=== PATIENT | male | born 1930 | race Caucasian/White ===

== ENCOUNTER 2017-05-18 00:48 | Inpatient (IN) | payer OTHER, MEDICARE ==
[~2017-05-18] VITALS: Ht 170.2 cm; Wt 88.5 kg
[~2017-05-18 00:48] MED LIST: ALBUTEROL 3 ML3 ML INH; AMITIZA24 MCG PO; ARICEPT10 M1 PO; ATROVENT 0.02%2.5 ML INH; COUMADIN 2.5 M2.5 MG PO; COUMADIN 3 MG TA3 MG PO; COUMADIN 5 MG TA5 MG PO; CRESTOR 10MG10 MG PO; DRISDOL50000 IU PO; ECOTRIN81 MG PO; ENABLEX PO; FISH OIL500 MG PO; FLEXERIL10 MG PO; FUROSEMIDE20 MG PO; LASIX20 MG PO; LIPITOR20 M2 PO; MELATONIN3 M4 PO; MUCINEX ER600 MG PO; NEURONTIN300 M1 PO; ONE DAILY MULT1 EAC2 PO; Oxygen INH; PREDNISONE10 MG PO; PREVACID 30MG30 MG PO; PREVACID30 M1 PO; PROSCAR5 M1 PO; PROZAC 10MG10 MG PO; ROBITUSSIN NIG237 ML PO; SALINE 90 ML90 ML NASB; Senokot S PO; TRAMADOL50 MG PO
--- NOTE | 2017-05-18 01:09 | ED DYSPNEA/ASTHMA COMPLAINT ---
History of Present Illness General Chief Complaint: Dyspnea (COPD, CHF, Other) Stated Complaint: BIBA FOR EVAL DIFF BREATHER Source: patient, old records, EMS Exam Limitations: poor historian Vital Signs & Intake/Output Vital Signs & Intake/Output Vital Signs Date Time Temp Pulse Resp B/P B/P Pulse O2 O2 Flow FiO2 Mean Ox Delivery Rate 05/18 0246 97.9 108 24 101/61 93 Nasal 6.0L Cannula 05/18 0143 91 Nasal 5.0L Cannula 05/18 0108 89 Nasal 3.0L Cannula 05/18 0053 98.5 121 22 99/55 86 Nasal 3.0L Cannula Allergies Coded Allergies: Penicillins (Intermediate, HIVES/BAD RASH 09/04/15) Reconcile Medications Albuterol Sulfate (Proventil) 2.5 MG/3 ML NEB 3 ML INH Q4 PRN BREATHING PROBLEMS (Reported) Reason to Stop at ADM:TRC NEBS Atorvastatin Calcium (Lipitor) 20 MG TABLET 1 TAB PO QHS CHOLESTEROL ( Reported) Donepezil Hyrochloride (Aricept 5MG Tab) 5 MG TABLET 2 TAB PO AT BEDTIME DEMENTIA (Reported) ERGOCALCIFEROL (VITAMIN D2) (Drisdol) 50,000 UNIT CAPSULE 50,000 IU PO Q168 Vit D deficiency take for 8 weeks then see your PCP Finasteride (Proscar) 5 MG TAB 1 TAB PO DAILY PROSTATE (Reported) Gabapentin (Neurontin) 300 MG CAP 1 CAP PO AT BEDTIME PAIN (Reported) Guaifenesin (Mucinex) 600 MG TAB.ER.12H 1 TAB PO DAILY COUGH (Reported) Lansoprazole (Prevacid) 30 MG CAPSULE.DR 1 CAP PO DAILY GERD (Reported) Lubiprostone (Amitiza) 24 MCG CAPSULE 1 CAP PO DAILY GI (Reported) Melatonin 5 MG TABLET 1 TAB PO AT BEDTIME SLEEP (Reported) Multivitamin (One Daily Multivitamin) 1 EACH TABLET 1 TAB PO DAILY SUPPLEMENT (Reported) Triage Note: [facility]. PER EMS REPORT PT HAS HAD PRODUCTIVE COUGH AND FEVERS X2 DAYS. SPO2 88% ON NASAL CANULA. PT RECEIVED 125 MG OF SOLUMEDROL FROM EMS AND 1 NEB TREATMENT. RESPIRATIONS EVEN AND MODERATELY LABORED. SKIN IS PALE, WARM AND DRY. Triage Nurses Notes Reviewed? yes HPI: Patient presents for evaluation of dyspnea that began gradually about 2 days ago. Although the patient denies any associated fever or cold symptoms cough or leg swelling he states he has been wheezing. Past History Travel History Traveled to [place] past 21 day No Medical History Any Pertinent Medical History? see below for history Neurological: dementia EENT: NONE Cardiovascular: diastolic CHF, hypertension, hyperlipidemia Respiratory: COPD, obstructive sleep apnea Gastrointestinal: GERD, hiatal hernia Hepatic: NONE Renal: benign prost hyperplasia Musculoskeletal: osteoarthritis Psychiatric: depression, insomnia Endocrine: NONE Blood Disorders: DVT Cancer(s): NONE MONOTYPE CASTER/Reproductive: NONE History of MRSA: No History of VRE: No History of CDIFF: No Pneumonia Vaccine: 06/14/06 Surgical History Surgical History: stent for kidney stone Psychosocial History Who do you live with Other (see notes) What is your primary language Monegasque Tobacco Use: Cognitive Impairment Daily Tobacco Use Amount/Type: =< 4 Cigarettes daily Family History Family History, If Any: No Known Family History. Hx Contributory? No Review of Systems Review of Systems Constitutional: Reports: no symptoms. EENTM: Reports: no symptoms. Respiratory: Reports: see HPI. Cardiovascular: Reports: no symptoms. GI: Reports: no symptoms. Genitourinary: Reports: no symptoms. Musculoskeletal: Reports: no symptoms. Skin: Reports: no symptoms. Neurological/Psychological: Reports: no symptoms. Hematologic/Endocrine: Reports: no symptoms. Immunologic/Allergic: Reports: no symptoms. All Other Systems: Reviewed and Negative Physical Exam Physical Exam Respiratory: SEE BELOW Comments: Gen.: Well-nourished, well-developed, moderate respiratory distress. Tachypneic /dyspneic. Head: Normocephalic, atraumatic. Eyes: Normal inspection bilaterally Ears: Normal inspection bilaterally Nose: Normal inspection Throat/mouth : Moist mucosa Neck: Supple, full range of motion, no goiter, no JVD Heart: Rapid slightly IRRegular rate and rhythm, no murmurs rubs or gallops Lungs: Bilateral rhonchi Chest: Nontender Back: Normal range of motion Abdomen: Soft, diffuse tenderness without rebound or guarding, nondistended, normal bowel sounds Extremities: Normal range of motion grossly, equal radial pulses, no cyanosis, bilateral 1+ lower extremity pitting edema Neurologic: Cranial nerves grossly intact, speech is clear Skin: warm and dry Psychiatric: Calm, cooperative, no apparent delusions or hallucinations Core Measures ACS in differential dx? No CVA/TIA Diagnosis No Sepsis Present: Yes Sepsis Focused Exam Completed? Yes Progress Differential Diagnosis: AMI, bronchitis, CHF, pneumonia, unstable angina Plan of Care: Orders Procedure Date/time Status Clear Liquid Diet 05/18 B Active LACTIC ACID 05/18 06 Active CBC WITHOUT DIFFERENTIAL 05/18 599 Active BASIC ELECTROLYTES PLUS BUN&CR 05/18 599 Active LACTIC ACID 05/18 0334 Active Pathway - chart 05/18 033 Active House Staff 05/18 033 Active Patient Data 05/18 332 Active Patient Data 05/18 032 Active Misc Message 05/18 032 Active ED Holding Orders 05/18 032 Active Admit to inpatient 05/18 032 Active Vital Signs 05/18 032 Active Code Status 05/18 032 Active BLOOD CULTURE 05/18 031 Active Add-on Test (ER Only) 05/18 024 Active Add-on Test (ER Only) 05/18 024 Active URINALYSIS 05/18 011 Active BLOOD CULTURE 05/18 010 Active TROPONIN LEVEL 05/18 010 Complete COMPREHENSIVE METABOLIC PANEL 05/18 010 Complete CBC WITHOUT DIFFERENTIAL 05/18 010 Complete B-TYPE NATRIURETIC PEP (BNP) 05/18 010 Complete PROTHROMBIN TIME 05/18 010 Complete LACTIC ACID 05/18 010 Complete EKG 05/18 010 Active VTE Mechanical Prophylaxis 05/18 UNK Active Telemetry/Bilingual Instructor 05/18 UNK Active Current Medications Sig/Pierre Start time Last Medication Dose Stop Time Status Admin Acetaminophen 650 MG Q6PRN PRN 05/18 0345 UNVr (Tylenol) Acetaminophen 1,000 MG Q6PRN PRN 05/18 034 UNVr (Ofirmev) Ceftriaxone Sodium 1,000 MG ONCE ONE 05/18 0300 UNVr (Rocephin) 05/18 030 Heparin Sodium 4,000 UNIT ONCE ONE 05/18 030 CAN (Porcine) 05/18 030 (Heparin Bolus) Metronidazole 500 MG ONCE ONE 05/18 030 UNir (Flagyl) 05/18 035 N/A 1 UNIT (No Carrier) Sodium Chloride 500 ML BOLUS ONE 05/18 0245 UNVr 05/18 (Normal Saline 0.9%) 05/18 034 0249 Laboratory Tests 05/18/17 0333: Sodium Cancelled, Potassium Cancelled, Chloride Cancelled, Carbon Dioxide Cancelled, Anion Gap Cancelled, BUN Cancelled, Creatinine Cancelled, BUN/ Creatinine Ratio Cancelled, CBC w Diff Cancelled, WBC Cancelled, RBC Cancelled, Hgb Cancelled, Hct Cancelled, MCV Cancelled, MCH Cancelled, RDW Cancelled, Plt Count Cancelled, MPV Cancelled, PUBS MCHC Cancelled 05/18/17 0100: Anion Gap 13, Estimated GFR > 60, BUN/Creatinine Ratio 17.8, Glucose 159 H, Lactic Acid 2.3 H, Calcium 9.0, Total Bilirubin 1.0, AST 28, ALT 37, Alkaline Phosphatase 101, Troponin I 0.02, Mcl-X-Dxiyxguvcgr Pept 1390 H, Total Protein 6.6, Albumin 3.7, Globulin 2.9, Albumin/Globulin Ratio 1.3, PT 13.4 H, INR 1.28 H, CBC w Diff MAN DIFF ORDERED, RBC 4.30 L, MCV 86.7, MCH 28.3, RDW 16.5 H, MPV 8.0, Gran % 84.4 H, Lymphocytes % 8.4 L, Monocytes % 6.3, Eosinophils % 0.6, Basophils % 0.3, Absolute Granulocytes 8.1 H, Segmented Neutrophils 80 H, Band Neutrophils 3, Absolute Lymphocytes 0.8 L, Lymphocytes 9 L, Monocytes 8, Absolute Monocytes 0.6, Absolute Eosinophils 0.1, Absolute Basophils 0, Platelet Estimate ADEQUATE, Polychromasia 1+, Hypochromic-Microcytic 1+, Poikilocytosis 1 +, Ovalocytes 1+, PUBS MCHC 32.7 L, Fld Total RBCs Counted 100 Microbiology 05/18 0335 BLOOD: Blood Culture - RECD 05/18 99 BLOOD: Blood Culture - RECD Diagnostic Imaging: Discussed w/RAD: Radiology Read. CXR Impression: PATIENT: SHEILA NOLASCO PRESENT AGE: 87 PATIENT ACCOUNT NO: [id number] : 32 LOCATION: [facility] ORDERING PHYSICIAN: Javan Ragland MD SERVICE DATE: 05/18/17 EXAM TYPE: RAD - XRY-PORTABLE CHEST XRAY EXAMINATION: XR PORTABLE CHEST CLINICAL INFORMATION: Shortness of breath, cough COMPARISON: Chest radiographs dated 10/07/2015. TECHNIQUE: Portable frontal view of the chest was obtained. FINDINGS: There is redemonstrated eventration of the left hemidiaphragm which results in increased density over the heart and loss of visualization of the medial left hemidiaphragm. No focal consolidation or effusion. Cardiac mediastinal silhouette is prominent but stable. No pneumothorax. No acute osseous abnormalities. IMPRESSION: 1. No focal consolidation or effusion. 2. Increased density over the heart favored to represent chronic eventration of the left hemidiaphragm. DICTATED BY: Sonu Spangler MD DATE/TIME DICTATED:05/18/17115 EGG WORKER:SHAMEKA DATE/TIME TRANSCRIBED:05/18/17115 CONFIDENTIAL, DO NOT COPY WITHOUT APPROPRIATE AUTHORIZATION. <Electronically signed in Other Vendor System> SIGNED BY: Sonu Spangler MD 05/18/17 0123 Initial ED EKG: rate (133), AFIB Prior EKG: changed (SINUS TACHY ON PRIOR) Rhythm Strip: atrial fibrillation Comments: 05/18/2017 2:46:06 AM I have updated Sheila and his on test results to this point. With auscultation of the lungs there is wheezes and congestion over the left chest and I suspect he has a pneumonia developing despite the lack of pneumonia on chest x-ray. He also feels warm to the touch and a repeat set of vital signs being obtained. He continues to be tachypneic. I suspect a left sided pneumonia and have ordered fluids (I do not feel he is in congestive heart failure). He also appears to be in new-onset atrial fibrillation. 05/18/2017 3:13:18 AM I have initiated therapy for the patient's new onset atrial fibrillation with heparin and the diverticulitis and aspiration pneumonia with Rocephin and Flagyl. I've discussed this patient's case with Dr. Serrano. 05/18/2017 3:54:37 AM I received a call from Dr. Serrano who reviewed this patient's previous records and noted that the patient suffered an intracranial bleeding episode associated with anticoagulation for prior DVT. She has asked to discontinue the heparin orders. ED Sepsis Exam Date of Focused Sepsis Exam: 05/18/17 Time of Focused Sepsis Exam: 0330 Sepsis Cardiac Exam: Tachycardia Sepsis Resp Exam: Ronchi Sepsis Cap Refill Exam: <2 Sec Sepsis Peripheral Pulse Exam: Normal Sepsis Peripheral Pulse Location: Radial Sepsis Skin Color Exam: Normal for Ethnicity Skin Temp/Moisture Exam: Warm/Dry Departure Departure Disposition: STILL A PATIENT Condition: Guarded Clinical Impression Primary Impression: Aspiration pneumonia Qualifiers: Aspiration pneumonia type: unspecified Laterality: right Lung location: upper lobe of lung Qualified Code: J69.0 - Pneumonitis due to inhalation of food and vomit Secondary Impressions: Anemia Qualifiers: Anemia type: unspecified type Qualified Code: D64.9 - Anemia, unspecified Diverticulitis Qualifiers: Diverticulitis site: large intestine Diverticulitis bleeding: without bleeding Diverticulitis complication: without perforation or abscess Qualified Code: K57.32 - Diverticulitis of large intestine without perforation or abscess without bleeding Ureterolithiasis Referrals: Mohsen Cardona MD (PCP/Family) Departure Forms: Customer Survey General Discharge Information Admission Note Spoke With: Jael Serrano MD Documentation of Exam: Documentation of any treatments & extenuating circumstances including Concerns Regarding Discharge (functional status, medication knowledge or non-compliance, living conditions, etc.) that warrant an admission rather than observation: Patient presents with worsening dyspnea and tachypnea along with hypoxia. He has aspiration pneumonia, diverticulitis and a large obstructing ureteral calculus. This patient cannot be treated safely as an outpatient given the multitude of an acute medical issues. Given his advanced age and multiple medical comorbidities I feel he has a significant risk of mortality. In addition to the above he has what appears to be new onset atrial fibrillation, complicating his overall clinical picture. He now requires hospitalization for aggressive management of his aspiration pneumonia and diverticulitis to prevent subsequent sepsis and . He is also at high risk of urosepsis given his obstructive renal calculus. Cardiology consultation should be considered given the atrial fibrillation. Patient to be placed on continuous pvc monitor and treated with anticoagulation to prevent cardioembolic phenomenon. If necessary rate controlling medications should also be administered. Regarding the patient 's obstructive renal calculus a urology consultation should be considered the possibility of stenting. Regarding the patient's pneumonia and diverticulitis, these should be treated with IV antibiotics and pulmonary, infectious disease and GI consultations obtained as needed. Culture results should be followed and treated accordingly. Patient will require a multiple day hospitalization. Patient's current prognosis is guarded. Critical Care Note Critical Care Note Critical Care Time: 30-74 min
[2017-05-18 01:18] LABS: ABSOLUTE BASOPHIL COUNT 0 /CUMM (0.0-0.2); ABSOLUTE EOSINOPHIL COUNT 0.1 /CUMM (0.0-0.7); ABSOLUTE GRANULOCYTE CT 8.1 /CUMM (1.4-6.5); ABSOLUTE LYMPH COUNT 0.8 /CUMM (1.2-3.4); ABSOLUTE MONOCYTE COUNT 0.6 /CUMM (0.10-0.60); BASOPHIL % 0.3 % (0.0-2.0); EOSINOPHIL % 0.6 % (0-5); HEMATOCRIT 37.2 % (42-52); MEAN CORPUSCULAR HGB 28.3 PG (27.0-31.0); MEAN CORPUSCULAR HGB CONC 32.7 G/DL (33.0-37.0); MEAN CORPUSCULAR VOLUME 86.7 FL (80.0-94.0); PLATELET COUNT 191 /CUMM (130-400); RBC DISTRIBUTION WIDTH 16.5 % (11.5-14.5); WHITE BLOOD CELL COUNT 9.6 /CUMM (4.8-10.8)
[2017-05-18 01:20] LABS: GRANULOCYTE % 84.4 % (42.2-75.2)
--- NOTE | 2017-05-18 01:23 | RADIOLOGY REPORT ---
EXAMINATION: XR PORTABLE CHEST CLINICAL INFORMATION: Shortness of breath, cough COMPARISON: Chest radiographs dated 10/07/2015. TECHNIQUE: Portable frontal view of the chest was obtained. FINDINGS: There is redemonstrated eventration of the left hemidiaphragm which results in increased density over the heart and loss of visualization of the medial left hemidiaphragm. No focal consolidation or effusion. Cardiac mediastinal silhouette is prominent but stable. No pneumothorax. No acute osseous abnormalities. IMPRESSION: 1. No focal consolidation or effusion. 2. Increased density over the heart favored to represent chronic eventration of the left hemidiaphragm.
--- NOTE | 2017-05-18 02:51 | CT SCAN REPORT ---
EXAMINATION: CT CHEST, ABDOMEN AND PELVIS WITH CONTRAST CLINICAL INFORMATION: Dyspnea, rhonchi, diffuse tenderness with mild distention. COMPARISON: CTA chest dated 02/08/2014, CT abdomen and pelvis dated 11/04/2013. TECHNIQUE: Multidetector volumetric imaging was performed from the thoracic inlet through the pubic symphysis following the administration of: Oral contrast: None Intravenous contrast: 95 mL Optiray 320 No contrast reaction reported Sagittal and coronal reformatted images were obtained on the technologist workstation. Total exam dose-length product 945 mGy-cm FINDINGS: CHEST: LUNGS: Evaluation of the lung parenchyma is limited secondary to respiratory motion. There is streaky and patchy consolidation in the right lower lobe and posterior right upper lobe. There is consolidation and volume loss in the left lower lobe which may represent compressive atelectasis secondary to the patient's chronic large hiatal hernia into the posterior left hemithorax. MEDIASTINUM: Normal heart size. No pericardial effusion. No hilar or mediastinal lymphadenopathy. Large hiatal hernia containing the entire stomach filling the posterior inferior left hemithorax, unchanged from prior. VASCULAR: No thoracic aortic aneurysm or dissection. Scattered atherosclerotic vascular calcifications are noted within the thoracic aorta. Central pulmonary arteries opacify normally. ABDOMEN/PELVIS: LIVER, GALLBLADDER, AND BILIARY TREE: The liver is normal in size, shape, and attenuation. No focal hepatic lesion or biliary ductal dilatation is present. The gallbladder is unremarkable with no evidence of radiopaque gallstones, gallbladder wall thickening, or obvious pericholecystic inflammatory changes. PANCREAS: A prominent small bowel diverticulum is noted in the region of the head of the pancreas. The pancreas is mildly atrophic, with a punctate calcification in the tail the pancreas, unchanged. SPLEEN: Normal size. No focal lesion. ADRENAL GLANDS: Normal; no mass. KIDNEYS AND URETERS: There is a 1.8 cm proximal right ureteral stone with associated hydronephrosis. Additional densities within the right renal collecting system are noted measuring up to 1.6 cm transaxially, suspicious for additional nonobstructive intrarenal calculi. Bilateral exophytic lower pole renal cysts are again noted. GASTROINTESTINAL TRACT: No dilated or abnormal appearing small bowel. There is sigmoid diverticulosis. There is some focal colonic wall thickening and pericolonic fat stranding in the left lower quadrant suspicious for acute diverticulitis. The appendix is not definitively seen but there is no focal right lower quadrant inflammatory stranding to suggest acute appendicitis. ABDOMINAL WALL: No significant hernia is appreciated. LYMPHOVASCULAR STRUCTURES: No lymphadenopathy. There are diffuse atherosclerotic vascular calcifications. There is mild ectasia of the abdominal aorta without aneurysm. A permanent infrarenal IVC filter is noted. The IVC distal to this is small in caliber, unchanged from prior. BLADDER: No focal mass or wall thickening seen. No bladder calculi. PELVIC VISCERA: Unremarkable. OSSEOUS STRUCTURES: No acute or suspicious osseous abnormality. Multilevel degenerative changes are noted throughout the spine. IMPRESSION: 1. Acute diverticulitis of the proximal sigmoid colon in the left lower quadrant. No abscess or pneumoperitoneum. 2. Obstructive 1.8 cm proximal right ureteral calculus with associated right hydronephrosis. Additional large nonobstructive right sided intrarenal calculi are noted. 3. Streaky and patchy consolidation in the right lower lobe and posterior right upper lobe. Findings could represent atelectasis or pneumonia. 4. Stable large hiatal hernia containing the entire stomach.
[2017-05-18 03:08] LABS: PT 13.4 SEC (9.4-12.5)
--- NOTE | 2017-05-18 04:55 | History & Physical ---
Bennie SANTIAGO,[facility] 05/18/17 0454: General Information and HPI History of Present Illness: Mr. 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 Most of the history was obtained from patient's . According to her, she visits her regimen almost every day but for the past 1 week he seems more weak and lethargic. He started having productive cough and fever for the past 2 days. decided to bring him to the hospital after she received a call from nursing facility today regarding Mr. Umanzor spiking a temperature of 101.0. and his O2 sats were 88% on 2 L of oxygen. Patient denies any chest pain, shortness of breath, palpitations, nausea, vomiting, diarrhea/constipation, abdominal pain , pain or burning with urination or blood in the urine. Of note, patient has been wheelchair-bound for the past 2 years. Patient received IV Solu-Medrol 125 mg and 1 nebulization treatment En Route to the hospital. Allergies/Medications Allergies: Coded Allergies: Penicillins (Intermediate, HIVES/BAD RASH 09/04/15) Home Med list Atorvastatin Calcium (Lipitor) 20 MG TABLET 1 TAB PO QPM CHOLESTEROL ( Reported) Citalopram Hydrobromide (Celexa) 10 MG TABLET 0.5 TAB PO DAILY MENTAL HEALTH (Reported) Docusate Sodium 100 MG CAPSULE 1 CAP PO DAILY CONSTIPATION (Reported) Donepezil HCl (Aricept) 10 MG TABLET 1 TAB PO QPM DEMENTIA (Reported) Finasteride (Proscar) 5 MG TABLET 1 TAB PO DAILY PROSTATE (Reported) Gabapentin (Neurontin) 300 MG CAPSULE 1 CAP PO QPM PAIN (Reported) Ipratropium/Albuterol Sulfate (Iprat-Albut 0.5-3(2.5) MG/3 Ml) 0.5 MG-3 MG (2.5 MG BASE)/3 ML AMPUL.NEB 1 UNIT PO BID SHORTNESS OF BREATH (Reported) Lansoprazole (Prevacid) 30 MG CAPSULE.DR 1 CAP PO DAILY GERD (Reported) Melatonin 3 MG TABLET 1 TAB PO QPM SLEEP (Reported) Mirtazapine 30 MG TABLET 1 TAB PO QPM SLEEP (Reported) Multivitamin (One Daily Multivitamin) 1 EACH TABLET 1 TAB PO DAILY VITAMIN SUPPORT (Reported) Polyvinyl Alcohol (Artificial Tears) 1.4 % DROPS 3 DROP OS BID DRY EYE ( Reported) Sennosides (Senna) 8.6 MG TABLET 1 TAB PO BID CONSTIPATION (Reported) Past History Travel History Traveled to [place] past 21 day No Medical History Neurological: dementia EENT: NONE Cardiovascular: diastolic CHF, hypertension, hyperlipidemia Respiratory: COPD, obstructive sleep apnea Gastrointestinal: GERD, hiatal hernia Hepatic: NONE Renal: benign prost hyperplasia Musculoskeletal: osteoarthritis Psychiatric: depression, insomnia Endocrine: NONE Blood Disorders: DVT Cancer(s): NONE CORRECTIONAL NURSE/Reproductive: NONE History of MRSA: No History of VRE: No History of CDIFF: No Pneumonia Vaccine: 06/14/06 Surgical History Surgical History: stent for kidney stone Past Family/Social History Family History Relations & Conditions if any No Known Family History. Psychosocial History Where do you live? Senior Living Facility Primary Language: Macanese Smoking Status: Former Smoker ETOH Use: occasional use Illicit Drug Use: denies illicit drug use Functional Ability Ambulation: wheel chair Review of Systems Review of Systems Constitutional: Reports: weakness. EENTM: Reports: no symptoms. Cardiovascular: Reports: no symptoms. Respiratory: Reports: cough, short of breath, sputum production. GI: Reports: no symptoms. Genitourinary: Reports: no symptoms. Musculoskeletal: Reports: no symptoms. Skin: Reports: no symptoms. Neurological/Psychological: Reports: no symptoms. Hematologic/Endocrine: Reports: no symptoms. Immunologic/Allergic: Reports: no symptoms. All Other Systems: Reviewed and Negative Exam & Diagnostic Data Last 24 Hrs of Vital Signs/I&O Vital Signs Date Time Temp Pulse Resp B/P B/P Pulse O2 O2 Flow FiO2 Mean Ox Delivery Rate 05/18 0246 97.9 108 24 101/61 93 Nasal 6.0L Cannula 05/18 0143 91 Nasal 5.0L Cannula 05/18 0108 89 Nasal 3.0L Cannula 05/18 0053 98.5 121 22 99/55 86 Nasal 3.0L Cannula Intake & Output 05/18 0800 05/18 0000 05/17 1600 Intake Total 0 Output Total Balance 0 Intake, Oral 0 Patient 220 lb Weight Weight Estimated Measurement Method Physical Exam General Appearance Alert, Cooperative, No Acute Distress Skin No Rashes, No Breakdown HEENT Atraumatic, PERRLA, EOMI, dry mucous membranes Cardiovascular Normal S1, Normal S2, Irregular Lungs bilateral rhonchi Abdomen Normal Bowel Sounds, Soft, left lower quadrant tenderness Extremities No Clubbing, No Cyanosis, Normal Pulses, +1 pitting edema bilaterally Last 24 Hrs of Labs/Jack: Laboratory Tests 05/18/17 0530: pH Pending, pCO2 Pending, pO2 Pending, HCO3 Pending, ABG O2 Sat (Measured) Pending, P-50 (Temp Corrected) Pending, Carboxyhemoglobin Pending, O2 Concentration % Pending, Temperature Pending, O2 Delivery Method Pending, Phlebotomy Draw Site Pending 05/18/17 0334: Lactic Acid Cancelled 05/18/17 0333: Sodium Cancelled, Potassium Cancelled, Chloride Cancelled, Carbon Dioxide Cancelled, Anion Gap Cancelled, BUN Cancelled, Creatinine Cancelled, BUN/ Creatinine Ratio Cancelled, CBC w Diff Cancelled, WBC Cancelled, RBC Cancelled, Hgb Cancelled, Hct Cancelled, MCV Cancelled, MCH Cancelled, RDW Cancelled, Plt Count Cancelled, MPV Cancelled, PUBS MCHC Cancelled 05/18/17 0100: Anion Gap 13, Estimated GFR > 60, BUN/Creatinine Ratio 17.8, Glucose 159 H, Lactic Acid 2.3 H, Calcium 9.0, Total Bilirubin 1.0, AST 28, ALT 37, Alkaline Phosphatase 101, Troponin I 0.02, [id number]-Zlsrstoswzd Pept 1390 H, Total Protein 6.6, Albumin 3.7, Globulin 2.9, Albumin/Globulin Ratio 1.3, PT 13.4 H, INR 1.28 H, CBC w Diff MAN DIFF ORDERED, RBC 4.30 L, MCV 86.7, MCH 28.3, RDW 16.5 H, MPV 8.0, Gran % 84.4 H, Lymphocytes % 8.4 L, Monocytes % 6.3, Eosinophils % 0.6, Basophils % 0.3, Absolute Granulocytes 8.1 H, Segmented Neutrophils 80 H, Band Neutrophils 3, Absolute Lymphocytes 0.8 L, Lymphocytes 9 L, Monocytes 8, Absolute Monocytes 0.6, Absolute Eosinophils 0.1, Absolute Basophils 0, Platelet Estimate ADEQUATE, Polychromasia 1+, Hypochromic-Microcytic 1+, Poikilocytosis 1 +, Ovalocytes 1+, PUBS MCHC 32.7 L, Fld Total RBCs Counted 100 Microbiology 05/18 529 URINE ROUT: Urine Culture - ORD 05/18 502 URINE ROUT: Legionella Antigen - COLB 05/18 502 URINE ROUT: Streptococcus pneumoniae Antigen (M - COLB 05/18 050 LOWER RESP: Respiratory Culture - COLB 05/18 502 LOWER RESP: Gram Stain - COLB 05/18 033 BLOOD: Blood Culture - RECD 05/18 99 BLOOD: Blood Culture - RECD Diagnostic Data EKG Results Atrial flutter Heart rate 133 CXR Results IMPRESSION: 1. No focal consolidation or effusion. 2. Increased density over the heart favored to represent chronic eventration of the left hemidiaphragm. Other Results CT ABD & PELVIS W IV CONTRAST; CT CHEST W IV CONTRAST IMPRESSION: 1. Acute diverticulitis of the proximal sigmoid colon in the left lower quadrant. No abscess or pneumoperitoneum. 2. Obstructive 1.8 cm proximal right ureteral calculus with associated right hydronephrosis. Additional large nonobstructive right sided intrarenal calculi are noted. 3. Streaky and patchy consolidation in the right lower lobe and posterior right upper lobe. Findings could represent atelectasis or pneumonia. 4. Stable large hiatal hernia containing the entire stomach. Assessment/Plan Assessment: Mr. 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 A/P; 1. Sepsis secondary to Pneumonia(aspiration or community-acquired); Patient meets SIRS criteria with a heart rate of 121, respiratory rate of 22, blood pressure of 99/55, white blood cell count of 9.6 but high segmented neutrophils and 3 bands, a lactic acid level of 2.3 and with the chest x-ray/CT scan evidence of patchy consolidation in the right lower lobe and posterior right upper lobe suggestive of pneumonia. - We'll start the patient on ceftriaxone and Flagyl(to cover gram negatives and anaerobes) - Aspiration precautions - Follow-up blood culture - Urine strep pneumonia and legionella antigens - Continue supplemental oxygen - Continue gentle IV hydration.(We will watch for any signs of fluid overload as the patient has a history of diastolic CHF and has a proBNP of 1390). - Initial lactic acid level is 2.3, will repeat. 2. New onset atrial fibrillation; - Likely secondary to underlying infection - Will monitor heart rate - Patient has a TOD VASC score of 4, but will hold off on anticoagulation for now because of the history of intracranial bleeding with Coumadin. - Repeat strokes and EKG 2 - We'll obtain an echocardiogram - Cardiology consult 3. Diverticulitis; - Continue IV ceftriaxone and Flagyl - We'll start the patient on clear liquid diet. 4. Right ureteral calculus with right-sided hydronephrosis; - Urology consult - Follow-up UA and urine culture. 5. Chronic medical conditions; - Continue home medications. DVT prophylaxis; subcutaneous heparin Patient is full code As Ranked By This Provider Problem List: 1. Sepsis 2. Aspiration pneumonia Qualifiers Aspiration pneumonia type: unspecified Laterality: right Lung location: upper lobe of lung Qualified Code: J69.0 - Pneumonitis due to inhalation of food and vomit 3. Diverticulitis Qualifiers Diverticulitis site: large intestine Diverticulitis bleeding: without bleeding Diverticulitis complication: without perforation or abscess Qualified Code: K57.32 - Diverticulitis of large intestine without perforation or abscess without bleeding 4. Ureterolithiasis Core Measures/Misc (01/28) Acute Coronary Syndrome ACS Diagnosis: No Congestive Heart Failure Congestive Heart Failure Diagnosis No Cerebrovascular Accident CVA/TIA Diagnosis: No VTE (View Protocol) VTE Risk Factors Age>40 No Mechanical VTE Prophylaxis d/t N/A MechProphylax Ordered No VTE Pharm Prophylaxis d/t NA PharmProphylax ordered Sepsis (View protocol) Sepsis Present: Yes Kanwal Flanagan 05/18/17 0501: Resident Review Statement Resident Statement: examined this patient, discussed with manufacturing engineering intern Other Findings: Patient is a 87-year-old gentleman with a past medical history significant for hypertension hyperlipidemia, diastolic heart failure, history of DVT with IVC filter currently not on any anticoagulation due to intracranial bleed/hemorrhage presented to the ED throwing ambulance from [facility] with a chief complaints of worsening weakness , fever and productive cough. Patient is a poor historian so most of the history was obtained from the . As per , patient has been feeling more weak and lethargic for the last 1 week(bedridden most of the time). He has been having productive cough with trouble breathing as well. Appetite has been low. Today the got a call from the long-term that patient had a temperature of 101.1 and he desaturated to 88% on 2 L, was sent into the ER for further assessment. On review of systems patient denied any nausea vomiting/abdominal discomfort denied any urinary complaints. He is wheelchair-bound for the last 2 years(? No clear-cut etiology). Vitals on admission temperature 98.5, pulse 125, respiratory rate 22, blood pressure 99/55 improved to 101/61 on 3 L initially currently on 6 L. On examination General Appearance: well developed/nourished, Alert, Oriented X3, mild distress , appeared lethargic HEENT :Atraumatic,PERRLA, EOMI, Mucous Membr. Dry mucous membranes Neck: Supple, No JVD, Carotid bruits.Normal inspection, full range of motion Respiratory:decreased breath sounds with ronchi in all lung fernandes. Cardiovascular: Irregularly irregular rate and rhythm No murmurs Gastrointestinal: Normal Bowel Sounds, Soft, LLQ tenderness. Back: normal inspection Extremities: Bilateral 2+ pitting edema. Pertinent labs on admission: No evidence of leukocytosis but bandemia and granulocytosis, H&H low at 0.2/37.2 with RDW 16.5, normal BP elevated proBNP 1390 elevated lipase level to 2.3. Full set of troponin 0.02 EKG showed A. fib with RVR, rate of [address] abdomen and pelvis showed:: 1. Acute diverticulitis of the proximal sigmoid colon in the left lower quadrant. No abscess or pneumoperitoneum. 2. Obstructive 1.8 cm proximal right ureteral calculus with associated right hydronephrosis. Additional large nonobstructive right sided intrarenal calculi are noted. 3. Streaky and patchy consolidation in the right lower lobe and posterior right upper lobe. Findings could represent atelectasis or pneumonia. 4. Stable large hiatal hernia containing the entire stomach. Problem list. 1. Acute hypoxic respiratory failure with sepsis due to community-acquired pneumonia/aspiration pneumonia. 2. Acute diverticulitis of the proximal sigmoid colon 3. A. fib with RVR in the setting of underlying infection/dehydration 4. Obstructive right ureteral calculus with associated right-sided hydronephrosis. 5. Acute on chronic diastolic heart failure. 6. History of BPH 7. History of attention hyperlipidemia 8. History of dementia 9. History of COPD 10. History of GERD Plann: 1. Acute hypoxic respiratory failure with sepsis due to community-acquired pneumonia/aspiration pneumonia. * Admit the patient to telemetry floor * Continue with IV ceftriaxone. * Obtain blood and urine cultures, urine strep pneumo antigens. * Continue gentle hydration(watch for any signs of fluid overload in setting of elevated proBNP). * Monitor vitals every 4 hours * Continue oxygen saturation above 92%. 2. Acute diverticulitis of the proximal sigmoid colon: * Continue IV ceftriaxone and Flagyl. * Clear liquid diet for now. 3. A. fib with RVR in the setting of underlying infection/dehydration: * [id number] score is high, but will hold off any anticoagulation at this time due to the history of intracranial bleed. * Risks and benefits of not starting the pt on anticoagulation has been discussed with the patient and . * Will do 2 more sets of troponin and EKG. * Obtain cardiology consult the morning 4. Obstructive right ureteral calculus with associated right-sided hydronephrosis. * Obtain urology consult in the morning for stone removal/stent placement. 5. Acute on chronic diastolic heart failure. * Careful with the fluids * Obtain 2-D echocardiogram * Obtain cardiology consult 6. History of BPH * Resume medications 7. History of hypertension hyperlipidemia * Hold antihypertensive for borderline blood pressure * Continue atorvastatin 8. History of dementia * Continue Aricept. 9. History of COPD * Continue home inhalers. 10. History of GERD * Continue PPI DVT prophylaxis with Lovenox Patient is full code Jael Serrano 05/18/17 0727: Attending MD Review Statement Attending Statement Attending MD Statement: examined this patient, discuss w/resident/PA/LAB REP, agreed w/resident/PA/LAB REP, discussed with family, reviewed EMR data (avail), reviewed images, amended to note Attending Assessment/Plan: CC: Shortness of breath PMH: Dementia,HFpEF, HTN, HLD, COPD on 2 L nasal cannula and nighttime, JACK not on CPAP, BPH, history of nephrolithiasis, history of DVT and decortication secondary to intracranial hemorrhage, s/p ivc filter History is mostly obtained from patient's as patient is tachypneic and respiratory discomfort and hard of hearing. Patient's received a call from long-term that patient's fever was 101 today and his oxygen saturation dropped to 88% so he was sent to ER. According to patient's patient has been lethargic and weak since last 1 week and she has noticed productive cough, chest congestion since last 2 days patient does not endorse any nausea, vomiting , choking, abdominal pain. He is bedbound for unclear reasons, urinary incontinence. Vitals: T max 98.5, pulse 121, RR 22, blood pressure 99/55, saturating 93% on 6 L nasal cannula On exam: A O 3, cooperative, hard of hearing, moderate respiratory distress, neck supple, JVD not elevated, no lymphadenopathy, mucosa dry, decreased strength bilateral lower extremity, tone normal, bilateral lower extremity pitting edema +2, no obvious skin rashes or inflammation CVS: S1-S2, irregular. RS: Rhonchorous throughout the lung fernandes. Abdomen: Soft, tender left lower quadrant, no guarding or rigidity ND, bowel sounds present. No pressure ulcers or skin breakdowns Labs: WBC 9.6, neutrophils 84%, bands 3, hemoglobin 12.2, hematocrit 37.2, platelet 191, sodium 141, potassium 3.9, chloride 104, bicarbonate 24, BUN 16, creatinine 0.9, glucose 159, calcium 9.0, BNP 1390, lactate 2.3, INR 1.28 AB.41/36/88/23 on [address] abdomen and pelvis and chest without IV contrast: 1. Acute diverticulitis of the proximal sigmoid colon in the left lower quadrant. No abscess or pneumoperitoneum. 2. Obstructive 1.8 cm proximal right ureteral calculus with associated right hydronephrosis. Additional large nonobstructive right sided intrarenal calculi are noted. 3. Streaky and patchy consolidation in the right lower lobe and posterior right upper lobe. Findings could represent atelectasis or pneumonia. 4. Stable large hiatal hernia containing the entire stomach. Assessment and plan 87-year-old male with significant past medical history presented in ER from long-term for fever spike and hypoxia, patient has been weak and lethargic since last 1 week and who cough with sputum production and chest congestion since last 2 days. Patient is dehydrated on examination JVD is not elevated, coarse crackles on right side and wheezing and rhonchi on left side of the chest. Bilateral pedal edema, no skin rashes this tenderness on left lower quadrant on palpation. He is found to have A. fib with RVR, initially mildly hypotensive on arrival, no significant leukocytosis but left shift, lactic acidosis. Patient's proBNP is mildly elevated but patient does not appear in congestive heart failure at this point. I think his A. fib with RVR is secondary to pneumonia which is clear on has CT imaging. He also is found to have left- sided diverticulitis, obstructive 1.8 cm proximal right ureteral calculus with hydronephrosis. Given his infiltrates on right side, continue on ceftriaxone and Flagyl which will cover diverticulitis as well as pneumonia. Heart rate improved after hydration, now rate controlled medications required, currently not on heparin secondary to history of intracranial hemorrhage. I had detailed discussion with patient's regarding multiple conditions and plan. Patient has urinary incontinence. No obvious skin rashes or breakdowns + Severe sepsis secondary to pneumonia + Acute hypoxic respiratory failure secondary to pneumonia + Acute diverticulitis + Right-sided hydronephrosis with obstructing ureteric + A. fib with RVR - Admit to telemetry - Continuous telemetry monitoring - Strict I's and O's - Continue normal saline at 75 - 100 mL per hour - Watchful for any respiratory decompensation - Blood cultures, UA and urine cultures, sputum cultures, influenza - Continue IV ceftriaxone and Flagyl for now, broadened antibiotic is significant leukocytosis or fever spike to ceftaz and Flagyl consider adding vancomycin - Low threshold to transfer to ICU if patient persistently hypoxic or hypotensive - Serial troponin and EKG - Cardiology consult in a.m. - 2-D echo in a.m. - No anticoagulation for now for A. fib, risks discussed with patient's - Urology consult for hydronephrosis - Continue his home medications - Adequate pain control - TRC and nebulization with albuterol and ipratropium
--- NOTE | 2017-05-18 07:28 | Admission Certification ---
Admission Certification Certification Statement - As attending physician, I certify that at the time of - admission, based on clinical presentation, severity of - symptoms, need for further diagnostic testing and - therapeutic interventions, and risk of adverse outcomes - without in-hospital treatment, in my clinical assessment, - this patient requires an acute hospital stay for a minimum - of two nights or longer. I have also considered psychsocial - factors such as support system, advanced age, financial - issues, cognitive issues, and failed out-patient treatments, - past re-admission history, safety of patient, and lack of - compliance as applicable. Specific rationale supporting this admission is: Acute hypoxic respiratory failure secondary to pneumonia, A. fib with RVR, hydronephrosis, diverticulitis
[2017-05-18 07:50] LABS: ABSOLUTE BASOPHIL COUNT 0 /CUMM (0.0-0.2); ABSOLUTE EOSINOPHIL COUNT 0 /CUMM (0.0-0.7); ABSOLUTE LYMPH COUNT 0.9 /CUMM (1.2-3.4); HEMATOCRIT 33.5 % (42-52)
[2017-05-18 07:51] LABS: ABSOLUTE GRANULOCYTE CT 10.2 /CUMM (1.4-6.5); ABSOLUTE MONOCYTE COUNT 1.1 /CUMM (0.10-0.60); BASOPHIL % 0.2 % (0.0-2.0); EOSINOPHIL % 0.1 % (0-5); GRANULOCYTE % 82.7 % (42.2-75.2); MEAN CORPUSCULAR HGB 28.5 PG (27.0-31.0); MEAN CORPUSCULAR HGB CONC 32.9 G/DL (33.0-37.0); MEAN CORPUSCULAR VOLUME 86.4 FL (80.0-94.0); MEAN PLATELET VOLUME 8.6 FL (7.4-10.4); PLATELET COUNT 176 /CUMM (130-400); RBC DISTRIBUTION WIDTH 16.3 % (11.5-14.5); RED BLOOD CELL CT 3.88 /CUMM (4.70-6.10); WHITE BLOOD CELL COUNT 12.3 /CUMM (4.8-10.8)
[2017-05-18] MEDS ORDERED: CELEXA10 M1 PO (08:11)
[2017-05-18] MEDS ORDERED: DOCUSATE SODIU100 M3 PO (08:12)
[2017-05-18] MEDS ORDERED: ARTIFICIAL TEAR15 M8 OS (08:15)
[2017-05-18] MEDS ORDERED: SENNA8.6 M3 PO (08:16)
[2017-05-18] MEDS ORDERED: IPRAT-ALBUT 0.5-3 ML PO (08:16)
[2017-05-18] MEDS ORDERED: MIRTAZAPINE30 M2 PO (08:21)
--- NOTE | 2017-05-18 11:45 | Event Note ---
Event Note Event Note: Patient is an 85-year-old male with a past medical history of COPD on 2 L, diastolic CHF, chronic DVT status post IVC not on anticoagulation due to intracranial bleed, hypertension, hyperlipidemia, that came in from [facility] for productive cough and fever for the past 2 days. His temperature here was found to be 101.0 and O2 sats are 88% on 2 L of oxygen. He denied chest pain, shortness of breath, palpitations, nausea vomiting, diarrhea constipation, abdominal pain, bloody bowel movements, urinary incontinence, burning, hematuria. Patient's WBC count was found to be 9.6 on arrival and 13 later in the day. Hemoglobin was 12.2, creatinine 9, lactic acid was found to be 2.3 at admission and 3.4 later in the day which fell to 2.4 and then hay to 2. 6 in the evening. He was also found to have proBNP of 1390 and left shift. Chest x-ray showed no focal consolidation CT abdomen and pelvis showed acute diverticulitis of the proximal sigmoid colon in the lower left quadrant with no abscess or pneumoperitoneum. Additionally ureteral calculus with hydronephrosis is seen. CT chest showed stable large hiatal hernia containing the entire stomach and streaky and patchy consolidation in the right lower lobe and posterior right upper lobe labor representative of atelectasis or pneumonia. We took urine, lower respiratory, blood cultures and started the patient on ceftriaxone and Flagyl. We also check urine strep pneumonia and legionella antigens. We started the patient 100 mL per hour of fluid and follow lactic acid. We decided to add Vanco as patient came from [facility]. We later in the day switched ceftriaxone to ceftaz edema after consult with Quinn Redmond MD, infectious disease. He is allergic to penicillin but he was tolerating ceftriaxone well. We ordered an echocardiogram and a flu swab and increase the fluids to 125 for low blood pressure with resulting blood pressure of 110/60. We also started the patient on aspirin. Cardio consult was reportedly placed but we did not see collar closer lockstitch follow-up in the notes as of 6:30 PM. Urology was consulted for ureteral calculus with hydronephrosis.
--- NOTE | 2017-05-18 15:32 | Cons- Infect Disease ---
General Information and HPI Consulting Request Date of Consult: 05/18/17 Requested By: Siobhan Paul MD Reason for Consult: Rule out pneumonia and diverticulitis Source of Information: patient, old records Exam Limitations: clinical condition, dementia, poor historian History of Present Illness: This is an 87-year-old man, long-term resident, wheelchair bound over the past 2 years, with a history of dementia, COPD, maintained on 2 L of oxygen, obstructive sleep apnea, not on CPAP, diastolic CHF, chronic DVT, status post IVC filter and not on anticoagulation because of an intracranial bleed, hypertension, hyperlipidemia, nephrolithiasis, BPH, and GERD admitted early this morning after he was sent to the emergency room with a one-week history of lethargy and weakness and more acute onset of a productive cough and fever, with one dose of Solumedrol 125 mg and one nebulizer treatment given by EMS. On admission he was initially afebrile but developed a low-grade fever to 100.5 later in the morning. Laboratory data revealed a white blood cell count of 10, 000, BUN/creatinine 16 and 0.9, lactic acid 2.3, with normal liver enzymes, proBNP 1390, INR 1.28. ABG 7.41/36/88 on 6 L/m. Urinalysis 5-10 RBCs/3-5 WBCs. EKG revealed atrial fibrillation with a rapid ventricular response. Chest x- ray was negative. CT of the chest, abdomen and pelvis revealed diverticulitis of the proximal sigmoid colon in the left lower quadrant, an obstructive 1.8 cm proximal right ureteral calculus with associated right hydronephrosis and large nonobstructive right-sided intrarenal calculi and streaky and patchy consolidation in the right lower lobe and posterior right upper lobe. He was begun on Ceftriaxone and Flagyl and given 1 dose of Vancomycin. He is unable to provide a reliable history but at present denies any pain. He does note a cough and shortness of breath. He denies any GI or symptoms. Allergies/Medications Allergies: Coded Allergies: Penicillins (Intermediate, HIVES/BAD RASH 09/04/15) Home Med List: Atorvastatin Calcium (Lipitor) 20 MG TABLET 1 TAB PO QPM CHOLESTEROL ( Reported) Citalopram Hydrobromide (Celexa) 10 MG TABLET 0.5 TAB PO DAILY MENTAL HEALTH (Reported) Docusate Sodium 100 MG CAPSULE 1 CAP PO DAILY CONSTIPATION (Reported) Donepezil HCl (Aricept) 10 MG TABLET 1 TAB PO QPM DEMENTIA (Reported) Finasteride (Proscar) 5 MG TABLET 1 TAB PO DAILY PROSTATE (Reported) Gabapentin (Neurontin) 300 MG CAPSULE 1 CAP PO QPM PAIN (Reported) Ipratropium/Albuterol Sulfate (Iprat-Albut 0.5-3(2.5) MG/3 Ml) 0.5 MG-3 MG (2.5 MG BASE)/3 ML AMPUL.NEB 1 UNIT PO BID SHORTNESS OF BREATH (Reported) Lansoprazole (Prevacid) 30 MG CAPSULE.DR 1 CAP PO DAILY GERD (Reported) Melatonin 3 MG TABLET 1 TAB PO QPM SLEEP (Reported) Mirtazapine 30 MG TABLET 1 TAB PO QPM SLEEP (Reported) Multivitamin (One Daily Multivitamin) 1 EACH TABLET 1 TAB PO DAILY VITAMIN SUPPORT (Reported) Polyvinyl Alcohol (Artificial Tears) 1.4 % DROPS 3 DROP OS BID DRY EYE ( Reported) Sennosides (Senna) 8.6 MG TABLET 1 TAB PO BID CONSTIPATION (Reported) Past History Travel History Traveled to [place] past 21 day No Medical History Neurological: dementia EENT: NONE Cardiovascular: diastolic CHF, hypertension, hyperlipidemia Respiratory: COPD, obstructive sleep apnea Gastrointestinal: GERD, hiatal hernia Hepatic: NONE Renal: benign prost hyperplasia, nephrolithiasis Musculoskeletal: gout, osteoarthritis Psychiatric: depression, insomnia Endocrine: NONE Blood Disorders: DVT Cancer(s): NONE DENTAL CERAMIST/Reproductive: NONE History of MRSA: No History of VRE: No History of CDIFF: No Isolation History: Standard Pneumonia Vaccine: 06/14/06 Surgical History Surgical History: stent for kidney stone, neck surgery Family History Relations & Conditions If Any: No Known Family History. Psychosocial History Where Do You Live? Care Home Facility Primary Language: Icelandic Smoking Status: Former Smoker ETOH Use: occasional use Illicit Drug Use: denies illicit drug use Functional Ability Ambulation: wheel chair Review of Systems Comments U unobtainable nobtainable Exam & Diagnostic Data Last 24 Hrs of Vital Signs/I&O Vital Signs Date Time Temp Pulse Resp B/P B/P Pulse O2 O2 Flow FiO2 Mean Ox Delivery Rate 05/18 1449 98.2 84 24 115/60 94 Nasal Cannula 05/18 1343 Nasal 5.0L Cannula 05/18 1245 97.5 98 20 124/66 95 Nasal Cannula 05/18 1035 100.0 90 20 103/60 94 Nasal 6.0L Cannula 05/18 1000 97 Nasal 6.0L Cannula 05/18 0918 100.0 05/18 0834 100.5 05/18 0828 100.5 92 20 110/60 96 Nasal 6.0L Cannula 05/18 0735 99.5 90 20 95 Nasal 6.0L Cannula 05/18 0657 100.3 93 24 93/59 93 Nasal 6.0L Cannula 05/18 0512 99.0 102 24 97/56 93 Nasal 6.0L Cannula 05/18 0246 97.9 108 24 101/61 93 Nasal 6.0L Cannula 05/18 0143 91 Nasal 5.0L Cannula 05/18 0108 89 Nasal 3.0L Cannula 05/18 0053 98.5 121 22 99/55 86 Nasal 3.0L Cannula Intake & Output 05/18 1600 05/18 0800 05/18 0000 Intake Total 100 Output Total 80 Balance 20 Intake, IV 100 Intake, Oral 0 Output, Urine 80 Patient 220 lb Weight Weight Estimated Measurement Method Physical Exam Other Physical Findings: MAXIMUM TEMPERATURE 100.5. He is awake and alert in mild respiratory distress. Skin reveals no rash. HEENT negative. Neck is supple with no adenopathy. Lungs diffuse crackles and rhonchi. Heart irregular rhythm with no murmur. Abdomen is soft, tender on palpation of the left lower quadrant, with no guarding or rebound, with positive bowel sounds. Back no CVA tenderness. Extremities bilateral lower extremity edema, right greater than left. Neuro is without focality. Last 24 Hours of Lab Results: Laboratory Tests 05/18 05/18 05/18 05/18 1344 1344 0928 0705 Chemistry Lactic Acid (0.7 - 2.1 mmol/L) 2.4 H 2.9 H Troponin I (<0.11 ng/ml) 0.05 Urines Urine Color (YEL,AMB,STR) YEL Urine Clarity (CLEAR) CLEAR Urine pH (5.0 - 8.0) 6.0 Ur Specific [place] (1.001 - 1.035) 1.025 Urine Protein (NEG,<30 MG/DL) 100 H Urine Ketones (NEG) TRACE H Urine Nitrite (NEG) NEG Urine Bilirubin (NEG) NEG Urine Urobilinogen (0.1 - 1.0 EU/dl) 0.2 Ur Leukocyte Esterase (NEG) NEG Ur Microscopic SEDIMENT EXAMINED Urine RBC (0 - 5 /HPF) 5-10 H Urine WBC (0 - 2 /HPF) 3-5 H Urine Bacteria (NEG/NONE) FEW H Urine Hemoglobin (NEG) MOD H Urine Glucose (N MG/DL) NEG 05/18 05/18 05/18 0700 0633 0633 Chemistry Sodium (137 - 145 mmol/L) 142 Potassium (3.5 - 5.1 mmol/L) 4.2 Chloride (98 - 107 mmol/L) 104 Carbon Dioxide (22 - 30 mmol/L) 27 Anion Gap (5 - 16) 11 BUN (9 - 20 mg/dL) 19 Creatinine (0.7 - 1.2 mg/dL) 1.1 Estimated GFR (>60 ml/min) > 60 BUN/Creatinine Ratio (7 - 25 %) 17.3 Lactic Acid (0.7 - 2.1 mmol/L) 3.0 H Troponin I (<0.11 ng/ml) Cancelled 0.07 Hematology CBC w Diff MAN DIFF ORDERED WBC (4.8 - 10.8 /CUMM) 12.3 H RBC (4.70 - 6.10 /CUMM) 3.88 L Hgb (14.0 - 18.0 G/DL) 11.0 L Hct (42 - 52 %) 33.5 L MCV (80.0 - 94.0 FL) 86.4 MCH (27.0 - 31.0 PG) 28.5 RDW (11.5 - 14.5 %) 16.3 H Plt Count (130 - 400 /CUMM) 176 MPV (7.4 - 10.4 FL) 8.6 Gran % (42.2 - 75.2 %) 82.7 H Lymphocytes % (20.5 - 51.1 %) 7.7 L Monocytes % (1.7 - 9.3 %) 9.3 Eosinophils % (0 - 5 %) 0.1 Basophils % (0.0 - 2.0 %) 0.2 Absolute Granulocytes (1.4 - 6.5 /CUMM) 10.2 H Segmented Neutrophils (42.2 - 75.2 %) 59 Band Neutrophils (0.0 - 5.0 %) 20 H Absolute Lymphocytes (1.2 - 3.4 /CUMM) 0.9 L Lymphocytes (20.5 - 51.1 %) 8 L Monocytes (1.7 - 9.3 %) 12 H Absolute Monocytes (0.10 - 0.60 /CUMM) 1.1 H Eosinophils (0 - 5.0 %) 1 Absolute Eosinophils (0.0 - 0.7 /CUMM) 0 Absolute Basophils (0.0 - 0.2 /CUMM) 0 Platelet Estimate (ADEQUATE) ADEQUATE Normochromic RBCs VERIFIED Anisocytosis 1+ Ovalocytes 1+ Elliptocytes FEW PUBS MCHC (33.0 - 37.0 G/DL) 32.9 L 05/18 05/18 05/18 05/18 0530 0334 0333 0113 Blood Gas pH (7.35 - 7.45 PH) 7.41 pCO2 (35 - 45 TORR) 36 pO2 (80 - 100 TORR) 88 HCO3 (21 - 28 MEQ/L) 23 ABG O2 Sat (Measured) (>96.0 %) 96.0 P-50 (Temp Corrected) N Carboxyhemoglobin (1.5 - 5.0 %) 0.3 L O2 Concentration % 6L O2 Delivery Method N/C Chemistry Sodium Cancelled Potassium Cancelled Chloride Cancelled Carbon Dioxide Cancelled Anion Gap Cancelled BUN Cancelled Creatinine Cancelled BUN/Creatinine Ratio Cancelled Lactic Acid Cancelled Hematology CBC w Diff Cancelled WBC Cancelled RBC Cancelled Hgb Cancelled Hct Cancelled MCV Cancelled MCH Cancelled RDW Cancelled Plt Count Cancelled MPV Cancelled PUBS MCHC Cancelled Miscellaneous Phlebotomy Draw Site RIGHT RADIAL Urines Urine Color Cancelled Urine Clarity Cancelled Urine pH Cancelled Ur Specific [place] Cancelled Urine Protein Cancelled Urine Ketones Cancelled Urine Nitrite Cancelled Urine Bilirubin Cancelled Urine Urobilinogen Cancelled Ur Leukocyte Esterase Cancelled Ur Microscopic Cancelled Urine Hemoglobin Cancelled Urine Glucose Cancelled 05/18 010 Chemistry Sodium (137 - 145 mmol/L) 141 Potassium (3.5 - 5.1 mmol/L) 3.9 Chloride (98 - 107 mmol/L) 104 Carbon Dioxide (22 - 30 mmol/L) 24 Anion Gap (5 - 16) 13 BUN (9 - 20 mg/dL) 16 Creatinine (0.7 - 1.2 mg/dL) 0.9 Estimated GFR (>60 ml/min) > 60 BUN/Creatinine Ratio (7 - 25 %) 17.8 Glucose (65 - 99 mg/dL) 159 H Lactic Acid (0.7 - 2.1 mmol/L) 2.3 H Calcium (8.4 - 10.2 mg/dL) 9.0 Total Bilirubin (0.2 - 1.3 mg/dL) 1.0 AST (17 - 59 U/L) 28 ALT (21 - 72 U/L) 37 Alkaline Phosphatase (< 127 U/L) 101 Troponin I (<0.11 ng/ml) 0.02 Wmw-[id number]-Ljianzujokp Pept (<125 pg/mL) 1390 H Total Protein (6.3 - 8.2 g/dL) 6.6 Albumin (3.5 - 5.0 g/dL) 3.7 Globulin (1.9 - 4.2 gm/dL) 2.9 Albumin/Globulin Ratio (1.1 - 2.2 %) 1.3 Coagulation PT (9.4 - 12.5 SEC) 13.4 H INR (0.90 - 1.17) 1.28 H Hematology CBC w Diff MAN DIFF ORDERED WBC (4.8 - 10.8 /CUMM) 9.6 RBC (4.70 - 6.10 /CUMM) 4.30 L Hgb (14.0 - 18.0 G/DL) 12.2 L Hct (42 - 52 %) 37.2 L MCV (80.0 - 94.0 FL) 86.7 MCH (27.0 - 31.0 PG) 28.3 RDW (11.5 - 14.5 %) 16.5 H Plt Count (130 - 400 /CUMM) 191 MPV (7.4 - 10.4 FL) 8.0 Gran % (42.2 - 75.2 %) 84.4 H Lymphocytes % (20.5 - 51.1 %) 8.4 L Monocytes % (1.7 - 9.3 %) 6.3 Eosinophils % (0 - 5 %) 0.6 Basophils % (0.0 - 2.0 %) 0.3 Absolute Granulocytes (1.4 - 6.5 /CUMM) 8.1 H Segmented Neutrophils (42.2 - 75.2 %) 80 H Band Neutrophils (0.0 - 5.0 %) 3 Absolute Lymphocytes (1.2 - 3.4 /CUMM) 0.8 L Lymphocytes (20.5 - 51.1 %) 9 L Monocytes (1.7 - 9.3 %) 8 Absolute Monocytes (0.10 - 0.60 /CUMM) 0.6 Absolute Eosinophils (0.0 - 0.7 /CUMM) 0.1 Absolute Basophils (0.0 - 0.2 /CUMM) 0 Platelet Estimate (ADEQUATE) ADEQUATE Polychromasia 1+ Hypochromic-Microcytic 1+ Poikilocytosis 1+ Ovalocytes 1+ PUBS MCHC (33.0 - 37.0 G/DL) 32.7 L Other Body Source Fld Total RBCs Counted (%) 100 Last 24 Hours of Jack Results: Blood cultures May 18 pending Urine strep pneumo antigen and Legionella antigen May 18 negative Urine culture May 18 pending Diagnostic Data Recent Imaging Findings: Chest x-ray negative. CT of the chest, abdomen and pelvis revealed diverticulitis of the proximal sigmoid colon in the left lower quadrant, an obstructive 1.8 cm proximal right ureteral calculus with associated right hydronephrosis and large nonobstructive right-sided intrarenal calculi and streaky and patchy consolidation in the right lower lobe and posterior right upper lobe. Assessment/Plan Assessment/Plan Impression: This is an 87-year-old man, long-term resident, with a history of dementia, COPD, maintained on 2 L of oxygen, obstructive sleep apnea, not on CPAP, diastolic CHF, chronic DVT, status post IVC filter, not on anticoagulation because of an intracranial bleed, and nephrolithiasis admitted early this morning with a one-week history of lethargy and weakness and more acute onset of a productive cough and fever, found to have a low-grade fever, a mild leukocytosis with bandemia, atrial fibrillation with a CT of the chest, abdomen and pelvis revealing diverticulitis of the proximal sigmoid colon in the left lower quadrant, an obstructive 1.8 cm proximal right ureteral calculus with associated right hydronephrosis and streaky and patchy consolidation in the right lower lobe and posterior right upper lobe. His clinical picture is consistent with sepsis, with several possible sources including sigmoid diverticulitis, multilobar pneumonia and the urinary tract. He can be covered broadly initially pending cultures and further evaluation, with his antibiotics eventually narrowed based on these results. Suggestion: 1. Attempt to obtain a sputum culture 2. Would obtain a nares screen for MRSA 3. Follow-up recent cultures 4. Consider Urology evaluation 5. Discontinue Ceftriaxone 6. Begin Ceftazidime 1 g IV every 8 hours 7. Continue Vancomycin 1500 mg IV every 24 hours and Flagyl 500 mg IV every 8 hours Consult Acknowledgment - Thank you for your consult request.
[2017-05-18 16:43] VITALS: BP 115/60
--- NOTE | 2017-05-18 18:46 | PN- Att Addend ---
Attending Addendum Attending Brief Note Pt seen and examined at bedside. d/w pt and pts family at bedside the care plan. Multiple issues- Acute sigmoid diverticulitis - started on ceftazidime and flagyl. cont to monitor Rt side Pneumonia- pt is from a facility. started on vanco and ceftazidime. f/u on ID recommendations and cultures. Acute rt hydronephrosis and rt side obstructive ureteral calculus- urology consult placed. Sepsis- cont iv fluids and repeat lactic acid.
[2017-05-19 01:01] VITALS: BP 138/74
[2017-05-19 08:14] LABS: ABSOLUTE BASOPHIL COUNT 0 /CUMM (0.0-0.2); ABSOLUTE EOSINOPHIL COUNT 0.3 /CUMM (0.0-0.7); ABSOLUTE GRANULOCYTE CT 5.7 /CUMM (1.4-6.5); ABSOLUTE LYMPH COUNT 1.3 /CUMM (1.2-3.4); ABSOLUTE MONOCYTE COUNT 0.9 /CUMM (0.10-0.60); BASOPHIL % 0.1 % (0.0-2.0); EOSINOPHIL % 3.8 % (0-5); GRANULOCYTE % 68.9 % (42.2-75.2); HEMATOCRIT 33.8 % (42-52); MEAN CORPUSCULAR HGB 28.8 PG (27.0-31.0); MEAN CORPUSCULAR HGB CONC 33.2 G/DL (33.0-37.0); MEAN CORPUSCULAR VOLUME 86.7 FL (80.0-94.0); MEAN PLATELET VOLUME 8.7 FL (7.4-10.4); PLATELET COUNT 158 /CUMM (130-400); RBC DISTRIBUTION WIDTH 16.8 % (11.5-14.5); WHITE BLOOD CELL COUNT 8.2 /CUMM (4.8-10.8)
--- NOTE | 2017-05-19 08:51 | ECHOCARDIOGRAM REPORT ---
SHEILA NOLASCO Age: 87 : 1930 Gender: M Exam Date: 05/18/2017 08:51 Exam Location: ER Ht (in): 67 Wt (lb): 185 BSA: 2.01 BP: 93 / 54 Ordering Physician: Kanwal Flanagan MD Referring Physician: Kanwal Flanagan MD Technologist: Saurabh Zimmer [facility] Room Number: 1 Indications: CARDIOMYOPATHY Rhythm: Sinus Technical Quality: poor/technically limited FINDINGS Left Ventricle Small and possibly underfilled left ventricle. Normal systolic function with apical akinesis based on limited views. Diastolic filling pattern is consistent wtih impaired LV relaxation. The ejection fraction is visually estimated at 55%. Right Ventricle The right ventricle is normal is poorly visualized. Right Atrium The right atrium is normal in size. Left Atrium The left atrium is normal in size. The interatrial septum is intact. Mitral Valve The mitral valve is normal in structure and function. There is no mitral regurgitation. Aortic Valve Structurally normal aortic valve without significant sclerosis or stenosis. There is no aortic regurgitation. Tricuspid Valve The tricuspid valve is normal in structure and function. There is trace tricuspid regurgitation. Pulmonary artery systolic pressure is normal. Pulmonic Valve The pulmonic valve is not visualized. There is no detected pulmonic regurgitation. Pericardium Normal pericardium without effusion. No pleural effusion. Great Vessels Normal aortic root dimension. The aortic arch and great vessels are not seen. CONCLUSIONS 1. Technically limited study. Consider a ANNA if clinically relevent. 2. Small and possibly underfilled left ventricle. 3. Normal EF of 55% with apical akinesis based on limited views. Impaired LV relaxation is noted. 4. Trace tricuspid regurgitation. Thai Banerjee M.D. (Electronically Signed) Final Date: 19 May 2017 08:50 MEASUREMENTS (Male / Female) Normal Values 2D ECHO LVOT Diameter 2.1 cm Aortic Root Diameter 3.7 cm Ascending Aorta Diameter 3.3 cm DOPPLER AV Peak Velocity 181.0 cm/s AV Peak Gradient 13.1 mmHg AV Mean Velocity 111.0 cm/s AV Mean Gradient 6.0 mmHg AV Velocity Time Integral 27.1 cm LVOT Peak Velocity 91.7 cm/s LVOT Peak Gradient 3.4 mmHg LVOT Mean Velocity 62.1 cm/s LVOT Mean Gradient 2.0 mmHg LVOT Velocity Time Integral 17.9 cm LVOT Stroke Volume 62.0 cm AV Area Cont Eq vti 2.3 cm AV Area Cont Eq pk 1.8 cm Mitral E Point Velocity 86.4 cm/s Mitral A Point Velocity 123.0 cm/s Mitral E to A Ratio 0.7 MV Deceleration Time 415.0 ms TR Peak Velocity 163.0 cm/s TR Peak Gradient 10.6 mmHg Right Atrial Pressure 5.0 mmHg Pulmonary Artery Systolic Pressu 15.6 mmHg Right Ventricular Systolic Press 15.6 mmHg PV Peak Velocity 92.4 cm/s PV Peak Gradient 3.4 mmHg PV Mean Velocity 63.6 cm/s PV Mean Gradient 2.0 mmHg PV Velocity Time Integral 15.2 cm LV E' Lateral Velocity 7.5 cm/s Mitral E to LV E' Lateral Ratio 11.5 LV E' Septal Velocity 7.6 cm/s Mitral E to LV E' Septal Ratio 11.4
--- NOTE | 2017-05-19 08:54 | PN- Housestaff ---
Ever SANTIAGO,Cassie 05/19/17 0853: Subjective Follow-up For: Pneumonia Acute diverticulitis Tele-Events Since Last Visit: Atrial fibrillation Subjective: Seen and examined. Patient resting comfortably offers no complaints. Review of Systems Constitutional: Reports: see HPI. Objective Last 24 Hrs of Vital Signs/I&O Vital Signs Date Time Temp Pulse Resp B/P B/P Pulse O2 O2 Flow FiO2 Mean Ox Delivery Rate 05/19 1447 98.3 83 32 120/70 96 Nasal 3.0L Cannula 05/19 1055 97 Nasal 4.0L Cannula 05/19 0800 95 Nasal 4.0L Cannula 05/19 0448 96 Nasal 4.0L Cannula 05/19 0110 98.3 84 05/19 0103 Nasal 4.0L Cannula 05/19 0101 138/74 05/18 2219 98.5 84 18 116/61 94 Nasal 4.0L Cannula 05/18 1935 98 Nasal 5.0L Cannula Intake & Output 05/19 1600 05/19 0800 05/19 0000 Intake Total 1190 650 Output Total Balance 1190 650 Intake, IV 950 650 Intake, Oral 240 Patient 190 lb Weight Weight Reported by Patient Measurement Method Physical Exam General Appearance: Alert, Oriented X3, Cooperative Cardiovascular: irregular Abdomen: Normal Bowel Sounds Current Medications: Current Medications Sig/Pierre Start time Last Medication Dose Route Stop Time Status Admin Acetaminophen 650 MG Q6PRN PRN 05/18 0345 AC 05/18 PO 0834 Acetaminophen 1,000 MG Q6PRN PRN 05/18 0345 AC 05/19 IV 1502 Albuterol Sulfate 3 ML BID 05/18 1400 AC 05/19 INH 1054 Aspirin 81 MG DAILY 05/18 1000 AC 05/19 PO 0902 Atorvastatin Calcium 20 MG AT BEDTIME 05/18 2200 AC 05/18 PO 2305 Ceftazidime 0 .STK-MED ONE 05/18 1744 DC .ROUTE Ceftazidime 1,000 MG IQ8 05/18 1730 AC 05/19 IV 1610 Ceftriaxone Sodium 1,000 MG DAILY 05/19 1000 CAN IV Donepezil HCl 10 MG AT BEDTIME 05/18 2200 AC 05/18 PO 2305 Enoxaparin Sodium 40 MG DAILY 05/18 1000 AC 05/19 SC 0904 Finasteride 5 MG DAILY 05/18 1000 AC 05/19 PO 0902 Gabapentin 300 MG AT BEDTIME 05/18 2200 AC 05/18 PO 2305 Metronidazole 500 MG Q8H 05/18 0500 AC 05/19 N/A 1 UNIT IV 1242 Omeprazole 20 MG DAILY AC 05/18 0700 AC 05/19 PO 0638 Sodium Chloride 1,000 ML Q8H 05/18 1045 AC 05/19 IV 1611 Vancomycin HCl 1,500 MG Q24H 05/19 1000 AC 05/19 Sodium Chloride 250 ML IV 1028 Last 24 Hrs of Lab/Jack Results Last 24 Hrs of Labs/Mics: Laboratory Tests 05/19/17 0657: Anion Gap 10, Estimated GFR > 60, BUN/Creatinine Ratio 20.0, CBC w Diff NO MAN DIFF REQ, RBC 3.90 L, MCV 86.7, MCH 28.8, RDW 16.8 H, MPV 8.7, Gran % 68.9, Lymphocytes % 16.0 L, Monocytes % 11.2 H, Eosinophils % 3.8, Basophils % 0.1, Absolute Granulocytes 5.7, Absolute Lymphocytes 1.3, Absolute Monocytes 0.9 H, Absolute Eosinophils 0.3, Absolute Basophils 0, PUBS MCHC 33.2 05/18/17 2139: Lactic Acid 1.3 Microbiology 05/18 1710 HEAD/NECK: Surveillance Culture - CAN Cancelled: SPECIMEN NOT RECEIVED IN LABORATORY Assessment/Plan Assessment: Patient is an 85-year-old male with a past medical history of COPD on 2 L, diastolic CHF, chronic DVT status post IVC not on anticoagulation due to intracranial bleed, hypertension, hyperlipidemia, that came in from [facility] for productive cough and fever for the past 2 days. His temperature here was found to be 101.0 and O2 sats are 88% on 2 L of oxygen. He denied chest pain, shortness of breath, palpitations, nausea vomiting, diarrhea constipation, abdominal pain, bloody bowel movements, urinary incontinence, burning, hematuria. Patient's WBC count was found to be 9.6 on arrival and 13 later in the day. Hemoglobin was 12.2, creatinine 9, lactic acid was found to be 2.3 at admission and 3.4 later in the day which fell to 2.4 and then hay to 2. 6 in the evening. He was also found to have proBNP of 1390 and left shift. Chest x-ray showed no focal consolidation CT abdomen and pelvis showed acute diverticulitis of the proximal sigmoid colon in the lower left quadrant with no abscess or pneumoperitoneum. Additionally ureteral calculus with hydronephrosis is seen. CT chest showed stable large hiatal hernia containing the entire stomach and streaky and patchy consolidation in the right lower lobe and posterior right upper lobe training representative of atelectasis or pneumonia. -- Patient remains afebrile with white scar renal cell count trending down #Acute sigmoid diverticulitis * Continue ceftazidime and flagyl. # Rt side Pneumonia * Continue vanco and ceftazidime #Urology was consulted for ureteral calculus with hydronephrosis. * Recommendation pending #Rule out PE To rule out PE setting of decreased oxygenation An IVC filter is not 100% effective and a PE may lead to atrial fibrillation with decreased oxygenation * Follow-up d-dimer and lower extremity dopplers * confirmation of a PE would not alter treatment of this disorder since he cannot tolerate anticoagulation, it may prevent diagnostic studies and treatment of other causes of hypoxia. Problem List: 1. COPD Pain Ratin Pain Location: n/a Pain Goal: Pain 4 or less Pain Plan: prn Tomorrow's Labs & Rationales: as ordered Raul Padilla 05/19/17 1333: Attending MD Review Statement Attending Statement Attending MD Statement: examined this patient, discuss w/resident/PA/HOME HEALTH CAREGIVER, agreed w/resident/PA/HOME HEALTH CAREGIVER, discussed with family, reviewed EMR data (avail), discussed with nursing, discussed with case mgmt, reviewed images, amended to note Attending Assessment/Plan: Pt seen and examined at bedside. d/w pt and pts family at bedside the care plan. Acute sigmoid diverticulitis - started on ceftazidime and flagyl. cont to monitor Rt side Pneumonia- pt is from a facility. started on vanco and ceftazidime. f/u on ID recommendations and cultures. Acute rt hydronephrosis and rt side obstructive ureteral calculus- urology consult placed. Sepsis- cont iv fluids and antibiotics as per ID. Follow cultures and taper abx as per C/S. wound consutl for sacral wounds, rotuine nursing care, sacral ulcer prevention protocol.
--- NOTE | 2017-05-19 11:32 | Cons- Cardiology ---
General Information and HPI Consulting Request Date of Consult: 05/19/17 Requested By: Humberto SANTIAGO,Siobhan Jacinto History of Present Illness: This patient is an 87 year old male with history of hypertension, dyslipidemia and diastolic heart failure. He also carries a history of dementia, COPD and DVT status post IVC filter. He is not on chronic anticoagulation due to prior intracranial bleeding. This patient was sent to [facility] for evaluation of fever and productive cough. He is weak and lethargic and demonstrated a decreased oxygen saturation on 2L of supplemental oxygen. The patient himself does not know why he is here and admits to no complaints of chest discomfort, shortness of breath, lightheadedness or palpitations. His memory is extremely poor. At baseline, this patient has been wheelchair bound for about two years. He is noted to be in atrial fibrillation of unknown duration with slightly increased heart rate. Hospital evaluation has disclosed evidence of infection with impending sepsis. The source may be a sigmoid diverticulitis or pneumonia both of which have been discovered during this admission. The patient also has a right hydronephrosis. Allergies/Medications Allergies: Coded Allergies: Penicillins (Intermediate, HIVES/BAD RASH 09/04/15) Home Med List: Atorvastatin Calcium (Lipitor) 20 MG TABLET 1 TAB PO QPM CHOLESTEROL ( Reported) Citalopram Hydrobromide (Celexa) 10 MG TABLET 0.5 TAB PO DAILY MENTAL HEALTH (Reported) Docusate Sodium 100 MG CAPSULE 1 CAP PO DAILY CONSTIPATION (Reported) Donepezil HCl (Aricept) 10 MG TABLET 1 TAB PO QPM DEMENTIA (Reported) Finasteride (Proscar) 5 MG TABLET 1 TAB PO DAILY PROSTATE (Reported) Gabapentin (Neurontin) 300 MG CAPSULE 1 CAP PO QPM PAIN (Reported) Ipratropium/Albuterol Sulfate (Iprat-Albut 0.5-3(2.5) MG/3 Ml) 0.5 MG-3 MG (2.5 MG BASE)/3 ML AMPUL.NEB 1 UNIT PO BID SHORTNESS OF BREATH (Reported) Lansoprazole (Prevacid) 30 MG CAPSULE.DR 1 CAP PO DAILY GERD (Reported) Melatonin 3 MG TABLET 1 TAB PO QPM SLEEP (Reported) Mirtazapine 30 MG TABLET 1 TAB PO QPM SLEEP (Reported) Multivitamin (One Daily Multivitamin) 1 EACH TABLET 1 TAB PO DAILY VITAMIN SUPPORT (Reported) Polyvinyl Alcohol (Artificial Tears) 1.4 % DROPS 3 DROP OS BID DRY EYE ( Reported) Sennosides (Senna) 8.6 MG TABLET 1 TAB PO BID CONSTIPATION (Reported) Review of Systems Review of Systems: A review of systems is unobtainable. 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 Psychosocial History [facility] You [facility] Primary Language: Vincentian Smoking Status: Former Smoker ETOH Use: occasional use Illicit Drug Use: denies illicit drug use Functional Ability Ambulation: wheel chair Exam & Diagnostic Data Vital Signs and I&O Vital Signs Date Time Temp Pulse Resp B/P B/P Pulse O2 O2 Flow FiO2 Mean Ox Delivery Rate 05/19 1055 97 Nasal 4.0L Cannula 05/19 0448 96 Nasal 4.0L Cannula 05/19 0110 98.3 84 05/19 0103 Nasal 4.0L Cannula 05/19 0101 138/74 05/18 2219 98.5 84 18 116/61 94 Nasal 4.0L Cannula 05/18 1935 98 Nasal 5.0L Cannula 05/18 1643 95 Nasal 5.0L Cannula 05/18 1643 98.2 84 24 115/60 94 Nasal 5.0L Cannula 05/18 1449 98.2 84 24 115/60 94 Nasal Cannula 05/18 1343 Nasal 5.0L Cannula 05/18 1245 97.5 98 20 124/66 95 Nasal Cannula Intake & Output 05/19 1600 05/19 0800 05/19 0000 05/18 1600 05/18 0800 05/18 0000 Intake Total 650 980 100 Output Total 80 Balance 650 980 20 Intake, IV 650 500 100 Intake, Oral 480 0 Output, Urine 80 Patient 190 lb 220 lb Weight Weight Reported by Patient Estimated Measurement Method Physical Exam: General: WD/obese male in NAD; awake and responsive with decreased memory HEENT: NC/AT, PERRL, EOMI Neck: no JVD, no carotid bruit Heart: irregularly irregular without murmur; bowel sounds heard in chest Lungs: decreased air movement at bases bilaterally with upper airway congestion Abdomen: soft, obese, NT, +ve bowel sounds Extremities: no edema Assessment/Plan Assessment/Plan * This patient has atrial fibrillation of unkown duration. His heart rate is reasonably well controlled without medications for rate control which is almost certainly an indication of conduction system disease. An old ECG from 2016 shows a long first degree AV block that is consistent with this thought. Unfortunately , this patient is not believed to be a candidate for chronic anticoagulation due to a prior intracerebral bleeding issue. Aspirin is reasonable although it is unlikely to be helpful to prevent stroke. Please check his TSH and free T4. * Although this patient may well have pneumonia causing his decreased oxygenation upon admission, I would also consider a PE. An IVC filter is not 100 % effective and a PE may lead to atrial fibrillation with decreased oxygenation. Obtain a D-dimer and lower extremity dopplers. Although, confirmation of a PE would not alter treatment of this disorder since he cannot tolerate anticoagulation, it may prevent diagnostic studies and treatment of other causes of hypoxia. The patient appears to have very little in the way of a cough. I do not see evidence of decompensated CHF. Do not overdiurese since this patient already appears to be underfilled on his echocardiogram. Consult Acknowledgment - Thank you for your consult request.
[2017-05-19 14:47] VITALS: BP 120/70
[2017-05-19 22:30] VITALS: BP 150/74
[2017-05-20 06:30] VITALS: BP 148/78
[2017-05-20 07:52] LABS: ABSOLUTE BASOPHIL COUNT 0 /CUMM (0.0-0.2); ABSOLUTE EOSINOPHIL COUNT 0.4 /CUMM (0.0-0.7); ABSOLUTE GRANULOCYTE CT 3.9 /CUMM (1.4-6.5); ABSOLUTE LYMPH COUNT 1.4 /CUMM (1.2-3.4); ABSOLUTE MONOCYTE COUNT 0.8 /CUMM (0.10-0.60); BASOPHIL % 0.6 % (0.0-2.0); EOSINOPHIL % 5.8 % (0-5); GRANULOCYTE % 60.2 % (42.2-75.2); HEMATOCRIT 30.5 % (42-52); MEAN CORPUSCULAR HGB CONC 33.6 G/DL (33.0-37.0); MEAN CORPUSCULAR VOLUME 86.2 FL (80.0-94.0); MEAN PLATELET VOLUME 7.7 FL (7.4-10.4); PLATELET COUNT 180 /CUMM (130-400); RBC DISTRIBUTION WIDTH 16.9 % (11.5-14.5); RED BLOOD CELL CT 3.54 /CUMM (4.70-6.10); WHITE BLOOD CELL COUNT 6.4 /CUMM (4.8-10.8)
--- NOTE | 2017-05-20 09:39 | PN- Infect Dx ---
Subjective Subjective: Afebrile. He reports some shortness of breath and occasional cough, but no chest pain. He denies any abdominal pain. Objective Last 24 Hrs of Vital Signs/I&O Vital Signs Date Time Temp Pulse Resp B/P B/P Pulse O2 O2 Flow FiO2 Mean Ox Delivery Rate 05/20 0859 96 Nasal 3.0L Cannula 05/20 0630 97.8 63 20 148/78 95 05/19 2230 98.3 64 24 150/74 94 05/19 2025 Nasal 3.0L Cannula 05/19 1935 97 Nasal 4.0L Cannula 05/19 174 Nasal 4.0L Cannula 05/19 1447 98.3 83 32 120/70 96 Nasal 3.0L Cannula 05/19 1055 97 Nasal 4.0L Cannula Intake & Output 05/20 1600 05/20 0800 05/20 0000 Intake Total 400 425 Output Total Balance 400 425 Intake, IV 200 225 Intake, Oral 200 200 Physical Exam Other Physical Findings: He appears comfortable in no acute distress Lungs diffuse rhonchi and crackles Heart regular rhythm with no murmur Abdomen is soft, tender on palpation over the left lower quadrant and, to a lesser extent, the right lower quadrant, with no guarding or rebound, positive bowel sounds Back no CVA tenderness Extremities no cyanosis, clubbing or edema Results Last 24 Hours of Lab Results: Laboratory Tests 05/20 05/19 05/19 0705 2310 2240 Chemistry Sodium (137 - 145 mmol/L) 145 Potassium (3.5 - 5.1 mmol/L) 3.7 Chloride (98 - 107 mmol/L) 110 H Carbon Dioxide (22 - 30 mmol/L) 25 Anion Gap (5 - 16) 10 BUN (9 - 20 mg/dL) 17 Creatinine (0.7 - 1.2 mg/dL) 0.8 Estimated GFR (>60 ml/min) > 60 BUN/Creatinine Ratio (7 - 25 %) 21.3 TSH (0.270 - 4.200 uIU/mL) 4.110 Free T4 (0.85 - 1.93 ng/dL) 1.52 Coagulation D-Dimer High Sensitivty (0 - 243 ng/ml) 1025 H Hematology CBC w Diff NO MAN DIFF REQ WBC (4.8 - 10.8 /CUMM) 6.4 RBC (4.70 - 6.10 /CUMM) 3.54 L Hgb (14.0 - 18.0 G/DL) 10.3 L Hct (42 - 52 %) 30.5 L MCV (80.0 - 94.0 FL) 86.2 MCH (27.0 - 31.0 PG) 29.0 RDW (11.5 - 14.5 %) 16.9 H Plt Count (130 - 400 /CUMM) 180 MPV (7.4 - 10.4 FL) 7.7 Gran % (42.2 - 75.2 %) 60.2 Lymphocytes % (20.5 - 51.1 %) 21.5 Monocytes % (1.7 - 9.3 %) 11.9 H Eosinophils % (0 - 5 %) 5.8 H Basophils % (0.0 - 2.0 %) 0.6 Absolute Granulocytes (1.4 - 6.5 /CUMM) 3.9 Absolute Lymphocytes (1.2 - 3.4 /CUMM) 1.4 Absolute Monocytes (0.10 - 0.60 /CUMM) 0.8 H Absolute Eosinophils (0.0 - 0.7 /CUMM) 0.4 Absolute Basophils (0.0 - 0.2 /CUMM) 0 PUBS MCHC (33.0 - 37.0 G/DL) 33.6 Last 24 Hours of Jack Results: Blood cultures May 18 negative Urine culture May 18 negative Rapid flu swab May 18 negative Assessment/Plan Impression: Improved with temperatures and white blood cell count now normal on Vancomycin, Flagyl and Ceftazidime for sigmoid diverticulitis and possible pneumonia with cultures negative. His CT scan also demonstrated a right sided obstructive uropathy, which will warrant Urology evaluation. Suggestion: 1. Urology evaluation in the a.m. 2. Discontinue Vancomycin and Ceftazidime 3. Begin Ceftriaxone 1 g IV every 24 hours 4. Continue Flagyl
--- NOTE | 2017-05-20 11:01 | PN- Cardiology ---
Subjective Subjective: * Mild shortness of breath. * Patient converted to a sinus rhythm with first degree AV block. * No evidence for a PE on his chest CT Objective Vital Signs and I&Os Vital Signs Date Time Temp Pulse Resp B/P B/P Pulse O2 O2 Flow FiO2 Mean Ox Delivery Rate 05/20 0859 96 Nasal 3.0L Cannula 05/20 0630 97.8 63 20 148/78 95 05/19 2230 98.3 64 24 150/74 94 05/19 2025 Nasal 3.0L Cannula 05/19 1935 97 Nasal 4.0L Cannula 05/19 174 Nasal 4.0L Cannula 05/19 1447 98.3 83 32 120/70 96 Nasal 3.0L Cannula 05/19 1055 97 Nasal 4.0L Cannula Intake & Output 05/20 1600 05/20 0805/20 0000 05/19 1600 05/19 0800 05/19 0000 Intake Total 632 740 7611 650 Output Total Balance 352 117 5026 650 Intake, IV 200 225 950 650 Intake, Oral 200 200 240 Patient 190 lb Weight Weight Reported by Patient Measurement Method Physical Exam: General: WD/obese male in NAD; awake and responsive with decreased memory HEENT: NC/AT, PERRL, EOMI Neck: no JVD, no carotid bruit Heart: RRR without murmur; bowel sounds heard in chest Lungs: decreased air movement at bases bilaterally with upper airway congestion and diffuse crackles Abdomen: soft, obese, NT, +ve bowel sounds Extremities: no edema Assessment/Plan Assessment/Plan * This patient presented with atrial fibrillation of unkown duration. His heart rate was reasonably well controlled without medications which is indicative of conduction system disease. He is now in a sinus rhythm. Begin Multaq 400mg BID to maintain a sinus rhythm and avoid the need for chronic anticoagulation. If he becomes bradycardic then Aricept can be stopped. TFT's have been normal. Unfortunately, this patient is not believed to be a candidate for chronic anticoagulation due to a prior intracerebral bleeding issue. Aspirin is reasonable although it is unlikely to be helpful to prevent stroke. * Although this patient may well have pneumonia causing his decreased oxygenation upon admission, I would also consider a PE. An IVC filter is not 100 % effective and a PE may lead to atrial fibrillation with decreased oxygenation. His chest CT was negative for any central pulmonary embolism but his D-dimer is quite high. Obtain a LE ultrasound. The patient appears to have very little in the way of a cough. I do not see evidence of decompensated CHF. Do not overdiurese since this patient already appears to be underfilled on his echocardiogram. Continue telemetry? Yes
--- NOTE | 2017-05-20 11:21 | PN- Housestaff ---
See Addendum Gold SANTIAGO,Radha 05/20/17 1121: Subjective Follow-up For: Pneumonia New onset A. fib with RVR Reticulitis Ureteral calculus Chronic and new acute DVTs Subjective: Patient was seen and examined. Patient notes no complaints. He denies any chest pain, shortness of breath, abdominal pain. Review of Systems Constitutional: Reports: no symptoms. Objective Last 24 Hrs of Vital Signs/I&O Vital Signs Date Time Temp Pulse Resp B/P B/P Pulse O2 O2 Flow FiO2 Mean Ox Delivery Rate 05/20 1600 Nasal 3.0L Cannula 05/20 1535 64 124/78 05/20 1450 98.7 64 36 124/78 98 Nasal 3.0L Cannula 05/20 0859 96 Nasal 3.0L Cannula 05/20 08 93 Nasal 3.0L Cannula 05/20 0630 97.8 63 20 148/78 95 05/19 2230 98.3 64 24 150/74 94 05/19 2026 Nasal 3.0L Cannula 05/19 1935 97 Nasal 4.0L Cannula 05/19 1747 Nasal 4.0L Cannula Intake & Output 05/20 1600 05/20 0800 05/20 0000 Intake Total 950 400 425 Output Total Balance 950 400 425 Intake, IV 750 200 225 Intake, Oral 200 200 200 Number 1 Bowel Movements Patient 195 lb Weight Weight Bed scale Measurement Method Physical Exam General Appearance: Alert, Oriented X3, Cooperative, No Acute Distress Skin: No Rashes, No Breakdown, No Significant Lesion Skin Temp/Moisture Exam: Warm/Dry HEENT: Atraumatic Cardiovascular: Normal S1, Normal S2, No Murmurs, Gallops Lungs: Clear to Auscultation Abdomen: Normal Bowel Sounds, Soft, No Tenderness Neurological: Normal Speech, Strength at 5/5 X4 Ext, Normal Tone, Sensation Intact, Cranial Nerves 3-12 NL, Reflexes 2+ Extremities: No Clubbing, No Cyanosis, No Edema, Normal Pulses, No Tenderness/ Swelling Current Medications: Current Medications Sig/Pierre Start time Last Medication Dose Route Stop Time Status Admin Acetaminophen 650 MG Q6PRN PRN 05/18 0345 AC 05/18 PO 0834 Acetaminophen 1,000 MG Q6PRN PRN 05/18 0345 AC 05/19 IV 1502 Albuterol Sulfate 3 ML BID 05/18 1400 AC 05/20 INH 0851 Aspirin 81 MG DAILY 05/18 1000 AC 05/20 PO 0845 Atorvastatin Calcium 20 MG AT BEDTIME 05/18 2200 AC 05/19 PO 2032 Ceftazidime 1,000 MG IQ8 05/18 1730 DC 05/20 IV 0844 Ceftriaxone Sodium 1,000 MG DAILY@1400 05/20 1400 AC 05/20 IV 1536 Donepezil HCl 10 MG AT BEDTIME 05/18 2200 AC 05/19 PO 203 Dronedarone 400 MG BID 05/20 1315 AC 05/20 PO 1535 Enoxaparin Sodium 40 MG DAILY 05/18 1000 AC 05/20 SC 0845 Finasteride 5 MG DAILY 05/18 1000 AC 05/20 PO 0845 Gabapentin 300 MG AT BEDTIME 05/18 2200 AC 05/19 PO 203 Heparin Sodium 25,000 UNIT Q24H 05/20 1345 AC 05/20 (Porcine) IV 1535 Sodium Chloride 500 ML Melatonin 5 MG ONCE ONE 05/19 2130 DC 05/19 PO 05/19 2131 2220 Metronidazole 500 MG Q8H 05/18 0500 AC 05/20 N/A 1 UNIT IV 1256 Omeprazole 20 MG DAILY AC 05/18 0700 AC 05/20 PO 0523 Sodium Chloride 1,000 ML Q8H 05/18 1045 DC 05/20 IV 0418 Vancomycin HCl 1,500 MG Q24H 05/19 1000 DC 05/20 Sodium Chloride 250 ML IV 1018 Last 24 Hrs of Lab/Jack Results Last 24 Hrs of Labs/Mics: Laboratory Tests 05/20/17 0705: Anion Gap 10, Estimated GFR > 60, BUN/Creatinine Ratio 21.3, CBC w Diff NO MAN DIFF REQ, RBC 3.54 L, MCV 86.2, MCH 29.0, RDW 16.9 H, MPV 7.7, Gran % 60.2, Lymphocytes % 21.5, Monocytes % 11.9 H, Eosinophils % 5.8 H, Basophils % 0.6, Absolute Granulocytes 3.9, Absolute Lymphocytes 1.4, Absolute Monocytes 0.8 H, Absolute Eosinophils 0.4, Absolute Basophils 0, PUBS MCHC 33.6 05/19/17 2310: D-Dimer High Sensitivty 1025 H 05/19/17 2240: TSH 4.110, Free T4 1.52 Assessment/Plan Assessment: Patient is an 85-year-old male with a past medical history of COPD on 2 L, diastolic CHF, chronic DVT status post IVC not on anticoagulation due to intracranial bleed, hypertension, hyperlipidemia, that came in from [facility] for productive cough and fever for the past 2 days. His temperature here was found to be 101.0 and O2 sats are 88% on 2 L of oxygen. He denied chest pain, shortness of breath, palpitations, nausea vomiting, diarrhea constipation, abdominal pain, bloody bowel movements, urinary incontinence, burning, hematuria. Patient's WBC count was found to be 9.6 on arrival and 13 later in the day. Hemoglobin was 12.2, creatinine 9, lactic acid was found to be 2.3 at admission and 3.4 later in the day which fell to 2.4 and then hay to 2. 6 in the evening. He was also found to have proBNP of 1390 and left shift. Chest x-ray showed no focal consolidation CT abdomen and pelvis showed acute diverticulitis of the proximal sigmoid colon in the lower left quadrant with no abscess or pneumoperitoneum. Additionally ureteral calculus with hydronephrosis is seen. CT chest showed stable large hiatal hernia containing the entire stomach and streaky and patchy consolidation in the right lower lobe and posterior right upper lobe parts counter representative of atelectasis or pneumonia. -- Patient remains afebrile with white blood cell count trending down #Acute sigmoid diverticulitis * Continue Flagyl # Rt side Pneumonia * As per infectious disease we will stop Vanco and ceftaz and start ceftriaxone #Urology was consulted for ureteral calculus with hydronephrosis. * Recommendation pending #Rule out PE To rule out PE setting of decreased oxygenation, IVC filter is not 100% effective and a PE may lead to atrial fibrillation with decreased oxygenation, we ordered a d-dimer which was elevated and lower extremity Dopplers which were positive for chronic DVT as well as acute new DVTs. * Patient had previous brain bleed in February 2015. Head MRI showed late subacute hemorrhage centered within the left cingulate gyrus causing subtle distortion of the left lateral ventricle. No midline shift or herniation found. The cause of the brain bleed was never elucidated. 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 * We followed up with Dr. Joshua, neurologist who saw the patient when he had his previous brain bleed in 2014. He recommended we give heparin drip for now and that he would see the patient tomorrow. In his notes from 2014 he attributed the patient's symptoms to cervical spine issues and not to the brain bleed. However, the brain bleed did occur and following this, the patient was placed in an IVC filter. Problem List: 1. Ureterolithiasis 2. Diverticulitis 3. Aspiration pneumonia 4. Deep venous thrombosis of lower extremity Pain Ratin Pain Location: none Pain Goal: Remain pain free Pain Plan: As needed Tomorrow's Labs & Rationales: CBC, BEP ValerieRaul 05/20/17 1352: Attending MD Review Statement Attending Statement Attending MD Statement: examined this patient, discuss w/resident/PA/PHARMACY INTAKE COORDINATOR, agreed w/resident/PA/PHARMACY INTAKE COORDINATOR, discussed with family, reviewed EMR data (avail), discussed with nursing, discussed with case mgmt, reviewed images, amended to note Attending Assessment/Plan: Pt seen and examined at bedside. d/w pt and pts family at bedside the care plan. Pateint with high D dimer and positive USG for b/l DVT. Patient started here on empiric antibitoics for possible urine, bowel, lung source now switched to ceftriaxone and flagyl. Acute sigmoid diverticulitis - abx as per ID Rt side Pneumonia- abx as per ID Acute rt hydronephrosis and rt side obstructive ureteral calculus- urology consult f/u. Sepsis- cont iv fluids and antibiotics as per ID. Follow cultures and taper abx as per C/S. Patient with elevated d dimer and USG b/l DVT with high suspicion of PE now. Cardiology recommend anticogualtion. Spoke to and obtained any history of bleed in past which she concurrs to small intracranial bleed. We discussed risks /benefits of current anticoagulation in this difficult scenario and she wants to proceed with anticaogualton for now. Will place him on frequent neurochecks with start of iv heparin which could be easily reversed if needed. We discussed plan with patient who agrees to his . wound consult for sacral wounds, routine nursing care, sacral ulcer prevention protocol.
--- NOTE | 2017-05-20 12:33 | ULTRASOUND REPORT ---
EXAMINATION: US TRIPLEX OF LOWER EXTREMITIES, BILATERAL CLINICAL INFORMATION: Pain and swelling. Evaluate for DVT. COMPARISON: Bilateral lower extremity venous Doppler ultrasound dated 05/20/2017. TECHNIQUE: Color-flow triplex imaging with spectral analysis and compression Doppler were performed on the lower extremities. FINDINGS: On previous imaging, chronic DVT was seen in the proximal left femoral vein. There now appears to be superimposed acute thrombosis, partially occlusive in the left common femoral vein and proximal and mid femoral vein and occlusive in the distal left femoral vein into the popliteal vein. Calf veins are not adequately assessed. In the right lower extremity, approximately nonocclusive and distally occlusive thrombus is seen extending from the common femoral down to the popliteal vein. Calf veins are not adequately assessed. IMPRESSION: Bilateral acute DVT extending from the common femoral to the popliteal vein. On the left side, findings are superimposed upon chronic femoral DVT. This critical result was discussed with Dr. Garcia 05/20/2017, 12:25 PM and it was ascertained that the content and urgency of this report was understood at the time of direct communication.
--- NOTE | 2017-05-20 12:53 | Event Note ---
Event Note Event Note: Bilateral acute DVT extending from the common femoral to the popliteal vein. On the left side, findings are superimposed upon chronic femoral DVT. 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 Patient was on Coumadin in the past for 5 years however it was stopped in 2014 after he was found to have intracranial hemorrhage. * Discussed with attending physician and Dr. Banerjee systems librarian. * Recommended to get stat call back from neurologist regarding anticoagulation. * Spoke with neurologist over the phone regarding starting IV heparin drip for anticoagulation for recurrent DVT and questionable PE given elevated d- dimers. * Dr. Moy agreed to start IV heparin. * Neurology will be seeing Mr. Umanzor on Sunday. * Discussed in detail with his at bedside, who agreed with the plan. * Patient was started on IV heparin drip. * Placed on every 2hr neuro checks.
[2017-05-20 14:50] VITALS: BP 124/78
[2017-05-20 22:17] VITALS: BP 140/76
[2017-05-20 22:51] LABS: PTT 49 SEC (25-37)
[2017-05-21 06:33] VITALS: BP 160/80
[2017-05-21 08:05] LABS: ABSOLUTE BASOPHIL COUNT 0 /CUMM (0.0-0.2); ABSOLUTE EOSINOPHIL COUNT 0.3 /CUMM (0.0-0.7); ABSOLUTE GRANULOCYTE CT 5.3 /CUMM (1.4-6.5); ABSOLUTE LYMPH COUNT 1.9 /CUMM (1.2-3.4); ABSOLUTE MONOCYTE COUNT 0.8 /CUMM (0.10-0.60); BASOPHIL % 0.3 % (0.0-2.0); EOSINOPHIL % 3.6 % (0-5); GRANULOCYTE % 63.3 % (42.2-75.2); HEMATOCRIT 30.9 % (42-52); MEAN CORPUSCULAR HGB 28.8 PG (27.0-31.0); MEAN CORPUSCULAR HGB CONC 33.5 G/DL (33.0-37.0); MEAN CORPUSCULAR VOLUME 85.9 FL (80.0-94.0); MEAN PLATELET VOLUME 7.7 FL (7.4-10.4); PLATELET COUNT 200 /CUMM (130-400); RBC DISTRIBUTION WIDTH 16.1 % (11.5-14.5); WHITE BLOOD CELL COUNT 8.3 /CUMM (4.8-10.8)
[2017-05-21 08:29] LABS: PTT 106 SEC (25-37)
--- NOTE | 2017-05-21 10:25 | PN- Housestaff ---
Gold SANTIAGO,Radha 05/21/17 1025: Subjective Follow-up For: Pneumonia New onset A. fib with RVR Reticulitis Ureteral calculus Chronic and new acute DVTs History of intracranial bleed Swallowing difficulties Complaints: pain scale (0-10) Tele-Events Since Last Visit: Normal sinus rhythm until 7:41 AM when he went into A. fib at a rate of 58. Patient went back into sinus rhythm at 8:41 AM with a rate of 74. Subjective: Patient seen and examined. He states that he is thirsty and wants a Coke. Patient is on nectar thick liquids. The patient has no other complaints and states that he feels okay". Review of Systems Constitutional: Reports: no symptoms. EENTM: Reports: no symptoms. Cardiovascular: Reports: no symptoms. Respiratory: Reports: no symptoms. Gastrointestinal: Reports: no symptoms. Genitourinary: Reports: no symptoms. Musculoskeletal: Reports: no symptoms. Skin: Reports: no symptoms. Neurological/Psychological: Reports: no symptoms. Hematologic/Endocrine: Reports: no symptoms. Immunologic/Allergic: Reports: no symptoms. Objective Last 24 Hrs of Vital Signs/I&O Vital Signs Date Time Temp Pulse Resp B/P B/P Pulse O2 O2 Flow FiO2 Mean Ox Delivery Rate 05/21 1451 98.3 65 24 132/70 96 Nasal 3.5L Cannula 05/21 1147 95 Nasal 3.0L Cannula 05/21 1020 75 140/84 05/21 0800 Nasal 3.0L Cannula 05/21 0633 97.5 75 36 160/80 95 Nasal 3.0L Cannula 05/20 2242 Nasal 3.0L Cannula 05/20 2217 97.4 77 32 140/76 95 Nasal Cannula 05/20 2130 64 140/76 05/20 1947 95 Nasal 2.0L Cannula 05/20 1600 Nasal 3.0L Cannula 05/20 1535 64 124/78 Intake & Output 05/21 1600 05/21 0800 05/21 0000 Intake Total 849.85 460 970 Output Total Balance 849.85 460 970 Intake, IV 309.85 340 200 Intake, Oral 540 120 770 Number 1 Bowel Movements Physical Exam General Appearance: Alert, Cooperative, No Acute Distress Skin: No Rashes Skin Temp/Moisture Exam: Warm/Dry Sepsis Skin Exam (color): Normal for Ethnicity HEENT: Atraumatic, PERRLA Cardiovascular: Normal S1, Normal S2 Lungs: Clear to Auscultation, Normal Air Movement Abdomen: Normal Bowel Sounds, Soft Neurological: Normal Speech Extremities: No Clubbing, No Cyanosis Vascular: Pulses Symmetrical Current Medications: Current Medications Sig/Pierre Start time Last Medication Dose Route Stop Time Status Admin Acetaminophen 650 MG Q6PRN PRN 05/18 0345 AC 05/18 PO 0834 Acetaminophen 1,000 MG Q6PRN PRN 05/18 0345 AC 05/19 IV 1502 Albuterol Sulfate 3 ML BID 05/18 1400 AC 05/21 INH 1144 Aspirin 81 MG DAILY 05/18 1000 AC 05/21 PO 1019 Atorvastatin Calcium 20 MG AT BEDTIME 05/18 2200 AC 05/20 PO 2129 Ceftriaxone Sodium 1,000 MG DAILY@1400 05/20 1400 AC 05/21 IV 1446 Donepezil HCl 10 MG AT BEDTIME 05/18 2200 AC 05/20 PO 2129 Dronedarone 400 MG BID 05/20 1315 AC 05/21 PO 1020 Enoxaparin Sodium 40 MG DAILY 05/18 1000 DC 05/20 SC 0845 Finasteride 5 MG DAILY 05/18 1000 AC 05/21 PO 1020 Gabapentin 300 MG AT BEDTIME 05/18 2200 AC 05/20 PO 2130 Heparin Sodium 5,000 UNIT .STK-MED ONE 05/21 0022 DC (Porcine) IV 05/21 0023 Heparin Sodium 3,540 UNIT BOLUS ONE 05/21 0020 DC 05/21 (Porcine) IV 05/21 0021 0020 Heparin Sodium 25,000 UNIT Q24H 05/20 1345 AC 05/21 (Porcine) IV 1021 Sodium Chloride 500 ML Metronidazole 500 MG Q8H 05/18 0500 AC 05/21 N/A 1 UNIT IV 1155 Omeprazole 20 MG DAILY AC 05/18 0700 AC 05/21 PO 0501 Last 24 Hrs of Lab/Jack Results Last 24 Hrs of Labs/Mics: Laboratory Tests 05/21/17 0600: Anion Gap 14, Estimated GFR > 60, BUN/Creatinine Ratio 16.3, APTT 106 *H, CBC w Diff NO MAN DIFF REQ, RBC 3.60 L, MCV 85.9, MCH 28.8, RDW 16.1 H, MPV 7.7, Gran % 63.3, Lymphocytes % 23.1, Monocytes % 9.7 H, Eosinophils % 3.6, Basophils % 0.3, Absolute Granulocytes 5.3, Absolute Lymphocytes 1.9, Absolute Monocytes 0.8 H, Absolute Eosinophils 0.3, Absolute Basophils 0, PUBS MCHC 33.5 05/20/17 2158: APTT 49 H Assessment/Plan Assessment: Patient is an 85-year-old male with a past medical history of COPD on 2 L, diastolic CHF, chronic DVT status post IVC not on anticoagulation due to intracranial bleed, hypertension, hyperlipidemia, that came in from [facility] for productive cough and fever for the past 2 days. His temperature here was found to be 101.0 and O2 sats are 88% on 2 L of oxygen. He denied chest pain, shortness of breath, palpitations, nausea vomiting, diarrhea constipation, abdominal pain, bloody bowel movements, urinary incontinence, burning, hematuria. Patient's WBC count was found to be 9.6 on arrival and 13 later in the day. Hemoglobin was 12.2, creatinine 9, lactic acid was found to be 2.3 at admission and 3.4 later in the day which fell to 2.4 and then hay to 2. 6 in the evening. He was also found to have proBNP of 1390 and left shift. Chest x-ray showed no focal consolidation CT abdomen and pelvis showed acute diverticulitis of the proximal sigmoid colon in the lower left quadrant with no abscess or pneumoperitoneum. Additionally ureteral calculus with hydronephrosis is seen. 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 Patient remains afebrile with white blood cell count trending down Plan #New onset A. fib with RVR * Patient on Multaq #Acute sigmoid diverticulitis * Continue Flagyl # Rt side Pneumonia * Continue ceftriaxone. Vanco and ceftaz were stopped. #Urology was consulted for ureteral calculus with hydronephrosis. * Recommendation pending still today #Rule out PE To rule out PE setting of decreased oxygenation, IVC filter is not 100% effective and a PE may lead to atrial fibrillation with decreased oxygenation, we ordered a d-dimer which was elevated and lower extremity Dopplers which were positive for chronic DVT as well as acute new DVTs. * Patient had previous brain bleed in February 2015. Head MRI showed late subacute hemorrhage centered within the left cingulate gyrus causing subtle distortion of the left lateral ventricle. No midline shift or herniation found. The cause of the brain bleed was never elucidated. 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 * We followed up with Dr. Joshua, neurologist who saw the patient when he had his previous brain bleed in 2014. He recommended we give heparin drip for now and that he would see the patient. In his notes from 2014 he attributed the patient 's symptoms to cervical spine issues and not to the brain bleed. However, the brain bleed did occur and following this, the patient was placed in an IVC filter. * Dr. Joshua saw the patient today and given his past he could not safely recommend giving heparin. Thus we did a VQ scan with the aim of being able to shut off the heparin. VQ scan showed very low probability of pulmonary embolism so heparin was DC'd. #Swallowing difficulty * Patient has been on nectar thick liquids and regular solids. * Patient had modified barium swallow today and speech therapist recommended continuing the patient on nectar thick liquids and regular solids for now. She also recommended to him such strategies such as small sips. FULL CODE REGULAR DIET WITH NECTAR THICK LIQUIDS DVT PROPHYLAXIS WITH ALPS Problem List: 1. Anemia 2. Ureterolithiasis 3. Diverticulitis 4. Urinary (tract) obstruction 5. Deep venous thrombosis of lower extremity 6. Atrial fibrillation with RVR 7. Pneumonia 8. History of intracranial hemorrhage Pain Ratin Pain Location: na Pain Goal: Remain pain free Pain Plan: na Tomorrow's Labs & Rationales: CBC, BEP Siobhan Paul 05/21/17 1653: Attending MD Review Statement Attending Statement Attending MD Statement: examined this patient, discuss w/resident/PA/SOUBRETTE, agreed w/resident/PA/SOUBRETTE, discussed with family, reviewed EMR data (avail), discussed with nursing, discussed with case mgmt Attending Assessment/Plan: Afib with RVR- started on MULtaq by cardiology. B/l DVT with ivc filter- pt had VQ scan done today which shows very low probability for PE, will dc iv heparin given the high risk vs benefit given prior h/o ICH. Will d/w family about the VQ scan findings and also not sure if cardiology would want him to be in anticoagulation because of Afib also. Acute diverticulitis and Obstructive 1.8 cm proximal right ureteral calculus with associated right hydronephrosis - pending urology evaluation. will cont on ceftriaxone and flagyl per ID. dysphagia- will do modified barium swallow today. d/w pt and pts family at bedside the care plan.
--- NOTE | 2017-05-21 12:31 | PN- Infect Dx ---
Subjective Subjective: Afebrile without complaints. He wants to eat solid food. Objective Last 24 Hrs of Vital Signs/I&O Vital Signs Date Time Temp Pulse Resp B/P B/P Pulse O2 O2 Flow FiO2 Mean Ox Delivery Rate 05/21 1147 95 Nasal 3.0L Cannula 05/21 1020 75 140/84 05/21 0800 Nasal 3.0L Cannula 05/21 0633 97.5 75 36 160/80 95 Nasal 3.0L Cannula 05/20 2242 Nasal 3.0L Cannula 05/20 2217 97.4 77 32 140/76 95 Nasal Cannula 05/20 2130 64 140/76 05/20 1947 95 Nasal 2.0L Cannula 05/20 1600 Nasal 3.0L Cannula 05/20 1535 64 124/78 05/20 1450 98.7 64 36 124/78 98 Nasal 3.0L Cannula Intake & Output 05/21 1600 05/21 0800 05/21 0000 Intake Total 460 970 Output Total Balance 460 970 Intake, IV 340 200 Intake, Oral 120 770 Number 1 Bowel Movements Physical Exam Other Physical Findings: He appears comfortable in no acute distress Lungs diffuse rhonchi Heart regular rhythm with no murmur Abdomen is soft, tender on palpation on the left, with no guarding or rebound, positive bowel sounds Extremities bilateral lower extremity edema, right greater than left Results Last 24 Hours of Lab Results: Laboratory Tests 05/21 05/20 0600 2158 Chemistry Sodium (137 - 145 mmol/L) 148 H Potassium (3.5 - 5.1 mmol/L) 3.4 L Chloride (98 - 107 mmol/L) 109 H Carbon Dioxide (22 - 30 mmol/L) 25 Anion Gap (5 - 16) 14 BUN (9 - 20 mg/dL) 13 Creatinine (0.7 - 1.2 mg/dL) 0.8 Estimated GFR (>60 ml/min) > 60 BUN/Creatinine Ratio (7 - 25 %) 16.3 Coagulation APTT (25 - 37 SEC) 106 *H 49 H Hematology CBC w Diff NO MAN DIFF REQ WBC (4.8 - 10.8 /CUMM) 8.3 RBC (4.70 - 6.10 /CUMM) 3.60 L Hgb (14.0 - 18.0 G/DL) 10.4 L Hct (42 - 52 %) 30.9 L MCV (80.0 - 94.0 FL) 85.9 MCH (27.0 - 31.0 PG) 28.8 RDW (11.5 - 14.5 %) 16.1 H Plt Count (130 - 400 /CUMM) 200 MPV (7.4 - 10.4 FL) 7.7 Gran % (42.2 - 75.2 %) 63.3 Lymphocytes % (20.5 - 51.1 %) 23.1 Monocytes % (1.7 - 9.3 %) 9.7 H Eosinophils % (0 - 5 %) 3.6 Basophils % (0.0 - 2.0 %) 0.3 Absolute Granulocytes (1.4 - 6.5 /CUMM) 5.3 Absolute Lymphocytes (1.2 - 3.4 /CUMM) 1.9 Absolute Monocytes (0.10 - 0.60 /CUMM) 0.8 H Absolute Eosinophils (0.0 - 0.7 /CUMM) 0.3 Absolute Basophils (0.0 - 0.2 /CUMM) 0 PUBS MCHC (33.0 - 37.0 G/DL) 33.5 Last 24 Hours of Jack Results: Blood cultures May 18 negative Recent Imaging Studies: Dopplers of both lower extremities May 20 revealed bilateral acute DVTs extending from the common femoral to the popliteal vein; chronic femoral DVT on the left Assessment/Plan Impression: Stable with temperatures and white blood cell count remaining normal now on Ceftriaxone and Flagyl, Day 3 of treatment for sigmoid diverticulitis and possible pneumonia with cultures remaining negative. His CT scan also demonstrated a right sided obstructive uropathy, which will warrant Urology evaluation. The Doppler results with acute, superimposed on chronic, DVT are noted, and he is now on Heparin. Suggestion: 1. Urology evaluation 2. Continue Ceftriaxone and Flagyl
--- NOTE | 2017-05-21 12:38 | Cons- Neurology ---
General Information and HPI Consulting Request Date of Consult: 05/21/17 Requested By: Siobhan Paul MD History of Present Illness: 87-year-old male admitted from a chronic care facility with a several day history of cough and fever. He has a known history of dementia, prior intracranial hemorrhage and is largely wheelchair-bound. He was also found to be in atrial fibrillation which apparently is of new onset. While in hospital he is also found to have acute on chronic deep venous thromboses. He has had a prior IVC filter placed. Neurology is asked to comment about the feasibility of anticoagulation going forward. Allergies/Medications Allergies: Coded Allergies: Penicillins (Intermediate, HIVES/BAD RASH 09/04/15) Home Med List: Atorvastatin Calcium (Lipitor) 20 MG TABLET 1 TAB PO QPM CHOLESTEROL ( Reported) Citalopram Hydrobromide (Celexa) 10 MG TABLET 0.5 TAB PO DAILY MENTAL HEALTH (Reported) Docusate Sodium 100 MG CAPSULE 1 CAP PO DAILY CONSTIPATION (Reported) Donepezil HCl (Aricept) 10 MG TABLET 1 TAB PO QPM DEMENTIA (Reported) Finasteride (Proscar) 5 MG TABLET 1 TAB PO DAILY PROSTATE (Reported) Gabapentin (Neurontin) 300 MG CAPSULE 1 CAP PO QPM PAIN (Reported) Ipratropium/Albuterol Sulfate (Iprat-Albut 0.5-3(2.5) MG/3 Ml) 0.5 MG-3 MG (2.5 MG BASE)/3 ML AMPUL.NEB 1 UNIT PO BID SHORTNESS OF BREATH (Reported) Lansoprazole (Prevacid) 30 MG CAPSULE.DR 1 CAP PO DAILY GERD (Reported) Melatonin 3 MG TABLET 1 TAB PO QPM SLEEP (Reported) Mirtazapine 30 MG TABLET 1 TAB PO QPM SLEEP (Reported) Multivitamin (One Daily Multivitamin) 1 EACH TABLET 1 TAB PO DAILY VITAMIN SUPPORT (Reported) Polyvinyl Alcohol (Artificial Tears) 1.4 % DROPS 3 DROP OS BID DRY EYE ( Reported) Sennosides (Senna) 8.6 MG TABLET 1 TAB PO BID CONSTIPATION (Reported) Review of Systems Review of Systems: Notable for hearing loss and memory impairment. 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 Psychosocial History Where Do You Live? [facility] Primary Language: Ukrainian Smoking Status: Former Smoker ETOH Use: occasional use Illicit Drug Use: denies illicit drug use Functional Ability Ambulation: wheel chair Exam & Diagnostic Data Vital Signs and I&O Vital Signs Date Time Temp Pulse Resp B/P B/P Pulse O2 O2 Flow FiO2 Mean Ox Delivery Rate 05/21 1147 95 Nasal 3.0L Cannula 05/21 1020 75 140/84 05/21 0800 Nasal 3.0L Cannula 05/21 0633 97.5 75 36 160/80 95 Nasal 3.0L Cannula 05/20 2242 Nasal 3.0L Cannula 05/20 2217 97.4 77 32 140/76 95 Nasal Cannula 05/20 2130 64 140/76 05/20 1947 95 Nasal 2.0L Cannula 05/20 1600 Nasal 3.0L Cannula 05/20 1535 64 124/78 05/20 1450 98.7 64 36 124/78 98 Nasal 3.0L Cannula Intake & Output 05/21 1600 05/21 0800 05/21 0000 Intake Total 460 970 Output Total Balance 460 970 Intake, IV 340 200 Intake, Oral 120 770 Number 1 Bowel Movements Elderly white male who was awake, alert and in no acute distress. He was disoriented to place and time. He was able to name the current Pres. Speech was fluent. Pupils were equal. Extraocular movements were full. The face was symmetric. Hearing was impaired. Tongue was midline. The motor examination showed no drift of the upper extremities. There was no gross lateralizing weakness. Plantar responses were flexor. The gait was not evaluated. Assessment/Plan Assessment: #1 chronic dementia #2 history of intracranial hemorrhage #3 deep venous thromboses #4 atrial fibrillation Recommendations: Although the patient is felt to be of low to moderate risk of recurrent intracranial hemorrhage due to a clinically small event and absence of known amyloid angiopathy there is still is a risk of rebleeding going forward. I cannot safely advocate the use of long-term anticoagulants. Risk-benefit ratio should always be considered and we will defer to his hospital team in this regard. Consult Acknowledgment - Thank you for your consult request.
--- NOTE | 2017-05-21 14:04 | NUCLEAR MEDICINE REPORT ---
EXAMINATION: PULMONARY VENTILATION PERFUSION STUDY CLINICAL INFORMATION: Hypoxia, elevated d-dimer. COMPARISON: No previous lung scan is available for comparison. A radiograph of the chest dated 05/21/2017 is available for comparison. Chest CT scan dated 05/18/2016 is also available for comparison. TECHNIQUE: Serial gamma scintillation camera images were obtained over the posterior chest during the single breath, equilibrium rebreathing and washout of 10.2 mCi Xe 133 gas. The patient then received 4.2 mCi Tc-99m MAA intravenously and a 6-view perfusion study was performed. FINDINGS: Ventilation images: On the single breath and equilibrium images there is decreased activity at the left lung base. There is also a band of decreased activity present across the mid right lung. The cardiac silhouette and mediastinum appear dilated. During the washout phase there is mild retention in the left lung apex and right lung base. Perfusion images: No segmental perfusion defects are present. There is a subsegmental perfusion defect present laterally in the right middle lobe. This is in the region of decreased activity on the ventilation images described above. The cardiac silhouette and mediastinum appear dilated. The ventilation and perfusion images appear well matched. The CT scan dated 05/18/2017 shows a large hiatal hernia corresponding to the region of decreased ventilation and perfusion described above at the left lung base on this radionuclide lung scan. There is also some patchy consolidation in the right lower lobe and posterior right upper lobe. IMPRESSION: Very low probability of pulmonary embolism.
--- NOTE | 2017-05-21 14:34 | RADIOLOGY REPORT ---
EXAMINATION: XR PORTABLE CHEST CLINICAL INFORMATION: Hypoxia. COMPARISON: CXR from 05/18/2017 TECHNIQUE: Portable frontal view of the chest was obtained. FINDINGS: Lung bases are suboptimally evaluated on this single view exam. Again noted is the large cardiomediastinal silhouette due to presence of a large hiatal hernia and uncoiled, ectatic, atherosclerotic aorta. The pulmonary vascular pattern remains normal. The opacity in the retrocardiac region of left lower lobe appears to represent a combination of the hiatal hernia and likely atelectasis. The visualized bones are intact. IMPRESSION: 1. Large hiatal hernia. 2. Dilated, tortuous thoracic aorta. 3. No new/acute findings in the chest compared to 05/18/2017.
[2017-05-21 14:51] VITALS: BP 132/70
--- NOTE | 2017-05-21 14:58 | RADIOLOGY REPORT ---
EXAMINATION: XR MODIFIED BARIUM SWALLOW CLINICAL INFORMATION: 87-year-old male with history of esophageal dysmotility. COMPARISON: Modified barium swallow from 11/10/2013. TECHNIQUE: Fluoroscopic assistance was provided during a modified barium swallow performed in cooperation with the speech pathology service using dynamic fluoroscopic imaging in a lateral projection. The patient's swallowing function was observed during administration of apple sauce puree, honey, nectar, thin barium contrast, and barium coated bread and cracker. FLUOROSCOPY TIME: 1 minute, 52 seconds NUMBER OF SAVED IMAGES: 15 screen captured images were saved. FINDINGS: Please refer to the speech pathology report. During oral intake of barium coated nectar, there was spillage of material to the level of the vallecula without penetration or aspiration. However, several episodes of penetration were identified during swallowing of thin barium contrast. The patient had no swallowing difficulty with respect to the barium coated bread or cracker. IMPRESSION: - Tracheal penetration (without aspiration) was observed during intake of thin barium contrast. - Please refer to the speech pathology report regarding their assessment and recommendations.
[2017-05-21 16:55] LABS: PTT 61 SEC (25-37)
--- NOTE | 2017-05-21 17:10 | PN- Cardiology ---
Subjective Subjective: * No complaints of chest discomfort, shortness of breath, lightheadedness or palpitations. * sinus rhythm with first degree AV block * Sodium 148 with potassium 3.4 * Low probability of PE with bilateral acute DVT's Objective Vital Signs and I&Os Vital Signs Date Time Temp Pulse Resp B/P B/P Pulse O2 O2 Flow FiO2 Mean Ox Delivery Rate 05/21 1451 98.3 65 24 132/70 96 Nasal 3.5L Cannula 05/21 1147 95 Nasal 3.0L Cannula 05/21 1020 75 140/84 05/21 799 Nasal 3.0L Cannula 05/21 0633 97.5 75 36 160/80 95 Nasal 3.0L Cannula 05/20 224 Nasal 3.0L Cannula 05/20 2216 97.4 77 32 140/76 95 Nasal Cannula 05/20 2130 64 140/76 05/20 1947 95 Nasal 2.0L Cannula Intake & Output 05/21 1600 05/21 0800 05/21 0000 05/20 1600 05/20 0000 Intake Total 849.85 460 970 950 400 425 Output Total Balance 849.85 460 970 950 400 425 Intake, IV 309.85 340 200 750 200 225 Intake, Oral 540 120 770 200 200 200 Number 1 1 Bowel Movements Patient 195 lb 195 lb Weight Weight Bed scale Measurement Method Physical Exam: General: WD/obese male in NAD; awake and responsive with decreased memory HEENT: NC/AT, PERRL, EOMI Neck: no JVD, no carotid bruit Heart: RRR without murmur; bowel sounds heard in chest Lungs: decreased air movement at bases bilaterally, no crackles Abdomen: soft, obese, NT, +ve bowel sounds Extremities: no edema Assessment/Plan Assessment/Plan * This patient presented with atrial fibrillation of unkown duration. His heart rate was reasonably well controlled without medications which is indicative of conduction system disease. He is now in a sinus rhythm. Continue Multaq 400mg BID to maintain a sinus rhythm and avoid the need for chronic anticoagulation. If he becomes bradycardic then Aricept can be stopped. TFT's have been normal. * The patient's chest CT was negative for any central pulmonary embolism and his V/Q scan is also low probability. His D-dimer is likely elevated due to his bilateral acute lower extremity DVT's. Neurology felt that this patient was at low to moderate probability for a recurrent bleed and should not be on chronic anticoagulatio. I would consider Eliquis 2.5mg BID for three months if living in a monitored situation. I agree that permanent anticoagulation may be of too high a risk. Continue telemetry? Yes
[2017-05-21 22:16] VITALS: BP 122/78
[2017-05-22 06:15] VITALS: BP 158/86
--- NOTE | 2017-05-22 07:28 | Cons- Urology ---
General Information and HPI Consulting Request Date of Consult: 05/22/17 Requested By: Siobhan Paul MD Reason for Consult: R renal calculi Source of Information: old records Exam Limitations: no limitations History of Present Illness: This patient is an F resident. He was admitted with new onset A-fib and sigmoid diverticulitis. 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 He has dementia. Incidental finding on CT scan was R renal calculi, one of which is approximately 1.6 cm and at the R UPJ with mild R hydronephrosis. There is no know hx of UTI, flank pain or gross hematuria. His U/A is not suspicious for UTI and urine culture is negative. He does not complain of R flank pain. Allergies/Medications Allergies: Coded Allergies: Penicillins (Intermediate, HIVES/BAD RASH 09/04/15) Home Med List: Atorvastatin Calcium (Lipitor) 20 MG TABLET 1 TAB PO QPM CHOLESTEROL ( Reported) Citalopram Hydrobromide (Celexa) 10 MG TABLET 0.5 TAB PO DAILY MENTAL HEALTH (Reported) Docusate Sodium 100 MG CAPSULE 1 CAP PO DAILY CONSTIPATION (Reported) Donepezil HCl (Aricept) 10 MG TABLET 1 TAB PO QPM DEMENTIA (Reported) Finasteride (Proscar) 5 MG TABLET 1 TAB PO DAILY PROSTATE (Reported) Gabapentin (Neurontin) 300 MG CAPSULE 1 CAP PO QPM PAIN (Reported) Ipratropium/Albuterol Sulfate (Iprat-Albut 0.5-3(2.5) MG/3 Ml) 0.5 MG-3 MG (2.5 MG BASE)/3 ML AMPUL.NEB 1 UNIT PO BID SHORTNESS OF BREATH (Reported) Lansoprazole (Prevacid) 30 MG CAPSULE.DR 1 CAP PO DAILY GERD (Reported) Melatonin 3 MG TABLET 1 TAB PO QPM SLEEP (Reported) Mirtazapine 30 MG TABLET 1 TAB PO QPM SLEEP (Reported) Multivitamin (One Daily Multivitamin) 1 EACH TABLET 1 TAB PO DAILY VITAMIN SUPPORT (Reported) Polyvinyl Alcohol (Artificial Tears) 1.4 % DROPS 3 DROP OS BID DRY EYE ( Reported) Sennosides (Senna) 8.6 MG TABLET 1 TAB PO BID CONSTIPATION (Reported) Current Medications: Current Medications Sig/Pierre Start time Last Medication Dose Route Stop Time Status Admin Acetaminophen 650 MG Q6PRN PRN 05/18 0345 AC 05/18 PO 0834 Acetaminophen 1,000 MG Q6PRN PRN 05/18 0345 AC 05/19 IV 1502 Albuterol Sulfate 3 ML BID 05/18 1400 AC 05/21 INH 1144 Aspirin 81 MG DAILY 05/18 1000 AC 05/21 PO 1019 Atorvastatin Calcium 20 MG AT BEDTIME 05/18 2200 AC 05/21 PO 2112 Ceftriaxone Sodium 1,000 MG DAILY@1400 05/20 1400 AC 05/21 IV 1446 Donepezil HCl 10 MG AT BEDTIME 05/18 2200 AC 05/21 PO 2112 Dronedarone 400 MG BID 05/20 1315 AC 05/21 PO 2112 Enoxaparin Sodium 40 MG DAILY 05/18 1000 DC 05/20 SC 0845 Finasteride 5 MG DAILY 05/18 1000 AC 05/21 PO 1020 Gabapentin 300 MG AT BEDTIME 05/18 2200 AC 05/21 PO 2112 Heparin Sodium 25,000 UNIT Q24H 05/20 1345 DC 05/21 (Porcine) IV 1021 Sodium Chloride 500 ML Metronidazole 500 MG Q8H 05/18 0500 AC 05/22 N/A 1 UNIT IV 0554 Omeprazole 20 MG DAILY AC 05/18 0700 AC 05/22 PO 0554 Past History Medical History Blood Transfusion Hx: No Neurological: dementia EENT: NONE Cardiovascular: diastolic CHF, hypertension, hyperlipidemia Respiratory: COPD, obstructive sleep apnea Gastrointestinal: GERD, hiatal hernia Hepatic: NONE Renal: benign prost hyperplasia, nephrolithiasis Musculoskeletal: gout, osteoarthritis Psychiatric: depression, insomnia Endocrine: NONE Blood Disorders: DVT Cancer(s): NONE 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 Psychosocial History Where Do You Live? [facility] Primary Language: Surinamese Smoking Status: Former Smoker ETOH Use: occasional use Illicit Drug Use: denies illicit drug use Functional Ability Ambulation: wheel chair Exam & Diagnostic Data Vital Signs and I&O Vital Signs Date Time Temp Pulse Resp B/P B/P Pulse O2 O2 Flow FiO2 Mean Ox Delivery Rate 05/22 614 97.8 70 20 158/86 95 Nasal 2.0L Cannula 05/22 0000 96 Nasal 3.0L Cannula 05/216 98.0 72 20 122/78 95 Nasal 3.0L Cannula 05/21 2112 68 05/21 1930 95 Nasal 3.0L Cannula 05/21 1451 98.3 65 24 132/70 96 Nasal 3.5L Cannula 05/21 1147 95 Nasal 3.0L Cannula 05/21 1020 75 140/84 05/21 08 Nasal 3.0L Cannula Intake & Output 05/22 0800 05/22 0000 05/21 1600 05/21 0800 05/21 0000 05/20 1600 Intake Total 600 849.85 460 970 950 Output Total Balance 600 849.85 460 970 950 Intake, IV 309.85 340 200 750 Intake, Oral 600 540 120 770 200 Number 1 1 Bowel Movements Patient 195 lb 195 lb Weight Weight Bed scale Measurement Method Patient resting in bed. No acute distress Back: no CVA tenderness Abd: soft and nontender Laboratory Tests 05/22 05/21 0625 1545 Chemistry Sodium Pending Potassium Pending Chloride Pending Carbon Dioxide Pending Anion Gap Pending BUN Pending Creatinine Pending BUN/Creatinine Ratio Pending Coagulation APTT (25 - 37 SEC) 61 H Hematology CBC w Diff Pending WBC Pending RBC Pending Hgb Pending Hct Pending MCV Pending MCH Pending RDW Pending Plt Count Pending MPV Pending PUBS MCHC Pending Assessment/Plan Assessment/Plan Imp: 1. Incidentally found R renal calculi, one is at UPJ and is causing mild hydronephrosis, likely chronic Plan: 1. In view of lack of sx's, non infected urine, normal creatinine and comorbidities will follow conservatively. If tx of stone becomes necessary ESWL would be an option but he would be at risk for steinstrasse due to size of stone. Consult Acknowledgment - Thank you for your consult request.
[2017-05-22 07:59] LABS: ABSOLUTE BASOPHIL COUNT 0 /CUMM (0.0-0.2); ABSOLUTE EOSINOPHIL COUNT 0.3 /CUMM (0.0-0.7); ABSOLUTE GRANULOCYTE CT 5.5 /CUMM (1.4-6.5); ABSOLUTE LYMPH COUNT 1.8 /CUMM (1.2-3.4); ABSOLUTE MONOCYTE COUNT 0.7 /CUMM (0.10-0.60); BASOPHIL % 0.5 % (0.0-2.0); EOSINOPHIL % 3.6 % (0-5); GRANULOCYTE % 66.4 % (42.2-75.2); HEMATOCRIT 31.2 % (42-52); MEAN CORPUSCULAR HGB 28.6 PG (27.0-31.0); MEAN CORPUSCULAR HGB CONC 33.3 G/DL (33.0-37.0); MEAN CORPUSCULAR VOLUME 85.8 FL (80.0-94.0); MEAN PLATELET VOLUME 7.9 FL (7.4-10.4); PLATELET COUNT 216 /CUMM (130-400); RBC DISTRIBUTION WIDTH 16.3 % (11.5-14.5); RED BLOOD CELL CT 3.64 /CUMM (4.70-6.10); WHITE BLOOD CELL COUNT 8.3 /CUMM (4.8-10.8)
--- NOTE | 2017-05-22 09:09 | PN- Housestaff ---
Gold SANTIAGO,Radha 05/22/1709: Subjective Follow-up For: Pneumonia New onset A. fib with RVR Reticulitis Ureteral calculus Chronic and new acute DVTs History of intracranial bleed Swallowing difficulties Subjective: patient feels good today. denies dysuria, chest pain, but does complain of bilateral upper leg pain. patient has not ambulated. Review of Systems Constitutional: Reports: no symptoms. Musculoskeletal: Reports: muscle pain. Objective Last 24 Hrs of Vital Signs/I&O Vital Signs Date Time Temp Pulse Resp B/P B/P Pulse O2 O2 Flow FiO2 Mean Ox Delivery Rate 05/22 2204 97.4 68 20 118/70 94 05/22 2142 Nasal 2.0L Cannula 05/22 2135 67 130/72 05/22 1900 95 Nasal 3.0L Cannula 05/22 1442 98.8 65 32 120/74 95 Nasal 3.0L Cannula 05/22 1136 94 Nasal 3.0L Cannula 05/22 0918 62 126/70 05/22 0916 62 126/70 05/22 0800 Nasal 3.0L Cannula 05/22 0615 97.8 70 20 158/86 95 Nasal 2.0L Cannula Intake & Output 05/23 0800 05/23 0000 05/22 1600 Intake Total 342 500 Output Total Balance 342 500 Intake, IV 140 Intake, Oral 342 360 Number 1 Bowel Movements Physical Exam General Appearance: Alert, Cooperative, No Acute Distress HEENT: Atraumatic Cardiovascular: Normal S1, Normal S2, No Murmurs Lungs: Clear to Auscultation, Normal Air Movement Abdomen: Normal Bowel Sounds, Soft Extremities: No Clubbing, No Cyanosis, No Edema Current Medications: Current Medications Sig/Pierre Start time Last Medication Dose Route Stop Time Status Admin Acetaminophen 650 MG Q6PRN PRN 05/18 0345 AC 05/18 PO 0834 Acetaminophen 1,000 MG Q6PRN PRN 05/18 0345 AC 05/19 IV 1502 Albuterol Sulfate 3 ML BID 05/18 1400 AC 05/22 INH 1900 Aspirin 81 MG DAILY 05/18 1000 AC 05/22 PO 0918 Atorvastatin Calcium 20 MG AT BEDTIME 05/18 2199 AC 05/22 PO 2135 Ceftriaxone Sodium 1,000 MG DAILY@1400 05/20 1400 AC 05/22 IV 1315 Donepezil HCl 10 MG AT BEDTIME 05/18 2199 AC 05/22 PO 213 Dronedarone 400 MG BID 05/20 1315 AC 05/22 PO 213 Finasteride 5 MG DAILY 05/18 1000 AC 05/22 PO 18 Gabapentin 300 MG AT BEDTIME 05/18 2199 AC 05/22 PO 213 Metronidazole 500 MG Q8H 05/18 0500 AC 05/22 N/A 1 UNIT IV 2132 Omeprazole 20 MG DAILY AC 05/18 0700 AC 05/22 PO 0554 Potassium Chloride 60 MEQ ONCE ONE 05/22 1030 DC 05/22 PO 05/22 1031 1124 Zinc Oxide 1 LAURYN BID 05/22 1039 AC 05/22 [facility] 2136 Last 24 Hrs of Lab/Jack Results Last 24 Hrs of Labs/Mics: Laboratory Tests 05/22/17 0625: Anion Gap 13, Estimated GFR > 60, BUN/Creatinine Ratio 13.8, CBC w Diff NO MAN DIFF REQ, RBC 3.64 L, MCV 85.8, MCH 28.6, RDW 16.3 H, MPV 7.9, Gran % 66.4, Lymphocytes % 21.3, Monocytes % 8.2, Eosinophils % 3.6, Basophils % 0.5, Absolute Granulocytes 5.5, Absolute Lymphocytes 1.8, Absolute Monocytes 0.7 H, Absolute Eosinophils 0.3, Absolute Basophils 0, PUBS MCHC 33.3 Assessment/Plan Assessment: Patient is an 85-year-old male with a past medical history of COPD on 2 L, diastolic CHF, chronic DVT status post IVC not on anticoagulation due to intracranial bleed, hypertension, hyperlipidemia, that came in from [facility] for productive cough and fever for the past 2 days. His temperature here was found to be 101.0 and O2 sats are 88% on 2 L of oxygen. He denied chest pain, shortness of breath, palpitations, nausea vomiting, diarrhea constipation, abdominal pain, bloody bowel movements, urinary incontinence, burning, hematuria. Patient's WBC count was found to be 9.6 on arrival and 13 later in the day. Hemoglobin was 12.2, creatinine 9, lactic acid was found to be 2.3 at admission and 3.4 later in the day which fell to 2.4 and then hay to 2. 6 in the evening. He was also found to have proBNP of 1390 and left shift. Chest x-ray showed no focal consolidation CT abdomen and pelvis showed acute diverticulitis of the proximal sigmoid colon in the lower left quadrant with no abscess or pneumoperitoneum. Additionally ureteral calculus with hydronephrosis is seen. 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 Patient remains afebrile with white blood cell count trending down Plan #New onset A. fib with RVR * continue Multaq #Acute sigmoid diverticulitis * Continue Flagyl # Rt side Pneumonia * Continue ceftriaxone. Vanco and ceftaz were stopped. #Urology was consulted for ureteral calculus with hydronephrosis. * Recommendation for conservative management by urology #Rule out PE To rule out PE setting of decreased oxygenation, IVC filter is not 100% effective and a PE may lead to atrial fibrillation with decreased oxygenation, we ordered a d-dimer which was elevated and lower extremity Dopplers which were positive for chronic DVT as well as acute new DVTs. * Patient had previous brain bleed in February 2015. Head MRI showed late subacute hemorrhage centered within the left cingulate gyrus causing subtle distortion of the left lateral ventricle. No midline shift or herniation found. The cause of the brain bleed was never elucidated. 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 * We followed up with Dr. Joshua, neurologist who saw the patient when he had his previous brain bleed in 2014. He recommended we give heparin drip for now and that he would see the patient. In his notes from 2014 he attributed the patient 's symptoms to cervical spine issues and not to the brain bleed. However, the brain bleed did occur and following this, the patient was placed in an IVC filter. * Dr. Joshua saw the patient today and given his past he could not safely recommend giving heparin. Thus we did a VQ scan with the aim of being able to shut off the heparin. VQ scan showed very low probability of pulmonary embolism so heparin was DC'd and remains off. #disposition as patient has been immobile here, we would like to check his level of functioning and possibly place him in rehab to get him moving which would decrease propogation of dvts. place pt consult #Swallowing difficulty * Patient has been on nectar thick liquids and regular solids. * Patient had modified barium swallow today and speech therapist recommended continuing the patient on nectar thick liquids and regular solids for now. She also recommended to him such strategies such as small sips. FULL CODE REGULAR DIET WITH NECTAR THICK LIQUIDS DVT PROPHYLAXIS WITH ALPS Problem List: 1. Atrial fibrillation with RVR 2. Pneumonia 3. History of intracranial hemorrhage 4. Diverticulitis 5. Ureterolithiasis 6. Anemia 7. Deep venous thrombosis of lower extremity 8. Hiatal hernia Pain Ratin Pain Location: na Pain Goal: Pain 4 or less Pain Plan: na Tomorrow's Labs & Rationales: cbc bep Siobhan Paul 05/22/17 1648: Attending MD Review Statement Attending Statement Attending MD Statement: examined this patient, discuss w/resident/PA/TRAINING ENGINEER, agreed w/resident/PA/TRAINING ENGINEER, reviewed EMR data (avail), discussed with nursing, discussed with case mgmt Attending Assessment/Plan: had d/w pts and cardiology about the anticoagulation. given the pt has had recurrent dvts in the past and has IVC filter it was decided not to do anticoagulation for 3 months given his risk of ICH and also limited benefit from short term anticoagulation . AFIB with Rvr - cont on multaq per cardiology. Hydronephrosis secondary to renal calculi- Urology saw the pt. no acute intervention . ESWL as an outpatient . Dysphagia- MBS done. pt on nectar thick liquids and regular low residue diet for now. PT eval ordered.
[2017-05-22 09:16] VITALS: BP 126/70
--- NOTE | 2017-05-22 11:03 | PN- Infect Dx ---
Subjective Subjective: Afebrile without specific complaints. He remains on a nectar thick diet based on the swallowing evaluation. Objective Last 24 Hrs of Vital Signs/I&O Vital Signs Date Time Temp Pulse Resp B/P B/P Pulse O2 O2 Flow FiO2 Mean Ox Delivery Rate 05/22 917 62 126/70 05/22 0816 62 126/70 05/22 0800 Nasal 3.0L Cannula 05/22 0615 97.8 70 20 158/86 95 Nasal 2.0L Cannula 05/22 0000 96 Nasal 3.0L Cannula 05/21 2216 98.0 72 20 122/78 95 Nasal 3.0L Cannula 05/21 2112 68 05/21 1930 95 Nasal 3.0L Cannula 05/21 1451 98.3 65 24 132/70 96 Nasal 3.5L Cannula 05/21 1147 95 Nasal 3.0L Cannula Intake & Output 05/22 1600 05/22 0800 05/22 0000 Intake Total 360 600 Output Total Balance 360 600 Intake, IV 120 Intake, Oral 240 600 Physical Exam Other Physical Findings: He appears comfortable in no acute distress Lungs bilateral expiratory wheezes Heart irregular rhythm with no murmur Abdomen is soft, nontender with positive bowel sounds Extremities bilateral lower extremity edema, right greater than left Results Last 24 Hours of Lab Results: Laboratory Tests 05/22 05/21 0625 1545 Chemistry Sodium (137 - 145 mmol/L) 147 H Potassium (3.5 - 5.1 mmol/L) 3.3 L Chloride (98 - 107 mmol/L) 108 H Carbon Dioxide (22 - 30 mmol/L) 26 Anion Gap (5 - 16) 13 BUN (9 - 20 mg/dL) 11 Creatinine (0.7 - 1.2 mg/dL) 0.8 Estimated GFR (>60 ml/min) > 60 BUN/Creatinine Ratio (7 - 25 %) 13.8 Coagulation APTT (25 - 37 SEC) 61 H Hematology CBC w Diff NO MAN DIFF REQ WBC (4.8 - 10.8 /CUMM) 8.3 RBC (4.70 - 6.10 /CUMM) 3.64 L Hgb (14.0 - 18.0 G/DL) 10.4 L Hct (42 - 52 %) 31.2 L MCV (80.0 - 94.0 FL) 85.8 MCH (27.0 - 31.0 PG) 28.6 RDW (11.5 - 14.5 %) 16.3 H Plt Count (130 - 400 /CUMM) 216 MPV (7.4 - 10.4 FL) 7.9 Gran % (42.2 - 75.2 %) 66.4 Lymphocytes % (20.5 - 51.1 %) 21.3 Monocytes % (1.7 - 9.3 %) 8.2 Eosinophils % (0 - 5 %) 3.6 Basophils % (0.0 - 2.0 %) 0.5 Absolute Granulocytes (1.4 - 6.5 /CUMM) 5.5 Absolute Lymphocytes (1.2 - 3.4 /CUMM) 1.8 Absolute Monocytes (0.10 - 0.60 /CUMM) 0.7 H Absolute Eosinophils (0.0 - 0.7 /CUMM) 0.3 Absolute Basophils (0.0 - 0.2 /CUMM) 0 PUBS MCHC (33.0 - 37.0 G/DL) 33.3 Last 24 Hours of Jack Results: No new cultures Recent Imaging Studies: Chest x-ray May 21 reveals no change from his previous x-rays VQ scan May 21 very low probability of pulmonary embolism Modified barium swallow May 21 reveals tracheal penetration without aspiration Assessment/Plan Impression: Stable with temperatures and white blood cell count remaining normal on Ceftriaxone and Flagyl, Day 4 of treatment for sigmoid diverticulitis and possible pneumonia. Urology evaluation noted and appreciated, with no plans for any intervention at this time. Cardiology and Neurology comments noted regarding his anticoagulation in view of his acute, superimposed on chronic, DVTs and his history of an intracerebral bleed. Suggestion: 1. Continue Ceftriaxone and Flagyl
[2017-05-22 14:42] VITALS: BP 120/74
--- NOTE | 2017-05-22 16:32 | Discharge Summary ---
Visit Information Visit Dates Admission Date: 05/18/17 Discharge Date: 05/26/2017 Hospital Course Course Attending Physician: Humberto SANTIAGO,Siobhan Jacinto Primary Care Physician: Dulce SANTIAGO,Mohsen Garcia Hospital Course: Patient is a 87-year-old gentleman with a past medical history significant for hypertension, hyperlipidemia, diastolic heart failure, history of reccurent DVT with IVC filter currently not on any anticoagulation due to intracranial bleed/ hemorrhage, dementia, senior living resident, COPD on 2 L oxygen, obstructive sleep apnea not on CPAP, nephrolithiasis presented to the ED from [facility] with chief complaints of worsening weakness, fever and productive cough. Patient is a poor historian so most of the history was obtained from the . As per , patient has been feeling more weak and lethargic for the last 1 week(bedridden most of the time). He has been having productive cough with trouble breathing as well. Appetite has been low. patient had a temperature of 101.1 and he desaturated to 88% on 2 L, was sent into the ER for further assessment. On review of systems patient denied any nausea vomiting/abdominal discomfort denied any urinary complaints. He is wheelchair-bound for the last 2 years. --- Vitals on admission temperature 98.5, pulse 125, respiratory rate 22, blood pressure 99/55 improved to 101/61 on 3 L initially currently on 6 L. Labs: WBC 9.6, neutrophils 84%, bands 3, hemoglobin 12.2, hematocrit 37.2, platelet 191, sodium 141, potassium 3.9, chloride 104, bicarbonate 24, BUN 16, creatinine 0.9, glucose 159, calcium 9.0, BNP 1390, lactate 2.3, INR 1.28 AB.41/36/88/23 on [address] abdomen and pelvis and chest without IV contrast: 1. Acute diverticulitis of the proximal sigmoid colon in the left lower quadrant. No abscess or pneumoperitoneum. 2. Obstructive 1.8 cm proximal right ureteral calculus with associated right hydronephrosis. Additional large nonobstructive right sided intrarenal calculi are noted. 3. Streaky and patchy consolidation in the right lower lobe and posterior right upper lobe. Findings could represent atelectasis or pneumonia. 4. Stable large hiatal hernia containing the entire stomach. problem list 1. Acute hypoxic respiratory failure with sepsis due to community-acquired pneumonia. 2. Acute diverticulitis of the proximal sigmoid colon 3. A. fib with RVR in the setting of underlying infection/dehydration 4. Obstructive right ureteral calculus with associated right-sided hydronephrosis. 5. Acute on chronic diastolic heart failure. 6. History of BPH 7. History of hyperlipidemia 8. History of dementia 9. History of COPD 10. History of GERD --- Acute hypoxic respiratory failure from sepsis and pneumonia Patient presented with one-week history of lethargic and weakness and more acute onset of productive cough and fever. He was found to have a low-grade fever, a mild leukocytosis with bandemia, atrial fibrillation with a CT of the chest, abdomen and pelvis revealing diverticulitis of the proximal sigmoid colon in the left lower quadrant, an obstructive 1.8 cm proximal right ureteral calculus with associated right hydronephrosis and streaky and patchy consolidation in the right lower lobe and posterior right upper lobe. His clinical picture was consistent with sepsis, with several sources including sigmoid diverticulitis, multilobar pneumonia and the urinary tract. He was covered initially with vancomycin, ceftaz for healthcare associated pneumonia. However given his urine Legionella, strep, blood cultures being negative antibiotics were narrowed. Vanco and ceftaz were stopped and patient was started on ceftriaxone. Patient received antibiotics for a total of 7 days. New onset atrial fibrillation Patient was found to have atrial fibrillation of unknown duration. His heart rate is reasonably well controlled without medications for rate control. This patient is not believed to be a candidate for chronic anticoagulation due to a prior intracerebral bleeding issue. He was continued on aspirin. He was given multaq for maintenance of sinus rhythm. Discussed with family in detail about chronic anticoagulation. No plans for chronic anticoagulation after talking to maintenance technician 2nd shift, neurologist because of bleeding issue given his prior history of intracranial bleed when he was on Coumadin. Patient was discharged on multaq 400 twice daily #low probability PE we ruled out PE in the setting of decreased oxygenation, as IVC filter is not 100% effective and a PE may lead to atrial fibrillation with decreased oxygenation, we ordered a d-dimer which was elevated and lower extremity Dopplers which were positive for chronic DVT as well as acute new DVTs. Patient had previous brain bleed in February 2015. Head MRI showed late subacute hemorrhage centered within the left cingulate gyrus causing subtle distortion of the left lateral ventricle. No midline shift or herniation found. The cause of the brain bleed was never elucidated. 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 We followed up with Dr. Joshua, neurologist who saw the patient when he had his previous brain bleed in 2014. However, the brain bleed did occur and following this, the patient was placed in an IVC filter. Although the patient is felt to be of low to moderate risk of recurrent intracranial hemorrhage due to a clinically small event and absence of known amyloid angiopathy there is still is a risk of rebleeding going forward. So no plans for chronic anticoagulation as per maintenance technician 2nd shift, neurologist. Ureteral calculus with hydronephrosis Incidentally found R renal calculi, one is at [facility] and is causing mild hydronephrosis, likely chronic. In view of lack of sx's, non infected urine, normal creatinine and comorbidities followed conservatively. If tx of stone becomes necessary ESWL would be an option as an outpatient. Acute diverticulitis of the proximal sigmoid colon There is sigmoid diverticulosis. There is some focal colonic wall thickening and pericolonic fat stranding in the left lower quadrant suspicious for acute diverticulitis. He was given antibiotics Cipro and Flagyl for diverticulitis FOR 10 days. Bilateral acute DVT chronic DVT was seen in the proximal left femoral vein. There now appears to be superimposed acute thrombosis, partially occlusive in the left common femoral vein and proximal and mid femoral vein and occlusive in the distal left femoral vein into the popliteal vein. In the right lower extremity, approximately nonocclusive and distally occlusive thrombus is seen extending from the common femoral down to the popliteal vein. IVC filter was placed in 2014. No plans for chronic anticoagulation given his h/o intracranial bleed. MBS During oral intake of barium coated nectar, there was spillage of material to the level of the vallecula without penetration or aspiration. However, several episodes of penetration were identified during swallowing of thin barium contrast. The patient had no swallowing difficulty with respect to the barium coated bread or cracker. Recommended to continue nectar thick diet. Hypernateremia Sodium went up to 153 from 141 periodically. Of note he was on nectar thick diet, not taking enough fluids. He was given D5W at 100 mL per hour for 2 days after which sodium decreased to 144. Hyperlipidemia continued on aspirin, statin Dementia continued on Aricept BPH continued on finasteride Neuropathy continued on gabapentin GERD continued on Prilosec COPD continued total respiratory care, inhaler treatment DVT prophylaxis alps, DNR/DNI, nectar and reg diet. Allergies: Coded Allergies: Penicillins (Intermediate, HIVES/BAD RASH 09/04/15) Pertinent Lab Results: cxr FINDINGS: There is redemonstrated eventration of the left hemidiaphragm which results in increased density over the heart and loss of visualization of the medial left hemidiaphragm. No focal consolidation or effusion. Cardiac mediastinal silhouette is prominent but stable. No pneumothorax. No acute osseous abnormalities. IMPRESSION: 1. No focal consolidation or effusion. 2. Increased density over the heart favored to represent chronic eventration of the left hemidiaphragm. --- ct abd/pelvis IMPRESSION: 1. Acute diverticulitis of the proximal sigmoid colon in the left lower quadrant. No abscess or pneumoperitoneum. 2. Obstructive 1.8 cm proximal right ureteral calculus with associated right hydronephrosis. Additional large nonobstructive right sided intrarenal calculi are noted. 3. Streaky and patchy consolidation in the right lower lobe and posterior right upper lobe. Findings could represent atelectasis or pneumonia. 4. Stable large hiatal hernia containing the entire stomach. - echo CONCLUSIONS 1. Technically limited study. Consider a ANNA if clinically relevent. 2. Small and possibly underfilled left ventricle. 3. Normal EF of 55% with apical akinesis based on limited views. Impaired LV relaxation is noted. 4. Trace tricuspid regurgitation. IMPRESSION: Bilateral acute DVT extending from the common femoral to the popliteal vein. On the left side, findings are superimposed upon chronic femoral DVT. v/q scan Very low probability of pulmonary embolism. Disposition Summary Disposition Principal Diagnosis: Acute hypoxic respiratory failure Sepsis from pneumonia Acute diverticulitis Ureteral calculus with hydronephrosis New onset atrial fibrillation Bilateral DVT HYPERNATREMIA Additional Diagnosis: Low probability for pulmonary embolism Discharge Disposition: SNF Discharge Instructions General Discharge Information Code Status: Do Not Resucitate/Intubat Patient's Diet: NecTAR Thick diet Patient's Activity: As tolerated Follow-Up Instructions/Appts: Please follow-up with PCP in one week after discharge. Please follow-up with maintenance technician 2nd shift in 1 week after discharge Please follow-up with urologist in 1 week after discharge Medications at Discharge Discharge Medications: Continue taking these medications: Multivitamin (One Daily Multivitamin) 1 EACH TABLET 1 Tablet ORAL DAILY Finasteride (Proscar) 5 MG TABLET 1 Tablet ORAL DAILY Donepezil HCl (Aricept) 10 MG TABLET 1 Tablet ORAL Every night Gabapentin (Neurontin) 300 MG CAPSULE 1 Capsule ORAL Every night Melatonin (Melatonin) 3 MG TABLET 1 Tablet ORAL Every night Atorvastatin Calcium (Lipitor) 20 MG TABLET 1 Tablet ORAL Every night Lansoprazole (Prevacid) 30 MG CAPSULE.DR 1 Capsule ORAL DAILY Citalopram Hydrobromide (Celexa) 10 MG TABLET 0.5 Tablet ORAL DAILY Docusate Sodium (Docusate Sodium) 100 MG CAPSULE 1 Capsule ORAL DAILY Polyvinyl Alcohol (Artificial Tears) 1.4 % DROPS 3 DROP Left Eye TWICE DAILY Ipratropium/Albuterol Sulfate (Iprat-Albut 0.5-3(2.5) MG/3 Ml) 0.5 MG-3 MG (2.5 MG BASE)/3 ML AMPUL.NEB 1 Unit ORAL TWICE DAILY Sennosides (Senna) 8.6 MG TABLET 1 Tablet ORAL TWICE DAILY Mirtazapine (Mirtazapine) 30 MG TABLET 1 Tablet ORAL Every night Qty = 30 Start taking the following new medications: Ciprofloxacin HCl (Cipro) 500 MG TABLET 1 Tablet ORAL TWICE DAILY Qty = 3 No Refills Metronidazole (Flagyl) 500 MG TABLET 1 Tablet ORAL THREE TIMES DAILY Qty = 4 No Refills Dronedarone HCl (Multaq) 400 MG TABLET 1 Tablet ORAL TWICE DAILY Qty = 60 No Refills Copies To: Dulce SANTIAGO,Mohsen Garcia
--- NOTE | 2017-05-22 19:56 | PN- Cardiology ---
Subjective Subjective: * Patient still has some shortness of breath. * potassium 3.3 * sinus rhythm with first degree AV block Objective Vital Signs and I&Os Vital Signs Date Time Temp Pulse Resp B/P B/P Pulse O2 O2 Flow FiO2 Mean Ox Delivery Rate 05/22 1900 95 Nasal 3.0L Cannula 05/22 1442 98.8 65 32 120/74 95 Nasal 3.0L Cannula 05/22 1136 94 Nasal 3.0L Cannula 05/22 0818 62 126/70 05/22 0816 62 126/70 05/22 799 Nasal 3.0L Cannula 05/22 0615 97.8 70 20 158/86 95 Nasal 2.0L Cannula 05/22 0000 96 Nasal 3.0L Cannula 05/21 2216 98.0 72 20 122/78 95 Nasal 3.0L Cannula 05/21 2112 68 Intake & Output 05/22 1600 05/22 0800 05/22 0000 05/21 1600 05/21 0000 Intake Total 500 360 600 849.85 460 970 Output Total Balance 500 360 600 849.85 460 970 Intake, IV 140 120 309.85 340 200 Intake, Oral 360 240 600 540 120 770 Number 1 Bowel Movements Patient 195 lb Weight Physical Exam: General: WD/obese male in NAD; awake and responsive with decreased memory HEENT: NC/AT, PERRL, EOMI Neck: no JVD, no carotid bruit Heart: RRR without murmur; bowel sounds heard in chest Lungs: decreased air movement at bases bilaterally, no crackles Abdomen: soft, obese, NT, +ve bowel sounds Extremities: no edema Assessment/Plan Assessment/Plan * This patient presented with atrial fibrillation of unkown duration. His heart rate was reasonably well controlled without medications which is indicative of conduction system disease. He is now in a sinus rhythm. Continue Multaq 400mg BID to maintain a sinus rhythm and avoid the need for chronic anticoagulation. If he becomes bradycardic then Aricept can be stopped. TFT's have been normal. * The patient's chest CT was negative for any central pulmonary embolism and his V/Q scan is also low probability. His D-dimer is likely elevated due to his bilateral acute lower extremity DVT's. Neurology felt that this patient was at low to moderate probability for a recurrent bleed and should not be on chronic anticoagulation. Consideration was given to short term anticoagulation and it was decided that this would not be of any parts counterman benefit and will be deferred. Continue telemetry? Yes
[2017-05-22 22:05] VITALS: BP 118/70
[2017-05-23 06:53] VITALS: BP 132/76
[2017-05-23 07:51] LABS: ABSOLUTE BASOPHIL COUNT 0 /CUMM (0.0-0.2); ABSOLUTE EOSINOPHIL COUNT 0.4 /CUMM (0.0-0.7); ABSOLUTE LYMPH COUNT 2.1 /CUMM (1.2-3.4); ABSOLUTE MONOCYTE COUNT 0.8 /CUMM (0.10-0.60); BASOPHIL % 0.4 % (0.0-2.0); EOSINOPHIL % 4.1 % (0-5); GRANULOCYTE % 64.4 % (42.2-75.2); HEMATOCRIT 31.5 % (42-52); MEAN CORPUSCULAR HGB 28.4 PG (27.0-31.0); MEAN CORPUSCULAR HGB CONC 33.2 G/DL (33.0-37.0); MEAN CORPUSCULAR VOLUME 85.6 FL (80.0-94.0); MEAN PLATELET VOLUME 7.6 FL (7.4-10.4); PLATELET COUNT 248 /CUMM (130-400); RBC DISTRIBUTION WIDTH 16.3 % (11.5-14.5); RED BLOOD CELL CT 3.69 /CUMM (4.70-6.10); WHITE BLOOD CELL COUNT 9.3 /CUMM (4.8-10.8)
--- NOTE | 2017-05-23 10:54 | PN- Infect Dx ---
Subjective Subjective: Afebrile without specific complaints. He is apparently tolerating a regular diet. Objective Last 24 Hrs of Vital Signs/I&O Vital Signs Date Time Temp Pulse Resp B/P B/P Pulse O2 O2 Flow FiO2 Mean Ox Delivery Rate 05/23 0849 68 132/76 05/23 0653 97.8 59 20 132/76 94 Nasal Cannula 05/22 2205 97.4 68 20 118/70 94 05/22 2142 Nasal 2.0L Cannula 05/22 2135 67 130/72 05/22 1900 95 Nasal 3.0L Cannula 05/22 1442 98.8 65 32 120/74 95 Nasal 3.0L Cannula 05/22 1136 94 Nasal 3.0L Cannula Intake & Output 05/23 1600 05/23 0800 05/23 0000 Intake Total 200 342 Output Total Balance 200 342 Intake, IV 200 Intake, Oral 342 Number 1 Bowel Movements Physical Exam Other Physical Findings: He is awake and alert in no acute distress Lungs bilateral expiratory wheezes with scattered crackles Heart irregular rhythm with no murmur Abdomen is soft, nontender with positive bowel sounds Extremities bilateral lower extremity edema Results Last 24 Hours of Lab Results: Laboratory Tests 05/23 635 Chemistry Sodium (137 - 145 mmol/L) 151 H Potassium (3.5 - 5.1 mmol/L) 3.9 Chloride (98 - 107 mmol/L) 110 H Carbon Dioxide (22 - 30 mmol/L) 28 Anion Gap (5 - 16) 13 BUN (9 - 20 mg/dL) 10 Creatinine (0.7 - 1.2 mg/dL) 0.8 Estimated GFR (>60 ml/min) > 60 BUN/Creatinine Ratio (7 - 25 %) 12.5 Hematology CBC w Diff NO MAN DIFF REQ WBC (4.8 - 10.8 /CUMM) 9.3 RBC (4.70 - 6.10 /CUMM) 3.69 L Hgb (14.0 - 18.0 G/DL) 10.5 L Hct (42 - 52 %) 31.5 L MCV (80.0 - 94.0 FL) 85.6 MCH (27.0 - 31.0 PG) 28.4 RDW (11.5 - 14.5 %) 16.3 H Plt Count (130 - 400 /CUMM) 248 MPV (7.4 - 10.4 FL) 7.6 Gran % (42.2 - 75.2 %) 64.4 Lymphocytes % (20.5 - 51.1 %) 23.0 Monocytes % (1.7 - 9.3 %) 8.1 Eosinophils % (0 - 5 %) 4.1 Basophils % (0.0 - 2.0 %) 0.4 Absolute Granulocytes (1.4 - 6.5 /CUMM) 6.0 Absolute Lymphocytes (1.2 - 3.4 /CUMM) 2.1 Absolute Monocytes (0.10 - 0.60 /CUMM) 0.8 H Absolute Eosinophils (0.0 - 0.7 /CUMM) 0.4 Absolute Basophils (0.0 - 0.2 /CUMM) 0 PUBS MCHC (33.0 - 37.0 G/DL) 33.2 Last 24 Hours of Jack Results: No new cultures Assessment/Plan Impression: Stable with temperatures and white blood cell count remaining normal on Ceftriaxone and Flagyl, Day 5 of treatment for sigmoid diverticulitis and possible pneumonia. Suggestion: 1. Discontinue Ceftriaxone 2. Begin Ciprofloxacin 500 mg po every 12 hours 3. Change Flagyl to 500 mg po every 8 hours
--- NOTE | 2017-05-23 11:28 | PN- Housestaff ---
Gold SANTIAGO,Radha 05/23/17 1125: Subjective Follow-up For: Pneumonia New onset A. fib Diverticulitis Ureteral calculus Complaints: no complaints Review of Systems Constitutional: Reports: weakness. Objective Last 24 Hrs of Vital Signs/I&O Vital Signs Date Time Temp Pulse Resp B/P B/P Pulse O2 O2 Flow FiO2 Mean Ox Delivery Rate 05/23 190 93 Nasal 2.0L Cannula 05/23 1600 Nasal 2.0L Cannula 05/23 1447 97.9 65 28 120/62 94 Nasal 2.0L Cannula 05/23 0905 92 Nasal 2.0L Cannula 05/23 0849 68 132/76 05/23 0800 94 Nasal 2.0L Cannula 05/23 0653 97.8 59 20 132/76 94 Nasal Cannula 05/22 2205 97.4 68 20 118/70 94 Intake & Output 05/23 1600 05/23 0800 05/23 0000 Intake Total 850 200 342 Output Total Balance 850 200 342 Intake, IV 130 200 Intake, Oral 720 342 Number 1 1 Bowel Movements Physical Exam General Appearance: Alert, Cooperative, No Acute Distress Current Medications: Current Medications Sig/Pierre Start time Last Medication Dose Route Stop Time Status Admin Acetaminophen 650 MG Q6PRN PRN 05/18 0345 AC 05/18 PO 0834 Acetaminophen 1,000 MG Q6PRN PRN 05/18 0345 AC 05/19 IV 1502 Albuterol Sulfate 3 ML BID 05/18 1400 AC 05/23 INH 1900 Aspirin 81 MG DAILY 05/18 1000 AC 05/23 PO 0848 Atorvastatin Calcium 20 MG AT BEDTIME 05/180 AC 05/22 PO 2135 Ceftriaxone Sodium 1,000 MG DAILY@1400 05/20 1400 DC 05/23 IV 1317 Ciprofloxacin 500 MG BID 05/23 220 AC PO 05/27 215 Donepezil HCl 10 MG AT BEDTIME 05/18 2200 AC 05/22 PO 2135 Dronedarone 400 MG BID 05/20 1315 AC 05/23 PO 0849 Finasteride 5 MG DAILY 05/18 1000 AC 05/23 PO 0849 Gabapentin 300 MG AT BEDTIME 05/18 2200 AC 05/22 PO 2133 Heparin Sodium 5,000 UNIT Q8 05/23 1000 AC 05/23 (Porcine) SC 1317 Metronidazole 500 MG Q8 05/23 1400 AC PO Metronidazole 500 MG Q8H 05/18 0500 DC 05/23 N/A 1 UNIT IV 1317 Omeprazole 20 MG DAILY AC 05/18 0700 AC 05/23 PO 0535 Vitamin A/Vitamin D 1 LAURYN BID 05/23 1450 TOP Zinc Oxide 1 LAURYN BID 05/22 1039 NH 05/23 TOP 1030 Last 24 Hrs of Lab/Jack Results Last 24 Hrs of Labs/Mics: Laboratory Tests 05/23/17 0636: Anion Gap 13, Estimated GFR > 60, BUN/Creatinine Ratio 12.5, CBC w Diff NO MAN DIFF REQ, RBC 3.69 L, MCV 85.6, MCH 28.4, RDW 16.3 H, MPV 7.6, Gran % 64.4, Lymphocytes % 23.0, Monocytes % 8.1, Eosinophils % 4.1, Basophils % 0.4, Absolute Granulocytes 6.0, Absolute Lymphocytes 2.1, Absolute Monocytes 0.8 H, Absolute Eosinophils 0.4, Absolute Basophils 0, PUBS MCHC 33.2 Assessment/Plan Assessment: Patient is an 85-year-old male with a past medical history of COPD on 2 L, diastolic CHF, chronic DVT status post IVC not on anticoagulation due to intracranial bleed, hypertension, hyperlipidemia, that came in from [facility] for productive cough and fever for the past 2 days. His temperature here was found to be 101.0 and O2 sats are 88% on 2 L of oxygen. He denied chest pain, shortness of breath, palpitations, nausea vomiting, diarrhea constipation, abdominal pain, bloody bowel movements, urinary incontinence, burning, hematuria. Patient's WBC count was found to be 9.6 on arrival and 13 later in the day. Hemoglobin was 12.2, creatinine 9, lactic acid was found to be 2.3 at admission and 3.4 later in the day which fell to 2.4 and then hay to 2. 6 in the evening. He was also found to have proBNP of 1390 and left shift. Chest x-ray showed no focal consolidation CT abdomen and pelvis showed acute diverticulitis of the proximal sigmoid colon in the lower left quadrant with no abscess or pneumoperitoneum. Additionally ureteral calculus with hydronephrosis is seen. CT chest showed stable large hiatal hernia containing the entire stomach and streaky and patchy consolidation in the right lower lobe and posterior right upper lobe equal opportunity representative of atelectasis or pneumonia. Patient remains afebrile with white blood cell count trending down Plan #New onset A. fib with RVR * continue Multaq #Acute sigmoid diverticulitis * Continue Flagyl # Rt side Pneumonia * Continue ceftriaxone. Vanco and ceftaz were stopped. #Urology was consulted for ureteral calculus with hydronephrosis. * Recommendation for conservative management by urology #Rule out PE To rule out PE setting of decreased oxygenation, IVC filter is not 100% effective and a PE may lead to atrial fibrillation with decreased oxygenation, we ordered a d-dimer which was elevated and lower extremity Dopplers which were positive for chronic DVT as well as acute new DVTs. * Patient had previous brain bleed in February 2015. Head MRI showed late subacute hemorrhage centered within the left cingulate gyrus causing subtle distortion of the left lateral ventricle. No midline shift or herniation found. The cause of the brain bleed was never elucidated. 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 * We followed up with Dr. Joshua, neurologist who saw the patient when he had his previous brain bleed in 2014. He recommended we give heparin drip for now and that he would see the patient. In his notes from 2014 he attributed the patient 's symptoms to cervical spine issues and not to the brain bleed. However, the brain bleed did occur and following this, the patient was placed in an IVC filter. * Dr. Joshua saw the patient today and given his past he could not safely recommend giving heparin. Thus we did a VQ scan with the aim of being able to shut off the heparin. VQ scan showed very low probability of pulmonary embolism so heparin was DC'd and remains off. #disposition pt is suggesting str #Swallowing difficulty * Patient has been on nectar thick liquids and regular solids. * Patient had modified barium swallow and speech therapist did a repeat consult and recommended the patient on nectar thick liquids and chopped solids for now. FULL CODE REGULAR DIET WITH NECTAR THICK LIQUIDS DVT PROPHYLAXIS WITH ALPS Problem List: 1. Pneumonia 2. Atrial fibrillation with RVR 3. History of intracranial hemorrhage 4. Anemia 5. Ureterolithiasis 6. Diverticulitis 7. Aspiration pneumonia Pain Ratin Pain Location: upper legs Pain Goal: Remain pain free Pain Plan: prn Tomorrow's Labs & Rationales: cbc bep Siobhan Paul 05/23/17 1458: Attending MD Review Statement Attending Statement Attending MD Statement: examined this patient, discuss w/resident/PA/SEWER AND DRAIN TECHNICIAN, agreed w/resident/PA/SEWER AND DRAIN TECHNICIAN, discussed with family, reviewed EMR data (avail), discussed with nursing, discussed with case mgmt Attending Assessment/Plan: sigmoid diverticulitis and possible pneumonia- ID recommeding switching to po cipro and flagyl. will switch to that today. d/w pts at bedside the anticoagulation again today and we decided not to do anticoagulation for his DVTs given his ICH in Jan. D/w her MRI brain results from jan 2015. d/w case management the care plan and plan is to dc him back to [facility] when bed is available. Possible dc today or tomorrow.
[2017-05-23 14:47] VITALS: BP 120/62
--- NOTE | 2017-05-23 14:56 | PN- Cardiology ---
Subjective Subjective: * Patient feels well without symptoms. * sinus rhythm with first degree AV block * sodium is 151 Objective Vital Signs and I&Os Vital Signs Date Time Temp Pulse Resp B/P B/P Pulse O2 O2 Flow FiO2 Mean Ox Delivery Rate 05/23 1447 97.9 65 28 120/62 94 Nasal 2.0L Cannula 05/23 904 92 Nasal 2.0L Cannula 05/23 0849 68 132/76 05/23 0800 94 Nasal 2.0L Cannula 05/23 0653 97.8 59 20 132/76 94 Nasal Cannula 05/22 2205 97.4 68 20 118/70 94 05/22 2142 Nasal 2.0L Cannula 05/22 2135 67 130/72 05/22 1900 95 Nasal 3.0L Cannula Intake & Output 05/23 1600 05/23 0800 05/23 0000 05/22 1600 05/22 0000 Intake Total 850 200 342 500 360 600 Output Total Balance 850 200 342 500 360 600 Intake, IV 130 200 140 120 Intake, Oral 720 342 360 240 600 Number 1 1 Bowel Movements Physical Exam: General: WD/obese male in NAD; awake and responsive with decreased memory Neck: no JVD, no carotid bruit Heart: RRR without murmur Lungs: no crackles or wheezing Extremities: no edema Assessment/Plan Assessment/Plan * This patient presented with atrial fibrillation of unkown duration. His heart rate was reasonably well controlled without medications which is indicative of conduction system disease. He is now in a sinus rhythm. Continue Multaq 400mg BID to maintain a sinus rhythm and avoid the need for chronic anticoagulation. * Encourage oral fluids since his sodium level is rising. * Follow up in the office in a week. Continue telemetry? No
[2017-05-23 22:13] VITALS: BP 112/62
--- NOTE | 2017-05-24 01:12 | Event Note ---
Event Note Event Note: Nurse paged stating patient's Na is 151 since 6AM. Patient's sodium level has been trending up from 141 since admission. I spoke to the patient who at baseline is confused per nursing. Denies any symptoms of headache, n/v, visual changes. Denies shortness of breath. Exam shows trace bilateral edema and mild expiratory wheezing on lung exam. Patient is currently on 2L NC which is his baseline. Repeat BEP was ordered- showed sodium of 153. Urine lytes were ordered. Patient was started on D5W @ 100cc/hr. Repeat BEP was ordered for 3AM and 6AM. This plan was discussed with Dr. Salgado who was present at the time of the page.
[2017-05-24 05:46] VITALS: BP 102/56
[2017-05-24 08:25] LABS: ABSOLUTE BASOPHIL COUNT 0 /CUMM (0.0-0.2); ABSOLUTE EOSINOPHIL COUNT 0.5 /CUMM (0.0-0.7); ABSOLUTE GRANULOCYTE CT 6.4 /CUMM (1.4-6.5); ABSOLUTE MONOCYTE COUNT 0.7 /CUMM (0.10-0.60); BASOPHIL % 0.4 % (0.0-2.0); EOSINOPHIL % 5.5 % (0-5); GRANULOCYTE % 65.8 % (42.2-75.2); HEMATOCRIT 30.1 % (42-52); MEAN CORPUSCULAR HGB 28.8 PG (27.0-31.0); MEAN CORPUSCULAR HGB CONC 33.3 G/DL (33.0-37.0); MEAN CORPUSCULAR VOLUME 86.6 FL (80.0-94.0); PLATELET COUNT 262 /CUMM (130-400); RBC DISTRIBUTION WIDTH 16.9 % (11.5-14.5); RED BLOOD CELL CT 3.48 /CUMM (4.70-6.10); WHITE BLOOD CELL COUNT 9.7 /CUMM (4.8-10.8)
--- NOTE | 2017-05-24 11:40 | PN- Housestaff ---
See Addendum Gold SANTIAGO,Radha 05/24/17 1140: Subjective Follow-up For: Pneumonia New onset A. fib Diverticulitis Ureteral calculus Hypernatremia Complaints: no complaints Subjective: Patient has no complaints Review of Systems Constitutional: Reports: no symptoms. Objective Last 24 Hrs of Vital Signs/I&O Vital Signs Date Time Temp Pulse Resp B/P B/P Pulse O2 O2 Flow FiO2 Mean Ox Delivery Rate 05/24 1644 95 Nasal 2.0L Cannula 05/24 1600 96 Nasal 2.0L Cannula 05/24 1501 97.7 62 18 98/62 96 Nasal 2.0L Cannula 05/24 0850 74 102/56 05/24 0831 98 Nasal 2.0L Cannula 05/24 0800 94 Nasal 2.0L Cannula 05/24 0546 98.0 74 18 102/56 94 Nasal Cannula 05/24 0000 96 Nasal 2.0L Cannula 05/23 2253 76 112/62 05/23 2213 98.1 76 18 112/62 94 Nasal 2.0L Cannula 05/23 1900 93 Nasal 2.0L Cannula Intake & Output 05/24 1600 05/24 0800 05/24 0000 Intake Total 1520 980 600 Output Total Balance 1520 980 600 Intake, IV 800 500 Intake, Oral 720 480 600 Number 2 Bowel Movements Physical Exam General Appearance: Alert, Cooperative, No Acute Distress Skin: patient has sacral decubitus ulcers Skin Temp/Moisture Exam: Warm/Dry Cardiovascular: Regular Rate, Normal S1, Normal S2, No Murmurs Lungs: Clear to Auscultation, Normal Air Movement Extremities: No Clubbing, No Cyanosis Current Medications: Current Medications Sig/Pierre Start time Last Medication Dose Route Stop Time Status Admin Acetaminophen 650 MG Q6PRN PRN 05/18 0345 AC 05/18 PO 0834 Acetaminophen 1,000 MG Q6PRN PRN 05/18 0345 AC 05/19 IV 1502 Albuterol Sulfate 3 ML BID 05/18 1400 AC 05/24 INH 1631 Aspirin 81 MG DAILY 05/18 1000 AC 05/24 PO 0850 Atorvastatin Calcium 20 MG AT BEDTIME 05/18 2200 AC 05/23 PO 2252 Ciprofloxacin 500 MG BID 05/23 2200 AC 05/24 PO 05/27 2158 0850 Dextrose/Water 1,000 ML Q10H 05/24 0145 AC 05/24 IV 1310 Donepezil HCl 10 MG AT BEDTIME 05/18 2200 AC 05/23 PO 2257 Dronedarone 400 MG BID 05/20 1315 AC 05/24 PO 0850 Finasteride 5 MG DAILY 05/18 1000 AC 05/24 PO 0850 Gabapentin 300 MG AT BEDTIME 05/18 2200 AC 05/23 PO 2252 Heparin Sodium 5,000 UNIT Q8 05/23 1000 AC 05/24 (Porcine) SC 1618 Metronidazole 500 MG Q8 05/23 1400 AC 05/24 PO 1618 Omeprazole 20 MG DAILY AC 05/18 0700 AC 05/24 PO 0700 Vitamin A/Vitamin D 1 LAURYN BID 05/23 1450 05/24 [facility] 1022 Last 24 Hrs of Lab/Jack Results Last 24 Hrs of Labs/Mics: Laboratory Tests 05/24/17 1520: 05/24/17 0636: Anion Gap 10, Estimated GFR > 60, BUN/Creatinine Ratio 10.0, CBC w Diff NO MAN DIFF REQ, RBC 3.48 L, MCV 86.6, MCH 28.8, RDW 16.9 H, MPV 8.0, Gran % 65.8, Lymphocytes % 20.7, Monocytes % 7.6, Eosinophils % 5.5 H, Basophils % 0.4, Absolute Granulocytes 6.4, Absolute Lymphocytes 2.0, Absolute Monocytes 0.7 H, Absolute Eosinophils 0.5, Absolute Basophils 0, PUBS MCHC 33.3 05/24/17 0330: Anion Gap 14, Estimated GFR > 60, BUN/Creatinine Ratio 10.0, Glucose 127 H 05/24/17 0312: Glucose Cancelled 05/24/17 0125: Urine Osmolality 576, Ur Random Creatinine 131.0, Ur Random Sodium 121 H, Ur Random Potassium 41.8, Fraction Sodium Excret 0.5 05/24/17 0045: Anion Gap 13, Estimated GFR > 60, BUN/Creatinine Ratio 11.3, Serum Osmolality 303 H Assessment/Plan Assessment: Patient is an 85-year-old male with a past medical history of COPD on 2 L, diastolic CHF, chronic DVT status post IVC not on anticoagulation due to intracranial bleed, hypertension, hyperlipidemia, that came in from [facility] for productive cough and fever for the past 2 days. His temperature here was found to be 101.0 and O2 sats are 88% on 2 L of oxygen. He denied chest pain, shortness of breath, palpitations, nausea vomiting, diarrhea constipation, abdominal pain, bloody bowel movements, urinary incontinence, burning, hematuria. Patient's WBC count was found to be 9.6 on arrival and 13 later in the day. Hemoglobin was 12.2, creatinine 9, lactic acid was found to be 2.3 at admission and 3.4 later in the day which fell to 2.4 and then hay to 2. 6 in the evening. He was also found to have proBNP of 1390 and left shift. Chest x-ray showed no focal consolidation CT abdomen and pelvis showed acute diverticulitis of the proximal sigmoid colon in the lower left quadrant with no abscess or pneumoperitoneum. Additionally ureteral calculus with hydronephrosis is seen. 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 Patient remains afebrile with white blood cell count trending down. She was found to have hypernatremia up to 153 last night. He was started on D5 water at 100 mL per hour. Of note patient cannot drink liquids as speech and swallow stated that the patient had a liquids sitting up of his vocal cords with a concern for aspiration. Plan #New onset A. fib with RVR * continue Multaq 400 mg twice a day If patient becomes bradycardic Aricept can be stopped #Acute sigmoid diverticulitis * Continue Flagyl 500 mg every 8 by mouth # Rt side Pneumonia * Ceftriaxone has been stopped and Cipro 500 twice a day by mouth has been started #Urology was consulted for ureteral calculus with hydronephrosis. * Recommendation for conservative management by urology #Rule out PE To rule out PE setting of decreased oxygenation, IVC filter is not 100% effective and a PE may lead to atrial fibrillation with decreased oxygenation, we ordered a d-dimer which was elevated and lower extremity Dopplers which were positive for chronic DVT as well as acute new DVTs. * Patient had previous brain bleed in February 2015. Head MRI showed late subacute hemorrhage centered within the left cingulate gyrus causing subtle distortion of the left lateral ventricle. No midline shift or herniation found. The cause of the brain bleed was never elucidated. 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 * We followed up with Dr. Joshua, neurologist who saw the patient when he had his previous brain bleed in 2014. He recommended we give heparin drip for now and that he would see the patient. In his notes from 2014 he attributed the patient 's symptoms to cervical spine issues and not to the brain bleed. However, the brain bleed did occur and following this, the patient was placed in an IVC filter. * Dr. Joshau saw the patient today and given his past he could not safely recommend giving heparin. Thus we did a VQ scan with the aim of being able to shut off the heparin. VQ scan showed very low probability of pulmonary embolism so heparin was DC'd and remains off. #disposition will return to [facility] #Swallowing difficulty * Patient has been on nectar thick liquids and regular solids. * Patient had modified barium swallow and speech therapist did a repeat consult and recommended the patient on nectar thick liquids and chopped solids for now. #Generalized pain Patient is on Tylenol as needed BPH Finasteride 5 milligrams by mouth daily GERD Continue PPI omeprazole 20 mg daily Dementia Continue patient on Aricept Peripheral neuropathy Gabapentin 300 mg by mouth daily Sacral decubitus ulcers Continue dressing and application of vitamin A/D Wound care consult appreciated FULL CODE REGULAR DIET WITH NECTAR THICK LIQUIDS DVT PROPHYLAXIS WITH HEPARIN SUBCUTANEOUS Problem List: 1. Atrial fibrillation with RVR 2. Pneumonia 3. History of intracranial hemorrhage 4. Anemia 5. Ureterolithiasis 6. Diverticulitis Pain Ratin Pain Location: na Pain Goal: Remain pain free Pain Plan: na Tomorrow's Labs & Rationales: CBC and BEP Siobhan Paul 05/24/17 1629: Attending MD Review Statement Attending Statement Attending MD Statement: examined this patient, discuss w/resident/PA/HVAC DESIGN ENGINEER, agreed w/resident/PA/HVAC DESIGN ENGINEER, reviewed EMR data (avail), discussed with nursing, discussed with case mgmt Attending Assessment/Plan: sigmoid diverticulitis and possible pneumonia- ID following. currently on po cipro and flagyl. Hypernatremia- secondary to free water deficit due to poor po intake. resolving, cont on D5W and encouraged pt to drink more water. Pt is on nectar thick liquids. DVTs- B/L- after discussion with family we decided not to do anticoagulation for his DVTs given his ICH in Jan. D/w her MRI brain results from jan 2015. d/w case management the care plan and plan is to dc him back to [facility] possibly tomorrow. d/w pt the care plan.
[2017-05-24 15:01] VITALS: BP 98/62
[2017-05-25 06:00] VITALS: BP 90/60
--- NOTE | 2017-05-25 11:48 | PN- Infect Dx ---
Subjective Subjective: Afebrile without complaints Objective Last 24 Hrs of Vital Signs/I&O Vital Signs Date Time Temp Pulse Resp B/P B/P Pulse O2 O2 Flow FiO2 Mean Ox Delivery Rate 05/25 1040 98 Nasal 2.0L Cannula 05/25 799 97 Nasal 2.0L Cannula 05/25 06 98.3 64 20 90/60 94 05/24 2140 Nasal 2.0L Cannula 05/24 2034 58 110/68 05/24 1644 95 Nasal 2.0L Cannula 05/24 1600 96 Nasal 2.0L Cannula 05/24 1501 97.7 62 18 98/62 96 Nasal 2.0L Cannula Intake & Output 05/25 1600 05/25 0800 05/25 0000 Intake Total 600 360 Output Total Balance 600 360 Intake, IV 600 Intake, Oral 360 Number 1 Bowel Movements Physical Exam Other Physical Findings: He appears comfortable in no acute distress Lungs bilateral expiratory wheezes Heart regular rhythm with no murmur Abdomen is soft, tender on palpation over the right lower quadrant, with no guarding or rebound, positive bowel sounds Extremities bilateral lower extremity edema persists, right greater than left Results Last 24 Hours of Lab Results: Laboratory Tests 05/25 05/24 0711 1520 Chemistry Sodium (137 - 145 mmol/L) 144 146 H Potassium (3.5 - 5.1 mmol/L) 3.5 Chloride (98 - 107 mmol/L) 105 Carbon Dioxide (22 - 30 mmol/L) 27 Anion Gap (5 - 16) 12 BUN (9 - 20 mg/dL) 6 L Creatinine (0.7 - 1.2 mg/dL) 0.8 Estimated GFR (>60 ml/min) > 60 BUN/Creatinine Ratio (7 - 25 %) 7.5 Last 24 Hours of Jack Results: No new cultures Assessment/Plan Impression: Stable, with temperatures and white blood cell count remaining normal, now on Ciprofloxacin and Flagyl, Day 7 of treatment for sigmoid diverticulitis and possible pneumonia. Suggestion: 1. Continue Ciprofloxacin and Flagyl for 1 more week
--- NOTE | 2017-05-25 14:32 | PN- Housestaff ---
Gold SANTIAGO,Radha 05/25/17 1432: Subjective Follow-up For: Pneumonia New onset A. fib Diverticulitis Ureteral calculus Hypernatremia Subjective: PATIENT HAS NO COMPLAINTS THIS MORNING. Review of Systems Constitutional: Reports: no symptoms. Objective Last 24 Hrs of Vital Signs/I&O Vital Signs Date Time Temp Pulse Resp B/P B/P Pulse O2 O2 Flow FiO2 Mean Ox Delivery Rate 05/26 0000 Nasal 2.0L Cannula 05/25 2201 98.6 68 26 124/68 98 05/25 2114 124/68 05/25 2005 95 Nasal 2.0L Cannula 05/25 1436 98.1 65 24 110/64 96 Nasal 2.0L Cannula 05/25 1040 98 Nasal 2.0L Cannula Intake & Output 05/26 1600 05/26 0800 05/26 0000 Intake Total 150 100 Output Total 400 Balance -250 100 Intake, Oral 150 100 Number 1 Bowel Movements Output, Urine 400 Physical Exam General Appearance: Alert, Cooperative Cardiovascular: Normal S1, Normal S2, No Murmurs Lungs: Clear to Auscultation, Normal Air Movement Assessment/Plan Assessment: Patient is an 85-year-old male with a past medical history of COPD on 2 L, diastolic CHF, chronic DVT status post IVC not on anticoagulation due to intracranial bleed, hypertension, hyperlipidemia, that came in from [facility] for productive cough and fever for the past 2 days. His temperature here was found to be 101.0 and O2 sats are 88% on 2 L of oxygen. He denied chest pain, shortness of breath, palpitations, nausea vomiting, diarrhea constipation, abdominal pain, bloody bowel movements, urinary incontinence, burning, hematuria. Patient's WBC count was found to be 9.6 on arrival and 13 later in the day. Hemoglobin was 12.2, creatinine 9, lactic acid was found to be 2.3 at admission and 3.4 later in the day which fell to 2.4 and then hay to 2. 6 in the evening. He was also found to have proBNP of 1390 and left shift. Chest x-ray showed no focal consolidation CT abdomen and pelvis showed acute diverticulitis of the proximal sigmoid colon in the lower left quadrant with no abscess or pneumoperitoneum. Additionally ureteral calculus with hydronephrosis is seen. 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 Patient remains afebrile with white blood cell count trending down. he was found to have hypernatremia up to 153 two nights ago. He was started on D5 water at 100 mL per hour. Of note patient cannot drink liquids as speech and swallow stated that the patient had a liquids sitting up of his vocal cords with a concern for aspiration. Today his sodium is 144. Plan #New onset A. fib with RVR * continue Multaq 400 mg twice a day If patient becomes bradycardic Aricept can be stopped patient will be referred to dr. hernandez outpatient. #Acute sigmoid diverticulitis * Continue Flagyl 500 mg every 8 by mouth will be discharged to complete course 10 days # Rt side Pneumonia * Ceftriaxone has been stopped and Cipro 500 twice a day by mouth has been started will be discharged to complete course 10 days #Urology was consulted for ureteral calculus with hydronephrosis. * Recommendation for conservative management by urology will follow up outpatient with dr. marcelo #Rule out PE To rule out PE setting of decreased oxygenation, IVC filter is not 100% effective and a PE may lead to atrial fibrillation with decreased oxygenation, we ordered a d-dimer which was elevated and lower extremity Dopplers which were positive for chronic DVT as well as acute new DVTs. * Patient had previous brain bleed in February 2015. Head MRI showed late subacute hemorrhage centered within the left cingulate gyrus causing subtle distortion of the left lateral ventricle. No midline shift or herniation found. The cause of the brain bleed was never elucidated. 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 * We followed up with Dr. Joshua, neurologist who saw the patient when he had his previous brain bleed in 2014. He recommended we give heparin drip for now and that he would see the patient. In his notes from 2014 he attributed the patient 's symptoms to cervical spine issues and not to the brain bleed. However, the brain bleed did occur and following this, the patient was placed in an IVC filter. * Dr. Joshua saw the patient today and given his past he could not safely recommend giving heparin. Thus we did a VQ scan with the aim of being able to shut off the heparin. VQ scan showed very low probability of pulmonary embolism so heparin was DC'd and remains off. #disposition will return to [facility] #Swallowing difficulty * Patient has been on nectar thick liquids and regular solids. * Patient had modified barium swallow and speech therapist did a repeat consult and recommended the patient on nectar thick liquids and chopped solids for now. #hypernatremia we will discontinue fluids and then test sodium in the morning. if it has normalized, we will dc patient. if not, we will decide next steps as patient would be chronically hypernatremic since he cannot drink fluids (diet remains nectar thick liquids) #Generalized pain Patient is on Tylenol as needed BPH Finasteride 5 milligrams by mouth daily GERD Continue PPI omeprazole 20 mg daily Dementia Continue patient on Aricept Peripheral neuropathy Gabapentin 300 mg by mouth daily Sacral decubitus ulcers Continue dressing and application of vitamin A/D Wound care consult appreciated FULL CODE REGULAR DIET WITH NECTAR THICK LIQUIDS DVT PROPHYLAXIS WITH HEPARIN SUBCUTANEOUS Problem List: 1. Atrial fibrillation with RVR 2. History of intracranial hemorrhage 3. Ureterolithiasis 4. Diverticulitis 5. Pneumonia Pain Ratin Pain Location: NA Pain Goal: Remain pain free Pain Plan: NA Tomorrow's Labs & Rationales: CBC BEP Malinda Paulenriqueta 05/25/17 1528: Attending MD Review Statement Attending Statement Attending MD Statement: examined this patient, discuss w/resident/PA/PEDIATRIC CNS, agreed w/resident/PA/PEDIATRIC CNS, reviewed EMR data (avail), discussed with nursing, discussed with case mgmt Attending Assessment/Plan: sigmoid diverticulitis and possible pneumonia- ID following. currently on po cipro and flagyl. Hypernatremia- secondary to free water deficit due to poor po intake. resolving, dc D5W and encouraged pt to drink more water. Pt is on nectar thick liquids. If sodium remains stable off D5W tomorrow. pt can be dced to [facility]. DVTs- B/L- after discussion with family we decided not to do anticoagulation for his DVTs given his ICH in Jan. D/w her MRI brain results from jan 2015. d/w case management the care plan and plan is to dc him back to [facility] possibly tomorrow if sodium remains stable.
[2017-05-25 14:36] VITALS: BP 110/64
[2017-05-25] MEDS ORDERED: FLAGYL500 MG PO ×2 (15:13→16:07)
[2017-05-25] MEDS ORDERED: CIPRO500 M1 PO ×2 (15:13→16:07)
[2017-05-25] MEDS ORDERED: MULTAQ400 M1 PO (15:14)
--- NOTE | 2017-05-25 15:38 | Patient Discharge Instructions ---
Discharge Instructions General Discharge Information You were seen/treated for: pneumonia diverticulitis chronic and acute dvts new onset afib Special Instructions: 1. follow up with pcp in one week 2. follow up with aircraft servicer dr. hernandez in one week 3. follow up with urologist dr marcelo in one week Diet Continue normal diet: Yes Activity Full Activity/No Limits: Yes Acute Coronary Syndrome Inclusion Criteria At DC or during hospital stay patient has or had the following: ACS DIAGNOSIS No Discharge Core Measures Meds if any: Prescribed or Continued at Discharge Meds if any: NOT Prescribed or Continued at Discharge Congestive Heart Failure Inclusion Criteria At DC or during hospital stay patient has or had the following: CHF DIAGNOSIS No Discharge Core Measures Meds if any: Prescribed or Continued at Discharge Meds if any: NOT Prescribed or Continued at Discharge Cerebrovascular accident Inclusion Criteria At DC or during hospital stay patient has or had the following: CVA/TIA Diagnosis No Discharge Core Measures Meds if any: Prescribed or Continued at Discharge Meds if any: NOT Prescribed or Continued at Discharge Venous thromboembolism Inclusion Criteria VTE Diagnosis No VTE Type NONE VTE Confirmed by (Test) NONE Discharge Core Measures - Per Current guidelines, there needs to be overlap - treatment for the first 5 days of Warfarin therapy. - If discharged on Warfarin prior to 5 days of - overlap therapy, the patient will need to be - assessed for post discharge needs including - *Post discharge parental anticoagulation - *Warfarin and/or parental anticoagulation education - *Follow up date to check INR post discharge At least 5 days overlap therapy as Inpatient No Meds if any: Prescribed or Continued at Discharge Note: Overlap Therapy is Warfarin and Anticoagulant Meds if any: NOT Prescribed or Continued at Discharge
[2017-05-25 22:01] VITALS: BP 124/68
[2017-05-26 08:00] VITALS: BP 116/72
[2017-05-26 09:08] LABS: ABSOLUTE BASOPHIL COUNT 0.1 /CUMM (0.0-0.2); ABSOLUTE EOSINOPHIL COUNT 0.5 /CUMM (0.0-0.7); ABSOLUTE GRANULOCYTE CT 6.8 /CUMM (1.4-6.5); ABSOLUTE LYMPH COUNT 2.2 /CUMM (1.2-3.4); ABSOLUTE MONOCYTE COUNT 0.7 /CUMM (0.10-0.60); BASOPHIL % 0.6 % (0.0-2.0); EOSINOPHIL % 5.3 % (0-5); GRANULOCYTE % 66.1 % (42.2-75.2); HEMATOCRIT 31.8 % (42-52); MEAN CORPUSCULAR HGB 28.2 PG (27.0-31.0); MEAN CORPUSCULAR HGB CONC 32.7 G/DL (33.0-37.0); MEAN CORPUSCULAR VOLUME 86.4 FL (80.0-94.0); MEAN PLATELET VOLUME 8.4 FL (7.4-10.4); PLATELET COUNT 297 /CUMM (130-400); RBC DISTRIBUTION WIDTH 16.8 % (11.5-14.5); RED BLOOD CELL CT 3.68 /CUMM (4.70-6.10); WHITE BLOOD CELL COUNT 10.3 /CUMM (4.8-10.8)
[2017-05-26 09:30] VITALS: BP 116/72
--- NOTE | 2017-05-26 09:58 | PN- Housestaff ---
Gold SANTIAGO,Radha 05/26/17 0957: Subjective Follow-up For: Pneumonia New onset A. fib Diverticulitis Ureteral calculus Hypernatremia Subjective: patient has no complaints today. Review of Systems Constitutional: Reports: no symptoms. Objective Last 24 Hrs of Vital Signs/I&O Vital Signs Date Time Temp Pulse Resp B/P B/P Pulse O2 O2 Flow FiO2 Mean Ox Delivery Rate 05/26 1014 95 Nasal 2.0L Cannula 05/26 0930 64 116/72 05/26 0800 95 Nasal 2.0L Cannula 05/26 08 98.3 64 22 116/72 95 Nasal 2.0L Cannula 05/26 0000 Nasal 2.0L Cannula Intake & Output 05/26 1600 05/26 0800 05/26 0000 Intake Total 150 100 Output Total 400 Balance -250 100 Intake, Oral 150 100 Number 1 Bowel Movements Output, Urine 400 Physical Exam General Appearance: Alert, Cooperative, No Acute Distress Cardiovascular: Regular Rate, Normal S1, Normal S2, No Murmurs Lungs: Normal Air Movement Assessment/Plan Assessment: Patient is an 85-year-old male with a past medical history of COPD on 2 L, diastolic CHF, chronic DVT status post IVC not on anticoagulation due to intracranial bleed, hypertension, hyperlipidemia, that came in from [facility] for productive cough and fever for the past 2 days. His temperature here was found to be 101.0 and O2 sats are 88% on 2 L of oxygen. He denied chest pain, shortness of breath, palpitations, nausea vomiting, diarrhea constipation, abdominal pain, bloody bowel movements, urinary incontinence, burning, hematuria. Patient's WBC count was found to be 9.6 on arrival and 13 later in the day. Hemoglobin was 12.2, creatinine 9, lactic acid was found to be 2.3 at admission and 3.4 later in the day which fell to 2.4 and then hay to 2. 6 in the evening. He was also found to have proBNP of 1390 and left shift. Chest x-ray showed no focal consolidation CT abdomen and pelvis showed acute diverticulitis of the proximal sigmoid colon in the lower left quadrant with no abscess or pneumoperitoneum. Additionally ureteral calculus with hydronephrosis is seen. CT chest showed stable large hiatal hernia containing the entire stomach and streaky and patchy consolidation in the right lower lobe and posterior right upper lobe self pay representative of atelectasis or pneumonia. Patient remains afebrile with white blood cell count trending down. he was found to have hypernatremia up to 153 two nights ago. He was started on D5 water at 100 mL per hour. Of note patient cannot drink liquids as speech and swallow stated that the patient had a liquids sitting up of his vocal cords with a concern for aspiration. today without fluids, sodium is 145. Plan #New onset A. fib with RVR * continue Multaq 400 mg twice a day If patient becomes bradycardic Aricept can be stopped patient will be referred to dr. hernandez outpatient. #Acute sigmoid diverticulitis * Continue Flagyl 500 mg every 8 by mouth will be discharged to complete course 10 days # Rt side Pneumonia * Ceftriaxone has been stopped and Cipro 500 twice a day by mouth has been started will be discharged to complete course 10 days #Urology was consulted for ureteral calculus with hydronephrosis. * Recommendation for conservative management by urology will follow up outpatient with dr. marcelo #Rule out PE To rule out PE setting of decreased oxygenation, IVC filter is not 100% effective and a PE may lead to atrial fibrillation with decreased oxygenation, we ordered a d-dimer which was elevated and lower extremity Dopplers which were positive for chronic DVT as well as acute new DVTs. * Patient had previous brain bleed in February 2015. Head MRI showed late subacute hemorrhage centered within the left cingulate gyrus causing subtle distortion of the left lateral ventricle. No midline shift or herniation found. The cause of the brain bleed was never elucidated. 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 * We followed up with Dr. Joshua, neurologist who saw the patient when he had his previous brain bleed in 2014. He recommended we give heparin drip for now and that he would see the patient. In his notes from 2015 he attributed the patient 's symptoms to cervical spine issues and not to the brain bleed. However, the brain bleed did occur and following this, the patient was placed in an IVC filter. * Dr. Joshua saw the patient today and given his past he could not safely recommend giving heparin. Thus we did a VQ scan with the aim of being able to shut off the heparin. VQ scan showed very low probability of pulmonary embolism so heparin was DC'd and remains off. #disposition will return to [facility] #Swallowing difficulty * Patient has been on nectar thick liquids and regular solids. * Patient had modified barium swallow and speech therapist did a repeat consult and recommended the patient on nectar thick liquids and chopped solids for now. #hypernatremia resolved off fluids #Generalized pain Patient is on Tylenol as needed BPH Finasteride 5 milligrams by mouth daily GERD Continue PPI omeprazole 20 mg daily Dementia Continue patient on Aricept Peripheral neuropathy Gabapentin 300 mg by mouth daily Sacral decubitus ulcers Continue dressing and application of vitamin A/D Wound care consult appreciated FULL CODE REGULAR DIET WITH NECTAR THICK LIQUIDS DVT PROPHYLAXIS WITH HEPARIN SUBCUTANEOUS Problem List: 1. Atrial fibrillation with RVR 2. Pneumonia 3. History of intracranial hemorrhage 4. Ureterolithiasis 5. Anemia 6. Diverticulitis Pain Ratin Pain Location: na Pain Goal: Remain pain free Pain Plan: na Tomorrow's Labs & Rationales: to be discharged today Crissy Buck MD 05/26/17 1114: Attending MD Review Statement Attending Statement Attending MD Statement: examined this patient, discuss w/resident/PA/POLYMER CHEMIST, agreed w/resident/PA/POLYMER CHEMIST, reviewed EMR data (avail), discussed with nursing, discussed with case mgmt, amended to note Attending Assessment/Plan: Patient seen and examined. Resting comfortably and not in acute distress. No issues overnight. No diarrhea reported by nursing staff. No bloody stools. Denies nausea vomiting. Denies abdominal pain. Tolerating diet. On examination lungs are clear to auscultation bilaterally abdomen is soft and nontender with normal bowel sounds. He has no peripheral edema. He is medically stable to be discharged today as planned by the primary team. Leukocytosis remains within normal limits. Sodium level remains within limits. He is to continue antibiotic course as recommended by the ID service.
== END 2017-05-26 13:05 | DRG 871 ==
LOC: ERH 00:48 → ERHI 03:22 → 1NO 03:22 → ERHI 10:47 → ENRESERV 23:02 → 1NO 05-19 00:34 → ENPENDDIS 05-26 10:26 → 1NO 05-26 13:05
PROVIDERS: Emergency Medicine; Internal Medicine; Internal Medicine Adolescent Medicine; Student in an Organized Health Care Education/Training Program
DX: A41.9 Sepsis, unspecified organism (principal); J96.01 Acute respiratory failure with hypoxia; L89.310 Pressure ulcer of right buttock, unstageable; J18.9 Pneumonia, unspecified organism; I82.413 Acute embolism and thrombosis of femoral vein, bilateral; E87.0 Hyperosmolality and hypernatremia; I11.0 Hypertensive heart disease with heart failure; L89.320 Pressure ulcer of left buttock, unstageable; I48.91 Unspecified atrial fibrillation; I50.32 Chronic diastolic (congestive) heart failure; K57.92 Diverticulitis of intestine, part unspecified, without perforation or abscess without bleeding; I82.5Z2 Chronic embolism and thrombosis of unspecified deep veins of left distal lower extremity; N13.2 Hydronephrosis with renal and ureteral calculous obstruction; I82.433 Acute embolism and thrombosis of popliteal vein, bilateral; F03.90 Unspecified dementia, unspecified severity, without behavioral disturbance, psychotic disturbance, mood disturbance, and anxiety; E86.0 Dehydration; N40.0 Benign prostatic hyperplasia without lower urinary tract symptoms; J44.9 Chronic obstructive pulmonary disease, unspecified; E78.5 Hyperlipidemia, unspecified; G47.33 Obstructive sleep apnea (adult) (pediatric); K44.9 Diaphragmatic hernia without obstruction or gangrene
CPT/HCPCS: 1NP; 84133; 84300; ERO; 36415; 71045; 74177; 74230; 78582; 81001; 82436; 82570; 87040; 87070; 87086; 87449; 87450; 87804; 87804-59; 93005; 93010; 93306; 93970; 96361; 96365; 97110-GO; 97112-GO; 97161-GP; 97530-GO; 99291; A9540; A9558; J0696; J0713; J1644; J1650; J3370; J3490; J7040; J7060